=== PATIENT | male | born 1960 | race Caucasian/White ===

== ENCOUNTER 2017-03-31 11:23 | Inpatient (IN) ==
[2017-03-31 11:32] VITALS: BMI 25.9
--- OUTSIDE RECORDS SUMMARY | 2017-03-31 11:35 | External Medical Summary | Referral Summary ---
:1960 Author Organization [facility] Address [address] [place] [address] Care Team Providers Name Role Phone Sunil Perez Primary Care Physician Encounter [facility] [id number] Date(s): 01/03/15 - 01/03/15 [facility] [address], [place] [address] Final: OTHER MALAISE AND FATIGUE Final: CERVICAL SPONDYLOSIS WITHOUT MYELOPATHY Final: POSTSURGICAL ARTHRODESIS STATUS Discharge Disposition: 01-Home or Self Care Attending Physician: Kaci David MD Admitting Physician: Kaci David MD Vital Signs No data available for this section Problem List Condition Effective Dates Status Health Status Informant Acute pain(Confirmed) Active At risk for aspiration(Confirmed)1 Active At risk for injury(Confirmed)2 Active At risk of pressure sore(Confirmed) Active 1Problem added automatically by system based on initiation of At Risk for Aspiration Plan of [id number] added automatically by system based on initiation of Risk for Injury Plan of Care Allergies, Adverse Reactions, Alerts Substance Reaction Severity Status OxyCONTIN Active Medications acetaminophen 325 mg oral tablet 650 mg 2 tabs, Oral, q4hr, Pain Mild (1-3), 0 Refill(s) Start Date: 02/02/15 Status: Orderedbaclofen 10 mg oral tablet 10 mg 1 tabs, Oral, QID, # 120 tabs, 0 Refill(s) Start Date: 02/02/15 Stop Date: 03/04/15 Status: Orderedbisoprolol-hydrochlorothiazide 5 mg-6.25 mg oral tablet 1 tabs, Oral, Daily, # 30 tabs, 0 Refill(s) Start Date: 02/02/15 Status: OrderedCeleBREX 100 mg oral capsule 100 mg 1 caps, Oral, BID, # 60 caps, 0 Refill(s) Start Date: 02/02/15 Status: OrderedColace 100 mg oral capsule 100 mg 1 caps, Oral, BID, 0 Refill(s) Start Date: 02/02/15 Status: OrderedLasix 40 mg oral tablet 40 mg 1 tabs, Oral, Daily, # 30 tabs, 0 Refill(s) Start Date: 02/02/15 Status: Orderedloratadine 10 mg oral tablet 10 mg 1 tabs, Oral, Daily, 0 Refill(s) Start Date: 02/02/15 Status: Orderedpotassium chloride 20 mEq oral tablet, extended release 20 mEq 1 tabs, Oral, Daily, # 30 tabs, 0 Refill(s) Start Date: 02/02/15 Status: Orderedtamsulosin 0.4 mg oral capsule 0.4 mg 1 caps, Oral, Bedtime (once a day), # 30 caps, 0 Refill(s) Start Date: 02/02/15 Status: OrderedTums 500 mg oral tablet, chewable 500 mg 1 tabs, Oral, q4hr, GERD/Heartburn, 0 Refill(s) Start Date: 02/02/15 Status: Ordered Results No data available for this section Immunizations No data available for this section Procedures No data available for this section Social History Social History Type Response Smoking Status Former smoker Assessment and Plan No data available for this section
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
[2017-03-31] MEDS ORDERED: IBUPROFEN 200 MG TABLET PO PRN (13:18)
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
[2017-03-31] MEDS: IBUPROFEN 200 MG TABLET PO PRN (13:56)
--- NOTE | 2017-03-31 14:00 | IRU 24Hr Post Admit Eval ---
24 Hr Post Admission Physical - Relevant Changes Relevant Changes: No Reviewed: I have reviewed the patient's information and concur with the finding and results of the pre-admission screen. Certification: I certify the patient for rehabilitation. - Patient Condition (1) Cervical myelopathy Status: Chronic Code(s): G95.9 - Disease of spinal cord, unspecified Classification: Present on IRF Admission, IRF Tx That Should Address Diagnosis (2) Muscle spasticity Status: Chronic Code(s): M62.838 - Other muscle spasm Classification: Present on IRF Admission, IRF Tx That Should Address Diagnosis, Diagnosis Requiring Medical Follow Up (3) Benign essential hypertension Status: Chronic Code(s): I10 - Essential (primary) hypertension Classification: Present on IRF Admission, IRF Tx That Should Address Diagnosis, Diagnosis Requiring Medical Follow Up - Prior Functional Status Lives With: Spouse, With Family Residence Type: Apartment/Private Home Assitive Devices: Wheelchair Prior Functional Status: Depend. at home or school, Used assistive device, Need assist w/ home ADL, Depend. w/ IADL - Current Functional Status Current Level of Function: The patient currently requires minimal assistance for eating, maximal assistance for grooming, total assistance for bathing, upper and lower body dressing, toileting, bed/chair/wheelchair transfers, toilet transfers and wheelchair mobility. Failed Alternative Therapy: Yes (patient underwent previous physical therapy in the spring but has declined since that time.) Patient Requirements: The patient requires oversight by rehabilitation physician to manage their rehabilitation treatment plan and multidisciplinary approach to care that can only be provided in an IRF and requires a multidisciplinary approach to care, provided by professional PTs, OTs, STs, dieticians, RTs, rehabilitation nurses and is not available in lesser levels of care. Limitations Req: Mobility Impairment, ADL Impairment, Limited Mobility Physical Therapy Minutes: 90 Occupational Therapy Minutes: 90 Therapy: The patient is to receive therapy at least 5 days a week. - Complications/Comorbidities Impact on Functional Outcomes: The patient's muscle spasticity due to his cervical myelopathy may impact his functional outcome. Barriers to Discharge: Weakness, Endurance, Pain Control - Plan to Avoid Complications Plan to Avoid Complications: The patient cannot receive this care in a lesser intensive setting such as [facility] or Outpatient Therapy due to the patient requiring the following : Careful monitoring of the patient's blood pressure as he has experienced both low and high blood pressures in the past, 24 rehabilitation nursing management for his spasticity. .
[2017-03-31] MEDS ORDERED: INFLUENZA VAC. INJ. ADMIN CHARGE INJ ONE (14:10)
[2017-03-31] MEDS ORDERED: INFLUENZA VAC QIV 2017-18 (Fluarix*)(>=3yo) 0.5ml IM ONE (14:10)
[2017-03-31] MEDS ORDERED: ENOXAPARIN 40 MG/0.4 ML INJECTION SQ SCH (14:30)
[2017-03-31] MEDS: DOCUSATE SODIUM 100 MG CAPSULE PO SCH (22:01)
[2017-03-31] MEDS: TAMSULOSIN 0.4 MG CAPSULE PO SCH (22:01)
[2017-03-31] MEDS: ACETAMINOPHEN 325 MG TABLET PO PRN (22:04)
[2017-04-01] MEDS: DOCUSATE SODIUM 100 MG CAPSULE PO SCH ×2 (08:44→21:09)
[2017-04-01] MEDS: LACTOBACILLUS (15B cfu) CAPSULE PO SCH (08:45)
[2017-04-01] MEDS: IBUPROFEN 200 MG TABLET PO PRN (08:46)
--- NOTE | 2017-04-01 11:32 | IRU Progress Note ---
- Subjective/Serverity of Illness nAders was evaluated in his room on the IRU. He reports that he would prefer not to get the Lovenox in view of the presence of the baclofen pump which currently has saline in it. We will discontinue Lovenox. He has not received any to my knowledge. I did explain that the purpose was to prevent DVT/PE. He continues to decline this. Secondly, he would like to get his tizanidine at scheduled times. We will clarify this with pharmacy. His blood pressure is been quite variable with values ranging from 119 up to 187. We will continue with the current approach which is simply monitoring were than adding on a medication which might make him hypotensive. With regard to his spasticity, the main areas of concern are his low back and his legs he states. Exam Vital Signs: Temperature 98 F 04/01/17 08:08 Pulse Rate 110 H 04/01/17 08:08 Respiratory Rate 16 04/01/17 08:08 Blood Pressure 187/79 H 04/01/17 08:08 Pulse Oximetry 92 04/01/17 08:08 Height/Weight/BMI: Height 1.78 m Weight 82.2 kg Body Mass Index 25.9 Comments: The patient is awake, alert and oriented and in no acute distress. Pupils are equal. The neck is supple. Chest: Clear to auscultation bilaterally. Cor: RR with no gallop, click nor murmur Abd: soft with normo-active bowel sounds. There are no masses, no tenderness and no guarding. Extremities: No edema is noted. There are good pulses in both ankles. No cyanosis is present. Neuro: He is awake alert and oriented. Cranial nerves II through XII appear to be intact bilaterally. Does have significant muscle rigidity and spasm. Strength is reduced on flexion and extension and the arms as well as legs. Results IRU - Labs Labs: Reviewed labs. Sodium a bit up. Potassium normal. IRU A/P (1) Cervical myelopathy Current visit: Yes Status: Chronic He certainly has significant disability from his cervical myelopathy. Therapy is working with him. He declines Lovenox for the above-described reason. We will continue SCDs when he is in bed. (2) Muscle spasticity Current visit: Yes Status: Chronic Has significant muscle spasticity secondary to the cervical myelopathy. We will schedule tizanidine as he requests. (3) Benign essential hypertension Current visit: Yes Status: Chronic His blood pressures range from 119 up to 187. We will monitor for the time being. We would prefer to avoid hypotension of course. DVT Prophylaxis: SCD's, Lovenox Resuscitation Status: Full Code - Course Hospital Course: Biju Aponte MD: 04/01/17 11:32 Patient is just getting started with therapies yesterday and today. So far he is tolerating these well. Blood pressures are variable. We will make sure the tizanidine is provided at the appropriate times. - Interventions to Obtain Goals PT Treatment Plan: Functional Activities, Gait Training, Patient/Family Education, Therapeutic Exercise OT Treatment Plan: ADL (Basic Care), Balance Training, Pt./Family Education, Ther. Exercise for ADL Goals Progress/Modifications: Time spent with patient and on floor reviewing data and documentin min Barriers to dismissal: Muscle weakness, control of spasticity Medical decision-making: We reviewed his blood pressures and his history of hypotension. We will not add additional medications at present in view of his history of hypotension. We will adjust the tizanidine to be given at the time she requests to best treat his muscle spasticity. He requests no Lovenox. I explained to him the purpose of the Lovenox but he is concerned about the pain pump. I think it's a reasonable concern. We will discontinue Lovenox but make sure he is using SCDs when he is in bed. Please note that the patient's individual plan of care was developed and documented today, requiring review of therapy notes, medical conditions and anticipated functional recovery. This required additional medical decision making with regard to interaction of the patient's medical issues with the anticipated functional recovery. Please see separate document
--- NOTE | 2017-04-01 11:36 | IRU Plan of Care ---
U Overall Plan of Care - Date Date: 04/01/17 - Patient Impairments (1) Cervical myelopathy Code(s): G95.9 - Disease of spinal cord, unspecified Status: Chronic Classification: Present on IRF Admission, IRF Tx That Should Address Diagnosis (2) Muscle spasticity Code(s): M62.838 - Other muscle spasm Status: Chronic Classification: Present on IRF Admission, IRF Tx That Should Address Diagnosis, Diagnosis Requiring Medical Follow Up (3) Benign essential hypertension Code(s): I10 - Essential (primary) hypertension Status: Chronic Classification: Present on IRF Admission, IRF Tx That Should Address Diagnosis, Diagnosis Requiring Medical Follow Up - Relevant Changes Relevant Changes: No Reviewed: I have reviewed the patient's information and concur with the finding and results of the pre-admission screen. Certification: I certify the patient for rehabilitation. - Medical Prognosis Medical Prognosis: Good Vital Signs: Last Vital Signs Temp 98 F 04/01/17 08:08 Pulse 110 H 04/01/17 08:08 Resp 16 04/01/17 08:08 BP 187/79 H 04/01/17 08:08 Pulse Ox 92 04/01/17 08:08 - Anticipated Interventions Anticipated Interventions: The patient requires inpatient IRF care for PT, OT, and/or ST for residuals remaining from cervical myelopathy with resultant muscle spasm and weakness resulting in muscular weakness and strength deficits. Strength Deficits: Right Upper Extremity, Right Lower Extremity, Left Upper Extremity, Left Lower Extremity - Current Functional Status Failed Alternative Therapy: Yes (had been involved in outpatient physical therapy previously) Patient Requires: The patient requires oversight by rehabilitation physician to manage their rehabilitation treatment plan and multidisciplinary approach to care that can only be provided in an IRF and requires a multidisciplinary approach to care, provided by professional PTs, OTs, STs, dieticians, RTs, rehabilitation nurses and is not available in lesser levels of care. Physical Therapy Minutes: 90 Occupational Therapy Minutes: 90 Therapy: The patient is to receive therapy at least 5 days a week. - Anticipated LOS/Outcomes Anticipated Functional Outcome: It is anticipated the patient will be able to return home with assistance. He will not be independent but will hopefully require minimal assistance for transfers and minimal to moderate assistance for dressing. Anticipated Length of Stay (days): 14 Anticipated DC Destination: Home, Self Custodial Safety Plan: The patient will be provided with the development of a Home Safety Plan for return to a home or home-like environment and and to ensure safety post discharge. - Plan to Avoid Complications Barriers to Attaining Goals: Weakness, Endurance, Pain Control Plan to Avoid Complications: The patient cannot receive this care in a lesser intensive setting such as [facility] or Outpatient Therapy due to the patient requiring the following : Requiring close monitoring of blood pressures and intensive physical therapy and occupational therapy to return to his home.
[2017-04-01] MEDS: ACETAMINOPHEN 325 MG TABLET PO PRN (15:50)
[2017-04-01] MEDS: TAMSULOSIN 0.4 MG CAPSULE PO SCH (21:09)
[2017-04-02] MEDS: LACTOBACILLUS (15B cfu) CAPSULE PO SCH (09:12)
[2017-04-02] MEDS: DOCUSATE SODIUM 100 MG CAPSULE PO SCH ×2 (09:12→21:33)
[2017-04-02] MEDS: APAP/ASA/Caffeine 1 TAB PO PRN (10:36)
--- NOTE | 2017-04-02 11:32 | IRU Progress Note ---
- Subjective/Serverity of Illness Anders was evaluated in the inpatient rehabilitation unit. We had difficulty getting his tizanidine given on a scheduled basis yesterday but that has improved. He states that he understands and he is doing better this morning. He is working hard with therapy. He is able to stand. He reports that his bowels are moving adequately. He denies any chest pain or shortness of breath. He reports a good appetite. Continues to struggle with the muscle spasm predominantly. Also has had some headaches and would like his Excedrin. He states that this typically takes care of the problem very nicely. He states he does not use Excedrin on a daily basis however. He takes 1 or 2 and that tends to take care of things adequately. Denies any visual changes. We discussed his blood pressure. Is been significant elevated at times and then it has been down. He wondered about a medication given at nighttime for spasm which also affects blood pressure. He says that his physician has suggested something like that. I told him I was not certain what that would be but I would be happy to entertain the idea if he can get the name of it. Exam Vital Signs: Temperature 98.2 F 04/02/17 09:43 Pulse Rate 106 H 04/02/17 09:43 Respiratory Rate 18 04/02/17 09:43 Blood Pressure 127/86 04/02/17 09:43 Pulse Oximetry 96 04/02/17 09:43 Height/Weight/BMI: Height 1.78 m Weight 82.2 kg Body Mass Index 25.9 Comments: The patient is awake, alert and oriented and in no acute distress. Pupils are equal. The neck is supple. Chest: Clear to auscultation bilaterally. Cor: RR with no gallop, click nor murmur Abd: soft with normo-active bowel sounds. There are no masses, no tenderness and no guarding. Extremities: No edema is noted. No tremor is present. Does have some stiffness to movement. Results IRU - Labs Labs: Reviewed labs. Also reviewed blood pressures which are more well controlled at present. IRU A/P (1) Cervical myelopathy Current visit: Yes Status: Chronic Continues to have evidence of muscle spasm and weakness that her to cervical myelopathy. Denies neck pain at present. (2) Muscle spasticity Current visit: Yes Status: Chronic Tizanidine is now being given on a scheduled basis. He wondered about another medication and we will entertain this if he can get me the name of that. (3) Benign essential hypertension Current visit: Yes Status: Chronic His blood pressures are improved at the present time with values being in the 120s systolic. (4) Muscle contraction headache Current visit: Yes Status: Chronic He reports muscle contraction headache. We will start Excedrin per his request. Based on his discussion with me, I do not sense that he is having rebound headaches. DVT Prophylaxis: SCD's, Lovenox Resuscitation Status: Full Code - Course Hospital Course: Biju Aponte MD: 04/01/17 11:32 Patient is just getting started with therapies yesterday and today. So far he is tolerating these well. Blood pressures are variable. We will make sure the tizanidine is provided at the appropriate times. 04/02/17 11:34 He is cooperating well with therapies. Muscle spasm is an issue but he is getting his tizanidine on a more scheduled basis now. Blood pressures are improved. Does complain of muscle contraction headache. - Interventions to Obtain Goals PT Treatment Plan: Functional Activities, Gait Training, Patient/Family Education, Therapeutic Exercise OT Treatment Plan: ADL (Basic Care), Balance Training, Pt./Family Education, Ther. Exercise for ADL Goals Progress/Modifications: Time spent with patient and on floor reviewing data and documentin min Barriers to dismissal: Muscle spasm, muscle strength, balance, endurance Medical decision-making: Reviewed options with him regarding spasm control. He will get me the name of another medication that he is aware of. For the time being we will keep him on the tizanidine. With regard to his headache, this sounds like a muscle contraction headache. He does not sound like he is struggling with rebound and takes Excedrin only rarely at home. We will provide this per his request. Finally, the blood pressure is improved at present.
[2017-04-02] MEDS: ACETAMINOPHEN 325 MG TABLET PO PRN (16:53)
[2017-04-02] MEDS: TAMSULOSIN 0.4 MG CAPSULE PO SCH (21:32)
[2017-04-03] MEDS: DOCUSATE SODIUM 100 MG CAPSULE PO SCH ×2 (08:49→21:06)
[2017-04-03] MEDS: LACTOBACILLUS (15B cfu) CAPSULE PO SCH (08:49)
[2017-04-03] MEDS: TAMSULOSIN 0.4 MG CAPSULE PO SCH (21:07)
[2017-04-04] MEDS: APAP/ASA/Caffeine 1 TAB PO PRN (04:04)
[2017-04-04] MEDS: DOCUSATE SODIUM 100 MG CAPSULE PO SCH ×2 (09:00→21:28)
[2017-04-04] MEDS: LACTOBACILLUS (15B cfu) CAPSULE PO SCH (09:00)
--- NOTE | 2017-04-04 12:18 | IRU Progress Note ---
- Subjective/Serverity of Illness Anders was initially seen in the rehabilitation department and subsequent seen in his room. He is cooperative with therapy and is anxious to improve. He states that the exercises and therapy actually make him feel good. He is receiving cotreatment because of the level of skilled needs at this time. He is able to ambulate with total assistance about 13 feet. He is transferring with maximal assistance. Continues to struggle with discomfort in the low back and legs which are muscle spasms. He is on tizanidine which definitely does help him. He wondered about a trial of clonidine. I will discuss this with him in further detail. His blood pressures are reviewed and are reasonably well controlled at present. They remain quite variable and are up into the 140s at times and down into the 1 teens or 120s at times. He has a good appetite. He states that his bowels are moving. Exam Vital Signs: Temperature 98.3 F 04/04/17 08:00 Pulse Rate 88 04/04/17 08:00 Respiratory Rate 18 04/04/17 08:00 Blood Pressure 140/73 H 04/04/17 08:00 Pulse Oximetry 93 04/04/17 08:00 Height/Weight/BMI: Height 1.78 m Weight 82.2 kg Body Mass Index 25.9 Comments: The patient is awake, alert and oriented and in no acute distress. Pupils are equal. The neck is supple. Chest: Clear to auscultation bilaterally. Cor: RR with no gallop, click nor murmur Abd: soft with normo-active bowel sounds. There are no masses, no tenderness and no guarding. Extremities: No edema is noted. Neurologic: Compressed Gases Tester strength and fine motor movement is markedly reduced in the right upper extremity compared to the left. Extension and flexion at the elbows is reasonably strong. It is less on the right side with extension compared to the left side. In addition, the right foot on dorsiflexion is weaker than the left foot on dorsiflexion. Plantarflexion is normal bilaterally.. IRU A/P (1) Cervical myelopathy Current visit: Yes Status: Chronic Significant muscle weakness and reduced dexterity identified. He is cooperating with therapy very nicely and is making progress. He is receiving cotreatment due to the amount of skilled needs. (2) Muscle spasticity Current visit: Yes Status: Chronic Remains on tizanidine which is helpful. He wondered about clonidine and I will check into this for him. Primary concern is that of hypotension however. (3) Benign essential hypertension Current visit: Yes Status: Chronic Blood pressures are variable. They go up into the 140s and 50s at times. (4) Muscle contraction headache Current visit: Yes Status: Chronic DVT Prophylaxis: SCD's, Lovenox Resuscitation Status: Full Code - Course Hospital Course: Biju Aponte MD: 04/01/17 11:32 Patient is just getting started with therapies yesterday and today. So far he is tolerating these well. Blood pressures are variable. We will make sure the tizanidine is provided at the appropriate times. 04/02/17 11:34 He is cooperating well with therapies. Muscle spasm is an issue but he is getting his tizanidine on a more scheduled basis now. Blood pressures are improved. Does complain of muscle contraction headache. 04/04/17 12:19 He is cooperating and improving with therapies. Blood pressures remain variable. Muscle spasm continues to be an issue. - Interventions to Obtain Goals PT Treatment Plan: Functional Activities, Gait Training, Patient/Family Education, Therapeutic Exercise OT Treatment Plan: ADL (Basic Care), Balance Training, Pt./Family Education, Ther. Exercise for ADL Goals Progress/Modifications: Time spent with patient and on floor reviewing data and documentin min Barriers to dismissal: Muscle spasm, strength, endurance Medical decision-making: Review blood pressures. At present we will not change medications. Also discussed the issue of spasm controlled and we will consider clonidine. However I'm concerned about the possibility of hypotension.
--- NOTE | 2017-04-04 13:28 | IRU Team Meeting ---
IRU Team Meeting - Nursing Vital Signs: Vital Signs - 24 hr 04/03/17 16:00 04/03/17 17:51 04/03/17 22:59 Temperature 97.8 F 97.8 F Pulse Rate 96 100 85 Respiratory Rate 16 16 20 Blood Pressure 145/71 H 117/75 Pulse Oximetry 91 95 93 04/04/17 08:00 Temperature 98.3 F Pulse Rate 88 Respiratory Rate 18 Blood Pressure 140/73 H Pulse Oximetry 93 Current Medications: Acetaminophen (Tylenol) 325 - 650 mg PO Q6H PRN PRN Reason: pain Last Admin: 04/02/17 16:53 Dose: 650 mg Acetaminophen/Aspirin/Caffeine (Excedrin Xs) 2 tab PO Q6HR PRN PRN Reason: Headache Last Admin: 04/04/17 04:04 Dose: 2 tab Docusate Sodium (Colace) 100 mg PO BID JOHNNIE Last Admin: 04/04/17 09:00 Dose: 100 mg Ibuprofen (Motrin) 200 - 800 mg PO BID PRN PRN Reason: pain Last Admin: 04/01/17 08:46 Dose: 400 mg Lactobacillus Acidophilus (Culturelle) 1 cap PO DAILY JOHNNIE Last Admin: 04/04/17 09:00 Dose: 1 cap Tamsulosin HCl (Flomax) 0.4 mg PO HS [facility] Last Admin: 04/03/17 21:07 Dose: 0.4 mg Tizanidine HCl (Zanaflex) 4 mg PO 0700,1100,1600,2100 [facility] Last Admin: 04/04/17 11:08 Dose: 4 mg Current Medical Issues: Lower back and leg spasticity, hypertension (labile) Comments: I certify that I personally led the interdisciplinary team meeting and agree with comments, barriers and goals indicated. Team meeting was held in the patient's room with the patient and the following family members present: patient alone. Mr. De La Cruz is reevaluated today. From a medical standpoint, his blood pressures have been somewhat labile. At times he is in the 1 teens and at times he is up into the 140 range. He has been on antihypertensives in the past but these were discontinued due to hypotension, presumably from his spinal cord injury. At the present time we are just monitoring his blood pressures. He does have occasional muscle contraction headaches for which he takes an Excedrin. This is not on a daily basis. He denies any visual changes. He denies any difficulty swallowing. He is continent of urine. He uses urinal in the bed. He is on tizanidine for his muscle spasms. These are being given 4 times daily on a routine basis. He does have a pump in place but it is infusing only saline due to an adverse reaction to baclofen. He is on no narcotics and treating his pain with ibuprofen or Tylenol only. - Dietary He is eating adequately. His nutrition is felt to be good. - Physical Therapy Comments: He is extremely cooperative with therapy. From a physical therapy standpoint, upon admission he could transfer with at least 2 people (or more) assistance to but he was unable or unsafe to ambulate initially. Sit to stand transfers with maximal assistance. Bed/chair/wheelchair transfers were with total assistance. At the present time he has improved. He is able to ambulate with a total assistance of 2 people some 13 feet. He is still transferring sit to stand with maximal assistance. His bed/chair/wheelchair transfers have improved from total assistance to maximum assistance. Therapists indicate that he is making progress. He needs additional trunk strengthening as well. Barriers to progress included his spasticity and trunk weakness. - Occupational Therapy Comments: He is extremely cooperative with occupational therapy as well. Initially his eating ability was moderate assistance. Grooming was with total assistance. At the present time he is able to bathe with moderate assistance. Initially his upper body dressing was with maximal assistance and now it is with moderate assistance. Lower body dressing initially was with total assistance and it remains so at present. Toilet transfers are with the assistance of 2 people at least. Again he is improving with occupational therapy and extremely cooperative and eager to improve. He is limited by poor trunk strength as well as his balance, endurance and muscle spasms. - Goals Goals which are reviewed with the patient and with his input are as follows: 1. Increase sitting balance during lower body dressing to a level of minimal assistance 2. Increase standing to 10 minutes with no or minimal support 3. Ultimately he would like to play ball with his children. - Barriers to Discharge Barriers to Attaining Goals: Weakness, Balance, Endurance - Care Plan Anticipated DC Destination: Home, Self Care I have led this team conference and agree with the plan. Anticipated Length of Stay: Reassess in one week
[2017-04-04] MEDS: TAMSULOSIN 0.4 MG CAPSULE PO SCH (21:28)
[2017-04-04] MEDS: ACETAMINOPHEN 325 MG TABLET PO PRN (21:34)
[2017-04-05] MEDS: APAP/ASA/Caffeine 1 TAB PO PRN (06:18)
[2017-04-05] MEDS: LACTOBACILLUS (15B cfu) CAPSULE PO SCH (09:13)
[2017-04-05] MEDS: DOCUSATE SODIUM 100 MG CAPSULE PO SCH ×2 (09:13→23:42)
[2017-04-05] MEDS: TAMSULOSIN 0.4 MG CAPSULE PO SCH (23:42)
[2017-04-06] MEDS: APAP/ASA/Caffeine 1 TAB PO PRN (07:54)
[2017-04-06] MEDS: LACTOBACILLUS (15B cfu) CAPSULE PO SCH (09:09)
[2017-04-06] MEDS: DOCUSATE SODIUM 100 MG CAPSULE PO SCH ×2 (09:09→22:09)
[2017-04-06] MEDS ORDERED: HYDROCORTISONE 1% CREAM 28.35gm TOP PRN (18:43)
[2017-04-06] MEDS: HYDROCORTISONE 1% CREAM 28.35gm TOP SCH (22:10)
[2017-04-06] MEDS: TAMSULOSIN 0.4 MG CAPSULE PO SCH (22:10)
[2017-04-06] MEDS: ACETAMINOPHEN 325 MG TABLET PO PRN (23:15)
[2017-04-07] MEDS: DOCUSATE SODIUM 100 MG CAPSULE PO SCH ×2 (08:53→22:14)
[2017-04-07] MEDS: APAP/ASA/Caffeine 1 TAB PO PRN (08:53)
[2017-04-07] MEDS: LACTOBACILLUS (15B cfu) CAPSULE PO SCH (08:53)
[2017-04-07] MEDS: HYDROCORTISONE 1% CREAM 28.35gm TOP SCH ×3 (10:48→22:14)
--- NOTE | 2017-04-07 11:45 | IRU Progress Note ---
- Subjective/Serverity of Illness Anders was evaluated in his room on the inpatient rehabilitation unit. He continues to work hard with therapy and is cooperative. Has been struggling more with spasms. Had a severe spasm with straightening of the body when he was being bathed. He would like to try some clonidine. He had heard that that was helpful. I have done some research and cannot find an indication for that. I have a call placed to his pain management doctor Dr. Fleming in [place] and see what he thinks about that. I have left a message for him to call me back. Otherwise he seems to be eating adequately. He is having bowel movements. Pain is adequately controlled. He does have seborrheic dermatitis of his face. Hydrocortisone has been started. I told him we could use that or perhaps switch to ketoconizole if he requires prison treatment at some point. His blood pressures remained quite stable at this time. Exam Vital Signs: Temperature 98.1 F 04/07/17 08:00 Pulse Rate 79 04/07/17 08:00 Respiratory Rate 16 04/07/17 00:00 Blood Pressure 137/79 04/07/17 08:00 Pulse Oximetry 99 04/07/17 08:00 Height/Weight/BMI: Height 1.78 m Weight 82.2 kg Body Mass Index 25.9 Comments: The patient is awake, alert and oriented and in no acute distress. Pupils are equal. The neck is supple. Chest: Clear to auscultation bilaterally. Cor: RR with no gallop, click nor murmur Abd: soft with normo-active bowel sounds. There are no masses, no tenderness and no guarding. Extremities: No edema is noted. Neurologically he has muscle stiffness and increased tone in both the upper and lower extremities. IRU A/P (1) Cervical myelopathy Current visit: Yes Status: Chronic Pain is adequately controlled. (2) Muscle spasticity Current visit: Yes Status: Chronic He is on tizanidine for his muscle spasms. Still has episodes. I have a call placed to his pain management doctor regarding the question of clonidine use. (3) Benign essential hypertension Current visit: Yes Status: Chronic His blood pressures have been more well controlled. He has had no hypotensive episodes. (4) Muscle contraction headache Current visit: Yes Status: Chronic DVT Prophylaxis: SCD's, Lovenox Resuscitation Status: Full Code - Course Hospital Course: Biju Aponte MD: 04/01/17 11:32 Patient is just getting started with therapies yesterday and today. So far he is tolerating these well. Blood pressures are variable. We will make sure the tizanidine is provided at the appropriate times. 04/02/17 11:34 He is cooperating well with therapies. Muscle spasm is an issue but he is getting his tizanidine on a more scheduled basis now. Blood pressures are improved. Does complain of muscle contraction headache. 04/04/17 12:19 He is cooperating and improving with therapies. Blood pressures remain variable. Muscle spasm continues to be an issue. 04/07/17 11:46 He would like to try some clonidine. I have researched this and cannot find an indication regarding muscle spasm. Have placed a call to his pain management doctor in [place] to get his opinion. Blood pressures are controlled. Continues to work with therapy. - Interventions to Obtain Goals PT Treatment Plan: Functional Activities, Gait Training, Patient/Family Education, Therapeutic Exercise OT Treatment Plan: ADL (Basic Care), Balance Training, Pt./Family Education, Ther. Exercise for ADL Goals Progress/Modifications: Time spent with patient and on floor reviewing data and documentin min Barriers to dismissal: Muscle spasm, endurance, balance Medical decision-making: Have done some research regarding the use of clonidine and placed a call to his pain management doctor. His blood pressures are improved so I suppose we could give it a try from a safety standpoint. However I 'm not certain there is an official indication for this. Otherwise he is working hard with therapy and is willing to expend energy to try to get stronger.
[2017-04-07] MEDS: TAMSULOSIN 0.4 MG CAPSULE PO SCH (22:16)
[2017-04-08] MEDS: APAP/ASA/Caffeine 1 TAB PO PRN ×2 (06:00→17:07)
[2017-04-08] MEDS: LACTOBACILLUS (15B cfu) CAPSULE PO SCH (09:07)
[2017-04-08] MEDS: DOCUSATE SODIUM 100 MG CAPSULE PO SCH ×2 (09:07→21:27)
[2017-04-08] MEDS: HYDROCORTISONE 1% CREAM 28.35gm TOP SCH ×3 (10:24→21:27)
[2017-04-08] MEDS: ACETAMINOPHEN 325 MG TABLET PO PRN (10:24)
--- NOTE | 2017-04-08 11:20 | IRU Progress Note ---
- Subjective/Serverity of Illness Anders continues to work hard with therapy. He states that we are not wearing him out too much. Does have a bit increased pain and would like some ibuprofen. We are awaiting a phone call from his rail car painter/sandblaster to see about the use of clonidine. Again I advised him that I was not aware of the use of clonidine for muscle spasm. His blood pressures have been fairly well controlled. His spasm episodes are decreased according to the patient. Exam Vital Signs: Temperature 97.5 F 04/08/17 08:00 Pulse Rate 91 04/08/17 08:00 Respiratory Rate 16 04/08/17 08:00 Blood Pressure 140/78 H 04/08/17 08:00 Pulse Oximetry 97 04/08/17 08:00 Height/Weight/BMI: Height 1.78 m Weight 82.2 kg Body Mass Index 25.9 Comments: The patient is awake, alert and oriented and in no acute distress. Pupils are equal. The neck is supple. Chest: Clear to auscultation bilaterally. Cor: RR with no gallop, click nor murmur Abd: soft with normo-active bowel sounds. There are no masses, no tenderness and no guarding. Extremities: No edema is noted. Musculoskeletal and neurologic: Patient continues to have increased muscle tone , especially in the upper extremities. Also has generalized weakness. He is improving however. IRU A/P (1) Cervical myelopathy Current visit: Yes Status: Chronic We are planning to continue therapy at this time. He is improving. (2) Muscle spasticity Current visit: Yes Status: Chronic Muscle spasticity continues to be a limitation for his functional improvement. However it is reasonably controlled with the tizanidine. Does have a pump in place but currently just infusing saline. I have a phone call into his rail car painter/sandblaster with regard to the use of clonidine. We are awaiting his return call. (3) Benign essential hypertension Current visit: Yes Status: Chronic Blood pressures are in the 140 range. Denies lightheadedness. (4) Muscle contraction headache Current visit: Yes Status: Chronic DVT Prophylaxis: SCD's, Lovenox Resuscitation Status: Full Code - Course Hospital Course: Biju Aponte MD: 04/01/17 11:32 Patient is just getting started with therapies yesterday and today. So far he is tolerating these well. Blood pressures are variable. We will make sure the tizanidine is provided at the appropriate times. 04/02/17 11:34 He is cooperating well with therapies. Muscle spasm is an issue but he is getting his tizanidine on a more scheduled basis now. Blood pressures are improved. Does complain of muscle contraction headache. 04/04/17 12:19 He is cooperating and improving with therapies. Blood pressures remain variable. Muscle spasm continues to be an issue. 04/07/17 11:46 He would like to try some clonidine. I have researched this and cannot find an indication regarding muscle spasm. Have placed a call to his pain management doctor in [place] to get his opinion. Blood pressures are controlled. Continues to work with therapy. 04/08/17 11:19 He continues to progress with therapies. Awaiting phone call back from his rail car painter/sandblaster. - Interventions to Obtain Goals PT Treatment Plan: Functional Activities, Gait Training, Patient/Family Education, Therapeutic Exercise OT Treatment Plan: ADL (Basic Care), Balance Training, Pt./Family Education, Ther. Exercise for ADL Goals Progress/Modifications: Time spent with patient and on floor reviewing data and documentin min Barriers to dismissal: Muscle spasm, endurance Medical decision-making: We're awaiting a phone call back from his rail car painter/sandblaster. His blood pressures are starting to bounce up a bit. However he has had hypotension before and for this reason we will not add or change medications with regard to blood pressure control. Bowels are moving adequately. His appetite is good.
[2017-04-08] MEDS: TAMSULOSIN 0.4 MG CAPSULE PO SCH (21:28)
[2017-04-09] MEDS: LACTOBACILLUS (15B cfu) CAPSULE PO SCH (09:18)
[2017-04-09] MEDS: HYDROCORTISONE 1% CREAM 28.35gm TOP SCH ×3 (09:18→19:53)
[2017-04-09] MEDS: DOCUSATE SODIUM 100 MG CAPSULE PO SCH ×2 (09:18→19:54)
[2017-04-09] MEDS: TAMSULOSIN 0.4 MG CAPSULE PO SCH (19:54)
[2017-04-09] MEDS: APAP/ASA/Caffeine 1 TAB PO PRN (19:55)
[2017-04-10] MEDS: TAMSULOSIN 0.4 MG CAPSULE PO SCH ×2 (01:05→21:38)
[2017-04-10] MEDS: HYDROCORTISONE 1% CREAM 28.35gm TOP SCH ×4 (01:05→23:28)
[2017-04-10] MEDS: DOCUSATE SODIUM 100 MG CAPSULE PO SCH ×3 (01:05→21:38)
[2017-04-10] MEDS: LACTOBACILLUS (15B cfu) CAPSULE PO SCH (09:03)
[2017-04-10] MEDS: ACETAMINOPHEN 325 MG TABLET PO PRN (14:10)
--- NOTE | 2017-04-10 14:12 | IRU Progress Note ---
- Subjective/Serverity of Illness Anders is continuing to make progress. He continues to struggle with episodes of spasm. I am awaiting input from his pain management doctor regarding use of clonidine which I have not yet started. His blood pressures are reasonably well controlled. Has a good appetite. He denies any chest pain or shortness of breath. His bowels are moving. Exam Vital Signs: Temperature 98 F 04/10/17 08:00 Pulse Rate 105 H 04/10/17 08:00 Respiratory Rate 16 04/10/17 08:00 Blood Pressure 140/73 H 04/10/17 08:00 Pulse Oximetry 95 04/10/17 08:00 Height/Weight/BMI: Height 1.78 m Weight 79.9 kg Body Mass Index 25.9 Comments: The patient is awake, alert and oriented and in no acute distress. Pupils are equal. The neck is supple. Chest: Clear to auscultation bilaterally. Cor: RR with no gallop, click nor murmur Abd: soft with normo-active bowel sounds. There are no masses, no tenderness and no guarding. Extremities: No edema is noted. Musculoskeletal: He does have increased tone of both upper extremities and lower extremities. He does manifest significant myopathic weakness with his upper extremities in particular. He is able to sit up in the chair and maintain fairly good balance. IRU A/P (1) Cervical myelopathy Current visit: Yes Status: Chronic Denies much in the way of pain. He is using [id number] products for pain control including Tylenol, ibuprofen and Excedrin. He is on no narcotics. Muscle spasm and weakness continue. He is progressing with therapy. (2) Muscle spasticity Current visit: Yes Status: Chronic We're awaiting input from his pain management doctor regarding the use of clonidine. (3) Benign essential hypertension Current visit: Yes Status: Chronic His blood pressures are reasonably well controlled at present. (4) Muscle contraction headache Current visit: Yes Status: Chronic DVT Prophylaxis: SCD's, Lovenox Resuscitation Status: Full Code - Course Hospital Course: Biju Aponte MD: 04/01/17 11:32 Patient is just getting started with therapies yesterday and today. So far he is tolerating these well. Blood pressures are variable. We will make sure the tizanidine is provided at the appropriate times. 04/02/17 11:34 He is cooperating well with therapies. Muscle spasm is an issue but he is getting his tizanidine on a more scheduled basis now. Blood pressures are improved. Does complain of muscle contraction headache. 04/04/17 12:19 He is cooperating and improving with therapies. Blood pressures remain variable. Muscle spasm continues to be an issue. 04/07/17 11:46 He would like to try some clonidine. I have researched this and cannot find an indication regarding muscle spasm. Have placed a call to his pain management doctor in [place] to get his opinion. Blood pressures are controlled. Continues to work with therapy. 04/08/17 11:19 He continues to progress with therapies. Awaiting phone call back from his interior decorator painting. 04/10/17 14:11 He continues to progress. No new symptoms with regard to his spasm. Pain is adequately controlled. Appetite is good. Bowels are moving. - Interventions to Obtain Goals PT Treatment Plan: Functional Activities, Gait Training, Patient/Family Education, Therapeutic Exercise OT Treatment Plan: ADL (Basic Care), Balance Training, Pt./Family Education, Ther. Exercise for ADL Goals Progress/Modifications: Time spent with patient and on floor reviewing data and documentin min Barriers to dismissal: Strength, endurance, balance, tone Medical decision-making: We're awaiting a phone call from his pain management doctor regarding clonidine. Otherwise no changes in pain medication. Team meeting today. We would like to continue working with him and he is improving. I discussed the situation at home. His works outside the house. His son is just off to college. He does have a 13-year-old daughter at home when she is not in school. However he will require assistance at home. We are hoping to get him stronger so that he can have some degree of independence.
--- NOTE | 2017-04-10 14:43 | IRU Team Meeting ---
IRU Team Meeting - Nursing Vital Signs: Vital Signs - 24 hr 04/09/17 16:00 04/09/17 19:30 04/10/17 08:00 Temperature 98.1 F 98.2 F 98 F Pulse Rate 64 88 105 H Respiratory Rate 18 16 Blood Pressure 129/64 130/80 140/73 H Pulse Oximetry 93 95 95 Current Medications: Acetaminophen (Tylenol) 325 - 650 mg PO Q6H PRN PRN Reason: pain Last Admin: 04/10/17 14:10 Dose: 650 mg Acetaminophen/Aspirin/Caffeine (Excedrin Xs) 2 tab PO Q6HR PRN PRN Reason: Headache Last Admin: 04/09/17 19:55 Dose: 2 tab Docusate Sodium (Colace) 100 mg PO BID [facility] Last Admin: 04/10/17 09:03 Dose: 100 mg Hydrocortisone (Cortizone-10 Cream) 1 applic TOP TID [facility] Last Admin: 04/10/17 09:04 Dose: 1 applic Hydrocortisone (Cortizone-10 Cream) 1 applic TOP TID PRN PRN Reason: redness of face and neck Ibuprofen (Motrin) 200 - 800 mg PO BID PRN PRN Reason: pain Last Admin: 04/01/17 08:46 Dose: 400 mg Lactobacillus Acidophilus (Culturelle) 1 cap PO DAILY [facility] Last Admin: 04/10/17 09:03 Dose: 1 cap Tamsulosin HCl (Flomax) 0.4 mg PO HS [facility] Last Admin: 04/10/17 01:05 Dose: Not Given Tizanidine HCl (Zanaflex) 4 mg PO 0700,1100,1600,2100 [facility] Last Admin: 04/10/17 11:24 Dose: 4 mg Current Medical Issues: Episodes of muscle spasm, hypertension Comments: I certify that I personally led the interdisciplinary team meeting and agree with comments, barriers and goals indicated. Team meeting was held in the patient's room with the patient and the following family members present: - Physical Therapy Comments: Anders is working diligently with physical therapy. He is improved from maximum assist to total assist of 2 for bed/chair/wheelchair transfers. His ambulatory ability is about the same with total assist at 13 feet. He is working on standing endurance and has improved in this area as well. - Occupational Therapy Comments: He has improved with occupational therapy and works diligently with him. Currently he is eating with standby assistance. He is grooming with maximum assistance. Upper body and lower body dressing improved from total assistance initially now to maximum assistance. He is bathing with maximum assistance. - Goals Goals: 1. Ability to transfer with minimal assistance. 2. Toilet hygiene with minimal assistance. 3. Pull to stand one time in parallel bars 4. Patient increase standing endurance to 10 minutes with upper extremity support (has succeeded at 7 minutes currently) 5. Patient to demonstrate increased ability to advance lower extremities at a minimum of 4 steps. This goal has been met. - Barriers to Discharge Barriers to Attaining Goals: Weakness, Balance, Endurance, Other (muscle tone) - Care Plan Anticipated DC Destination: Home, Self Care I have led this team conference and agree with the plan. Anticipated Length of Stay: Reassess in one week
[2017-04-11] MEDS: APAP/ASA/Caffeine 1 TAB PO PRN (08:44)
[2017-04-11] MEDS: LACTOBACILLUS (15B cfu) CAPSULE PO SCH (08:45)
[2017-04-11] MEDS: HYDROCORTISONE 1% CREAM 28.35gm TOP SCH ×3 (08:45→21:24)
[2017-04-11] MEDS: DOCUSATE SODIUM 100 MG CAPSULE PO SCH ×2 (08:45→21:25)
--- NOTE | 2017-04-11 14:43 | IRU Progress Note ---
- Subjective/Serverity of Illness Anders was evaluated in his room on IRU. He believes he is getting a sore throat like some Chloraseptic. This will be provided. He denies any fever. He does have headaches occasionally, typically several times weekly. However these appear to be seasonal and he believes they may be due to allergies. They are bitemporal. There are no visual changes identified. He did well last night with a late night shower and did not have much in way of spasm. I have visited with his pain management physician Dr. Fleming who recommends trying a Catapres tablet at bedtime only for spasm. We discussed this with Anders today and he is eager to try that. We did tell him there was a risk of hypotension as the main side effect (as well as fatigue). We will start with just 1 at bedtime to see if that is tolerated. His blood pressures are reviewed and seemed to be adequate. Exam Vital Signs: Temperature 98.4 F 04/11/17 08:00 Pulse Rate 91 04/11/17 08:00 Respiratory Rate 12 04/11/17 08:00 Blood Pressure 135/86 04/11/17 08:00 Pulse Oximetry 92 04/11/17 08:00 Height/Weight/BMI: Height 1.78 m Weight 79.9 kg Body Mass Index 25.9 Comments: The patient is awake, alert and oriented and in no acute distress. Pupils are equal. The neck is supple. Chest: Clear to auscultation bilaterally. Cor: RR with no gallop, click nor murmur Abd: soft with normo-active bowel sounds. There are no masses, no tenderness and no guarding. Extremities: No edema is noted. Increased tone as before. IRU A/P (1) Cervical myelopathy Current visit: Yes Status: Chronic Pain management is adequate with the use of ibuprofen and Tylenol. He is improving with therapy and progressing. (2) Muscle spasticity Current visit: Yes Status: Chronic Discussed with Anders in detail. I have visited with his pain management doctor, Dr. Fleming who recommends 0.1 mg of Catapres at bedtime for muscle spasm. I told Anders that this could result in lower blood pressures as well as fatigue. He would like to try it anyway. (3) Benign essential hypertension Current visit: Yes Status: Chronic His blood pressures appear to be stable. (4) Muscle contraction headache Current visit: Yes Status: Chronic Does have occasional muscle contraction headaches. There are fairly frequent it seems. They're bitemporal and possibly seasonal. No visual changes. They do not appear to be consistent with migraines. DVT Prophylaxis: SCD's, Lovenox Resuscitation Status: Full Code - Course Hospital Course: Biju Aponte MD: 04/01/17 11:32 Patient is just getting started with therapies yesterday and today. So far he is tolerating these well. Blood pressures are variable. We will make sure the tizanidine is provided at the appropriate times. 04/02/17 11:34 He is cooperating well with therapies. Muscle spasm is an issue but he is getting his tizanidine on a more scheduled basis now. Blood pressures are improved. Does complain of muscle contraction headache. 04/04/17 12:19 He is cooperating and improving with therapies. Blood pressures remain variable. Muscle spasm continues to be an issue. 04/07/17 11:46 He would like to try some clonidine. I have researched this and cannot find an indication regarding muscle spasm. Have placed a call to his pain management doctor in [place] to get his opinion. Blood pressures are controlled. Continues to work with therapy. 04/08/17 11:19 He continues to progress with therapies. Awaiting phone call back from his electrostatic paint operator. 04/10/17 14:11 He continues to progress. No new symptoms with regard to his spasm. Pain is adequately controlled. Appetite is good. Bowels are moving. 04/11/17 14:43 Continues to progress with therapies. He would like Chloraseptic for sore throat. There is no fever. We will start Catapres -- please see above discussion. - Interventions to Obtain Goals PT Treatment Plan: Functional Activities, Gait Training, Patient/Family Education, Therapeutic Exercise OT Treatment Plan: ADL (Basic Care), Balance Training, Pt./Family Education, Ther. Exercise for ADL Goals Progress/Modifications: Time spent with patient and on floor reviewing data and documentin min Barriers to dismissal: increased tone, endurance, truncal strength, muscle spasms Medical decision-making: We reviewed his case in detail. I reviewed his blood pressures. They seem to be adequate and it is reasonable to try Catapres per recommendation of his doctor. He is having a sore throat. We will start Catapres at bedtime only. I called the pharmacy in this regard as it typically is a twice a day dosing. In addition we'll start Chloraseptic.
[2017-04-11] MEDS: SORE THROAT SPRAY 20ml PO PRN ×2 (15:53→21:24)
[2017-04-11] MEDS: TAMSULOSIN 0.4 MG CAPSULE PO SCH (21:25)
[2017-04-12] MEDS: SORE THROAT SPRAY 20ml PO PRN ×3 (07:04→21:46)
[2017-04-12] MEDS: DOCUSATE SODIUM 100 MG CAPSULE PO SCH ×2 (09:12→21:46)
[2017-04-12] MEDS: LACTOBACILLUS (15B cfu) CAPSULE PO SCH (09:12)
[2017-04-12] MEDS: HYDROCORTISONE 1% CREAM 28.35gm TOP SCH ×3 (09:13→21:46)
[2017-04-12] MEDS: APAP/ASA/Caffeine 1 TAB PO PRN (10:23)
[2017-04-12] MEDS: TAMSULOSIN 0.4 MG CAPSULE PO SCH (21:46)
[2017-04-13] MEDS: LACTOBACILLUS (15B cfu) CAPSULE PO SCH (09:32)
[2017-04-13] MEDS: DOCUSATE SODIUM 100 MG CAPSULE PO SCH ×2 (09:32→21:18)
[2017-04-13] MEDS: APAP/ASA/Caffeine 1 TAB PO PRN (09:33)
[2017-04-13] MEDS: HYDROCORTISONE 1% CREAM 28.35gm TOP SCH ×3 (10:00→21:19)
[2017-04-13] MEDS: TAMSULOSIN 0.4 MG CAPSULE PO SCH (21:19)
[2017-04-14] MEDS: APAP/ASA/Caffeine 1 TAB PO PRN (09:03)
[2017-04-14] MEDS: DOCUSATE SODIUM 100 MG CAPSULE PO SCH ×2 (09:04→21:59)
[2017-04-14] MEDS: LACTOBACILLUS (15B cfu) CAPSULE PO SCH (09:04)
[2017-04-14] MEDS: HYDROCORTISONE 1% CREAM 28.35gm TOP SCH ×3 (09:04→21:59)
--- NOTE | 2017-04-14 11:44 | IRU Progress Note ---
- Subjective/Serverity of Illness Anders had complained of some sore throat last week. That is significantly improved. Does have occasional headaches off and on which are not new for him. He denies any fever. He feels much better after working out with physical therapy and occupational therapy. In particular, the upper extremity exercises have been very beneficial for him. I inquired if he could identify specific areas that he had improved since being at home. He states that he is able to eat much better in terms of hand motion and fine motor movement. In addition, his neck discomfort is much improved with increased range of motion and reduced pain and spasm/stiffness in that area. Finally, he believes that he is able to stand much better and has better lower extremity strength. He states that he feels much better after he gets a workout with therapy. We encouraged him to continue this at home as well. He denies any current cardiopulmonary complaints. Seems to be tolerating the Catapres well. He states he believes it has helped the spasms a bit. He denies any lightheadedness. Exam Vital Signs: Temperature 97.6 F 04/14/17 08:37 Pulse Rate 81 04/14/17 08:37 Respiratory Rate 18 04/14/17 08:37 Blood Pressure 121/67 04/14/17 08:37 Pulse Oximetry 95 04/14/17 08:37 Height/Weight/BMI: Height 1.78 m Weight 79.9 kg Body Mass Index 25.9 Comments: The patient is awake, alert and oriented and in no acute distress. Pupils are equal. The neck is supple. Chest: Clear to auscultation bilaterally. Cor: RR with no gallop, click nor murmur Abd: soft with normo-active bowel sounds. There are no masses, no tenderness and no guarding. Extremities: No edema is noted. Upper and lower extremity tone continues to be a bit increased. IRU A/P (1) Cervical myelopathy Current visit: Yes Status: Chronic He believes that he is improved since being here on the IRU with regard to range of motion of the neck, discomfort in the neck and mobility in general. He also believes that his strength is improving the lower extremities and fine motor movement is improved in the upper extremities. (2) Muscle spasticity Current visit: Yes Status: Chronic He relates that the clonidine has been of benefit at bedtime. We will continue the current tiny dose of 0.1 mg at at bedtime daily for at least a week. Following that is still tolerated we will increase to 0.2 mg at bedtime. I recognize that this is a twice a day medication. However in view of his risk for hypotension we are starting very slow. (3) Benign essential hypertension Current visit: Yes Status: Chronic His blood pressures are stable even with the use of the Catapres. (4) Muscle contraction headache Current visit: Yes Status: Chronic DVT Prophylaxis: SCD's, Lovenox Resuscitation Status: Full Code - Course Hospital Course: Biju Aponte MD: 04/01/17 11:32 Patient is just getting started with therapies yesterday and today. So far he is tolerating these well. Blood pressures are variable. We will make sure the tizanidine is provided at the appropriate times. 04/02/17 11:34 He is cooperating well with therapies. Muscle spasm is an issue but he is getting his tizanidine on a more scheduled basis now. Blood pressures are improved. Does complain of muscle contraction headache. 04/04/17 12:19 He is cooperating and improving with therapies. Blood pressures remain variable. Muscle spasm continues to be an issue. 04/07/17 11:46 He would like to try some clonidine. I have researched this and cannot find an indication regarding muscle spasm. Have placed a call to his pain management doctor in [place] to get his opinion. Blood pressures are controlled. Continues to work with therapy. 04/08/17 11:19 He continues to progress with therapies. Awaiting phone call back from his paint spraying machine operator helper. 04/10/17 14:11 He continues to progress. No new symptoms with regard to his spasm. Pain is adequately controlled. Appetite is good. Bowels are moving. 04/11/17 14:43 Continues to progress with therapies. He would like Chloraseptic for sore throat. There is no fever. We will start Catapres -- please see above discussion. 04/14/17 11:46 Continues to improve with therapies. Tolerating Catapres well. No evidence of hypotension He feels as though the Catapres has reduced his spasms a bit. - Interventions to Obtain Goals PT Treatment Plan: Functional Activities, Gait Training, Patient/Family Education, Therapeutic Exercise OT Treatment Plan: ADL (Basic Care), Balance Training, Pt./Family Education, Ther. Exercise for ADL Goals Progress/Modifications: Time spent with patient and on floor reviewing data and documentin min Barriers to dismissal: Strength, balance, endurance Medical decision-making: We reassess his need for the Catapres. His blood pressures are stable on this and or not hypotensive. He is tolerating it well. He believes that perhaps there has been improvement in his spasm intensity with use of Catapres. I discussed with him that we would go very slow and wait at least a week before making an adjustment in this medication. In addition, we reviewed the progress he has made with regard to therapy. He is working hard. He has been very diligent and we have seen improvement.
[2017-04-14] MEDS: ACETAMINOPHEN 325 MG TABLET PO PRN (21:58)
[2017-04-14] MEDS: TAMSULOSIN 0.4 MG CAPSULE PO SCH (22:00)
[2017-04-15] MEDS: APAP/ASA/Caffeine 1 TAB PO PRN (06:38)
[2017-04-15] MEDS: LACTOBACILLUS (15B cfu) CAPSULE PO SCH (08:59)
[2017-04-15] MEDS: DOCUSATE SODIUM 100 MG CAPSULE PO SCH ×2 (08:59→21:48)
--- NOTE | 2017-04-15 10:28 | IRU Progress Note ---
- Subjective/Serverity of Illness Anders is pleased with his progress. His spasms are much improved. He is having bowel movements. Continues to get stronger. Exam Vital Signs: Temperature 97.5 F 04/15/17 08:00 Pulse Rate 75 04/15/17 08:00 Respiratory Rate 16 04/15/17 08:00 Blood Pressure 121/69 04/15/17 08:00 Pulse Oximetry 96 04/15/17 08:00 Height/Weight/BMI: Height 1.78 m Weight 80.2 kg Body Mass Index 25.9 Comments: The patient is awake, alert and oriented and in no acute distress. Pupils are equal. The neck is supple. Chest: Clear to auscultation bilaterally. Cor: RR with no gallop, click nor murmur Abd: soft with normo-active bowel sounds. There are no masses, no tenderness and no guarding. Extremities: No edema is noted. There are good pulses in both ankles. No cyanosis is present. Increased muscle tone noted of all 4 extremities. IRU A/P (1) Cervical myelopathy Current visit: Yes Status: Chronic Spasms or definitely improved. He was recently started on Catapres. He is working with therapy and making progress. (2) Muscle spasticity Current visit: Yes Status: Chronic Spasms are fewer and less intense. (3) Benign essential hypertension Current visit: Yes Status: Chronic (4) Muscle contraction headache Current visit: Yes Status: Chronic DVT Prophylaxis: SCD's, Lovenox Resuscitation Status: Full Code - Course Hospital Course: Biju Aponte MD: 04/01/17 11:32 Patient is just getting started with therapies yesterday and today. So far he is tolerating these well. Blood pressures are variable. We will make sure the tizanidine is provided at the appropriate times. 04/02/17 11:34 He is cooperating well with therapies. Muscle spasm is an issue but he is getting his tizanidine on a more scheduled basis now. Blood pressures are improved. Does complain of muscle contraction headache. 04/04/17 12:19 He is cooperating and improving with therapies. Blood pressures remain variable. Muscle spasm continues to be an issue. 04/07/17 11:46 He would like to try some clonidine. I have researched this and cannot find an indication regarding muscle spasm. Have placed a call to his pain management doctor in [place] to get his opinion. Blood pressures are controlled. Continues to work with therapy. 04/08/17 11:19 He continues to progress with therapies. Awaiting phone call back from his acid painter. 04/10/17 14:11 He continues to progress. No new symptoms with regard to his spasm. Pain is adequately controlled. Appetite is good. Bowels are moving. 04/11/17 14:43 Continues to progress with therapies. He would like Chloraseptic for sore throat. There is no fever. We will start Catapres -- please see above discussion. 04/14/17 11:46 Continues to improve with therapies. Tolerating Catapres well. No evidence of hypotension He feels as though the Catapres has reduced his spasms a bit. 04/15/17 10:28 Tolerating Catapres well. No evidence of hypotension. Spasms are improved. - Interventions to Obtain Goals PT Treatment Plan: Functional Activities, Gait Training, Patient/Family Education, Therapeutic Exercise OT Treatment Plan: ADL (Basic Care), Balance Training, Pt./Family Education, Ther. Exercise for ADL
[2017-04-15] MEDS: HYDROCORTISONE 1% CREAM 28.35gm TOP SCH ×3 (11:29→21:48)
[2017-04-15] MEDS: ACETAMINOPHEN 325 MG TABLET PO PRN (11:31)
--- NOTE | 2017-04-15 14:01 | IRU Team Meeting ---
IRU Team Meeting - Nursing Vital Signs: Vital Signs - 24 hr 04/14/17 16:00 04/14/17 23:06 04/15/17 08:00 Temperature 97 F 98.1 F 97.5 F Pulse Rate 63 89 75 Respiratory Rate 16 14 16 Blood Pressure 130/79 146/82 H 121/69 Pulse Oximetry 96 94 96 Current Medications: Acetaminophen (Tylenol) 325 - 650 mg PO Q6H PRN PRN Reason: pain Last Admin: 04/15/17 11:31 Dose: 650 mg Acetaminophen/Aspirin/Caffeine (Excedrin Xs) 2 tab PO Q6HR PRN PRN Reason: Headache Last Admin: 04/15/17 06:38 Dose: 2 tab Clonidine HCl (Catapres) 0.1 mg PO HS [facility] Last Admin: 04/14/17 21:59 Dose: 0.1 mg Docusate Sodium (Colace) 100 mg PO BID [facility] Last Admin: 04/15/17 08:59 Dose: 100 mg Hydrocortisone (Cortizone-10 Cream) 1 applic TOP TID [facility] Last Admin: 04/15/17 11:29 Dose: 1 applic Hydrocortisone (Cortizone-10 Cream) 1 applic TOP TID PRN PRN Reason: redness of face and neck Ibuprofen (Motrin) 200 - 800 mg PO BID PRN PRN Reason: pain Last Admin: 04/01/17 08:46 Dose: 400 mg Lactobacillus Acidophilus (Culturelle) 1 cap PO DAILY [facility] Last Admin: 04/15/17 08:59 Dose: 1 cap Tamsulosin HCl (Flomax) 0.4 mg PO HS [facility] Last Admin: 04/14/17 22:00 Dose: 0.4 mg Throat Lozenges (Chloraseptic [place]) 3 spray PO Q2H PRN PRN Reason: Sore throat Last Admin: 04/12/17 21:46 Dose: 3 spray Tizanidine HCl (Zanaflex) 4 mg PO 0700,1100,1600,2100 [facility] Last Admin: 04/15/17 11:29 Dose: 4 mg Current Medical Issues: muscle spasms, hypertension Comments: I certify that I personally led the interdisciplinary team meeting and agree with comments, barriers and goals indicated. Team meeting was held in the patient's room with the patient and the following family members present: Anders is doing much better with regard to spasm control. We started Catapres recently and that has seemingly helped his spasm control significantly. In addition, his blood pressures have been stable and have not been negatively impacted by the use of Catapres. Nursing has noted that he seems to be transferring more efficiently and more safely with 1-2 person assist with a stand pivot transfer. - Physical Therapy Comments: Anders is extremely cooperative with physical therapy and occupational therapy. He finds the exercises to be extremely helpful and is improving his range of motion and strength. He is currently able to transfer bed/chair/wheelchair with maximum assistance of 1 person. He is able to ambulate with the parallel bars 20 feet. He is making some progress with transfers and able to ambulate in the parallel bars 20 feet. He may well need a motorized wheelchair for safe ambulation at home. - Occupational Therapy Comments: He currently is standby assist to supervision level for eating. He is contact- guard assistance for grooming. Upper body dressing, lower body dressing and bathing ability are all moderate assistance. He is maximal assistance for tub transfers, moderate assistance for toileting assistance and maximal assistance for toilet transfer. Continues to make improvement. He is utilizing equipment with a long handled shoe horn, guest laundry attendant, sock aid. Improvement is noted in self- cares. - Goals Continued goals: 1. Toilet hygiene with minimal assistance 2. Transfer with minimal assistance 3. Pull to engineer technician parallel bars 4. Increased standing endurance to 10 minutes (currently at 7 minutes). - Barriers to Discharge Barriers to Attaining Goals: Weakness, Endurance - Care Plan Anticipated DC Destination: Home, Self Care I have led this team conference and agree with the plan. Anticipated Length of Stay (days): 6
[2017-04-15] MEDS: TAMSULOSIN 0.4 MG CAPSULE PO SCH (21:48)
[2017-04-16] MEDS: HYDROCORTISONE 1% CREAM 28.35gm TOP SCH ×3 (08:56→22:39)
[2017-04-16] MEDS: LACTOBACILLUS (15B cfu) CAPSULE PO SCH (08:56)
[2017-04-16] MEDS: DOCUSATE SODIUM 100 MG CAPSULE PO SCH ×2 (08:57→22:39)
--- NOTE | 2017-04-16 12:25 | IRU Progress Note ---
- Subjective/Serverity of Illness Anders was evaluated in his room on the rehabilitation unit. He is working with therapy at the present time. He is working hard. He does have very poor truncal strength. He is improving in his transfers however. His spasms are improved. They seem to be triggered when he is in more of a stiff or straight position. He is also on Catapres and seems to be tolerating that well. His appetite is good. He reports his bowels are moving adequately. Exam Vital Signs: Temperature 98.1 F 04/16/17 08:00 Pulse Rate 79 04/16/17 08:00 Respiratory Rate 18 04/16/17 08:00 Blood Pressure 134/75 04/16/17 08:00 Pulse Oximetry 96 04/16/17 08:00 Height/Weight/BMI: Height 1.78 m Weight 80.2 kg Body Mass Index 25.9 Comments: The patient is awake, alert and oriented and in no acute distress. Pupils are equal. The neck is supple. Chest: Clear to auscultation bilaterally. Cor: RR with no gallop, click nor murmur Abd: soft with normo-active bowel sounds. There are no masses, no tenderness and no guarding. Extremities: No edema is noted. IRU A/P (1) Cervical myelopathy Current visit: Yes Status: Chronic Muscle tone continues to be increased. Truncal strength is poor. He is cooperative with therapy and actively is involved. Slow improvement noted. (2) Muscle spasticity Current visit: Yes Status: Chronic This appears to be improved possibly by avoiding positions that triggered as well as by the Catapres. (3) Benign essential hypertension Current visit: Yes Status: Chronic Blood pressures look good. (4) Muscle contraction headache Current visit: Yes Status: Chronic DVT Prophylaxis: SCD's, Lovenox Resuscitation Status: Full Code - Course Hospital Course: Biju Aponte MD: 04/01/17 11:32 Patient is just getting started with therapies yesterday and today. So far he is tolerating these well. Blood pressures are variable. We will make sure the tizanidine is provided at the appropriate times. 04/02/17 11:34 He is cooperating well with therapies. Muscle spasm is an issue but he is getting his tizanidine on a more scheduled basis now. Blood pressures are improved. Does complain of muscle contraction headache. 04/04/17 12:19 He is cooperating and improving with therapies. Blood pressures remain variable. Muscle spasm continues to be an issue. 04/07/17 11:46 He would like to try some clonidine. I have researched this and cannot find an indication regarding muscle spasm. Have placed a call to his pain management doctor in [place] to get his opinion. Blood pressures are controlled. Continues to work with therapy. 04/08/17 11:19 He continues to progress with therapies. Awaiting phone call back from his paint roller covermaker. 04/10/17 14:11 He continues to progress. No new symptoms with regard to his spasm. Pain is adequately controlled. Appetite is good. Bowels are moving. 04/11/17 14:43 Continues to progress with therapies. He would like Chloraseptic for sore throat. There is no fever. We will start Catapres -- please see above discussion. 04/14/17 11:46 Continues to improve with therapies. Tolerating Catapres well. No evidence of hypotension He feels as though the Catapres has reduced his spasms a bit. 04/15/17 10:28 Tolerating Catapres well. No evidence of hypotension. Spasms are improved. 04/16/17 12:24 Anders continues to be very cooperative with therapy and is improving. - Interventions to Obtain Goals PT Treatment Plan: Functional Activities, Gait Training, Patient/Family Education, Therapeutic Exercise OT Treatment Plan: ADL (Basic Care), Balance Training, Pt./Family Education, Ther. Exercise for ADL
[2017-04-16] MEDS: POLYETHYL GLYCOL 3350 17gm PACKET PO PRN (22:39)
[2017-04-16] MEDS: TAMSULOSIN 0.4 MG CAPSULE PO SCH (22:40)
[2017-04-17] MEDS: LACTOBACILLUS (15B cfu) CAPSULE PO SCH (08:24)
[2017-04-17] MEDS: DOCUSATE SODIUM 100 MG CAPSULE PO SCH ×2 (08:24→22:48)
[2017-04-17] MEDS: HYDROCORTISONE 1% CREAM 28.35gm TOP SCH ×3 (10:04→22:49)
[2017-04-17] MEDS: ACETAMINOPHEN 325 MG TABLET PO PRN ×2 (10:05→10:12)
[2017-04-17] MEDS: APAP/ASA/Caffeine 1 TAB PO PRN (16:58)
[2017-04-17] MEDS: TAMSULOSIN 0.4 MG CAPSULE PO SCH (22:48)
[2017-04-18] MEDS: DOCUSATE SODIUM 100 MG CAPSULE PO SCH ×2 (08:51→21:44)
[2017-04-18] MEDS: LACTOBACILLUS (15B cfu) CAPSULE PO SCH (08:51)
--- NOTE | 2017-04-18 10:30 | IRU Progress Note ---
- Subjective/Serverity of Illness Anders was reassessed on the inpatient rehabilitation unit. He is working with physical therapy. He is making slow progress. His strength is improving. Spasms continue to be improved, either due to improved positioning or the Catapres. We had a long discussion about the Catapres. We will plan to increase this to 0.2 mg at bedtime on Friday. He denies any lightheadedness at present. He reports his bowels are moving well. His appetite is good. He denies any chest pain or shortness of breath cough, or sputum. Exam Vital Signs: Temperature 97.9 F 04/17/17 22:13 Pulse Rate 74 04/17/17 22:13 Respiratory Rate 18 04/17/17 22:13 Blood Pressure 136/86 04/17/17 22:13 Pulse Oximetry 93 04/17/17 22:13 Height/Weight/BMI: Height 1.78 m Weight 80.2 kg Body Mass Index 25.9 Comments: The patient is awake, alert and oriented and in no acute distress. He is very cooperative and positive. Pupils are equal. The neck is supple. Chest: Clear to auscultation bilaterally. Cor: RR with no gallop, click nor murmur Abd: soft with normo-active bowel sounds. There are no masses, no tenderness and no guarding. Extremities: No edema is noted. Neurologic: continues to demonstrate increased tone in the extremities. Has a lot of truncal weakness and neck weakness. IRU A/P (1) Cervical myelopathy Current visit: Yes Status: Chronic He is making progress with therapy. Spasms are improved. We will increase Catapres to 0.2 mg at bedtime daily in a couple of days. (2) Muscle spasticity Current visit: Yes Status: Chronic See above discussion regarding his spasticity (3) Benign essential hypertension Current visit: Yes Status: Chronic Blood pressures remain stable on the Catapres. We will continue to monitor these in view of the increased dose of Catapres. (4) Muscle contraction headache Current visit: Yes Status: Chronic DVT Prophylaxis: SCD's, Lovenox Resuscitation Status: Full Code - Course Hospital Course: Biju Aponte MD: 04/01/17 11:32 Patient is just getting started with therapies yesterday and today. So far he is tolerating these well. Blood pressures are variable. We will make sure the tizanidine is provided at the appropriate times. 04/02/17 11:34 He is cooperating well with therapies. Muscle spasm is an issue but he is getting his tizanidine on a more scheduled basis now. Blood pressures are improved. Does complain of muscle contraction headache. 04/04/17 12:19 He is cooperating and improving with therapies. Blood pressures remain variable. Muscle spasm continues to be an issue. 04/07/17 11:46 He would like to try some clonidine. I have researched this and cannot find an indication regarding muscle spasm. Have placed a call to his pain management doctor in [place] to get his opinion. Blood pressures are controlled. Continues to work with therapy. 04/08/17 11:19 He continues to progress with therapies. Awaiting phone call back from his chest painting and sealing supervisor. 04/10/17 14:11 He continues to progress. No new symptoms with regard to his spasm. Pain is adequately controlled. Appetite is good. Bowels are moving. 04/11/17 14:43 Continues to progress with therapies. He would like Chloraseptic for sore throat. There is no fever. We will start Catapres -- please see above discussion. 04/14/17 11:46 Continues to improve with therapies. Tolerating Catapres well. No evidence of hypotension He feels as though the Catapres has reduced his spasms a bit. 04/15/17 10:28 Tolerating Catapres well. No evidence of hypotension. Spasms are improved. 04/16/17 12:24 Anders continues to be very cooperative with therapy and is improving. 04/18/17 10:29 Tolerating Catapres well. Spasms are improved. He is cooperative with therapy and improving. Plan to increase Catapres on Friday evening. - Interventions to Obtain Goals PT Treatment Plan: Balance/Proprioception, Functional Activities, Gait Training , Patient/Family Education, Therapeutic Exercise OT Treatment Plan: ADL (Basic Care), Balance Training, Pt./Family Education, Ther. Exercise for ADL Goals Progress/Modifications: Time spent with patient and on floor reviewing data and documentin min Barriers to dismissal: Muscle weakness, balance, endurance Medical decision-making: I have assessed his blood pressure situation as well as his spasms and myopathy. He is seemed to gain some benefit from the Catapres 0.1 mg at bedtime. He has not had hypotension. We discussed this with the patient. He would like to push further if possible and we will increase to 0.2 mg at bedtime daily. We will do this in a couple of days so that I can assess him on Friday. He denies any lightheadedness.
[2017-04-18] MEDS: HYDROCORTISONE 1% CREAM 28.35gm TOP SCH ×3 (11:21→21:44)
[2017-04-18] MEDS: ACETAMINOPHEN 325 MG TABLET PO PRN (14:56)
[2017-04-18] MEDS: TAMSULOSIN 0.4 MG CAPSULE PO SCH (21:44)
[2017-04-19] MEDS: HYDROCORTISONE 1% CREAM 28.35gm TOP SCH ×3 (08:58→21:46)
[2017-04-19] MEDS: LACTOBACILLUS (15B cfu) CAPSULE PO SCH (08:59)
[2017-04-19] MEDS: DOCUSATE SODIUM 100 MG CAPSULE PO SCH ×2 (08:59→21:45)
[2017-04-19] MEDS: APAP/ASA/Caffeine 1 TAB PO PRN (08:59)
[2017-04-19] MEDS: TAMSULOSIN 0.4 MG CAPSULE PO SCH (21:45)
[2017-04-20] MEDS: APAP/ASA/Caffeine 1 TAB PO PRN (07:38)
[2017-04-20] MEDS: HYDROCORTISONE 1% CREAM 28.35gm TOP SCH ×3 (09:00→21:58)
[2017-04-20] MEDS: LACTOBACILLUS (15B cfu) CAPSULE PO SCH (09:01)
[2017-04-20] MEDS: DOCUSATE SODIUM 100 MG CAPSULE PO SCH ×2 (09:01→21:57)
[2017-04-20] MEDS: POLYETHYL GLYCOL 3350 17gm PACKET PO PRN (09:01)
[2017-04-20] MEDS: TAMSULOSIN 0.4 MG CAPSULE PO SCH (21:57)
[2017-04-21] MEDS: LACTOBACILLUS (15B cfu) CAPSULE PO SCH (09:15)
[2017-04-21] MEDS: DOCUSATE SODIUM 100 MG CAPSULE PO SCH ×2 (09:15→21:18)
[2017-04-21] MEDS: HYDROCORTISONE 1% CREAM 28.35gm TOP SCH ×3 (09:15→21:40)
[2017-04-21] MEDS: POLYETHYL GLYCOL 3350 17gm PACKET PO PRN (09:15)
--- NOTE | 2017-04-21 11:24 | IRU Progress Note ---
- Subjective/Serverity of Illness I evaluated Anders in the rehabilitation unit during exercise. He states that he is tolerating exercise well and asked he feels better after he has done exercise. Therapist are working with pinch strength and home agent strength in order to improve ADLs and dressing. He denies any shortness of breath or chest pain. His bowels are moving adequately. We did increase Catapres last night and he has tolerated this well. Blood pressure days 114 systolic. Denies lightheadedness. Exam Vital Signs: Temperature 97.6 F 04/21/17 08:00 Pulse Rate 74 04/21/17 08:00 Respiratory Rate 16 04/21/17 08:00 Blood Pressure 114/65 04/21/17 08:00 Pulse Oximetry 95 04/21/17 08:00 Height/Weight/BMI: Height 1.78 m Weight 83.4 kg Body Mass Index 25.9 Comments: The patient is awake, alert and oriented and in no acute distress. Pupils are equal. The neck is supple. Chest: Clear to auscultation bilaterally. Cor: RR with no gallop, click nor murmur Abd: soft with normo-active bowel sounds. There are no masses, no tenderness and no guarding. Extremities: No edema is noted. Neurologic: All for extremity weakness noted. However he is improving from a functional standpoint. IRU A/P (1) Cervical myelopathy Current visit: Yes Status: Chronic Continues to have substantial muscle weakness but is improving. Therapists are working on home agent strength and pinch strength in order to improve ADLs. (2) Muscle spasticity Current visit: Yes Status: Chronic He is on a higher dose of Catapres at 0.2 mg at at bedtime. Tolerating okay and no evidence of hypotension. (3) Benign essential hypertension Current visit: Yes Status: Chronic (4) Muscle contraction headache Current visit: Yes Status: Chronic DVT Prophylaxis: SCD's, Lovenox Resuscitation Status: Full Code - Course Hospital Course: Biju Aponte MD: 04/01/17 11:32 Patient is just getting started with therapies yesterday and today. So far he is tolerating these well. Blood pressures are variable. We will make sure the tizanidine is provided at the appropriate times. 04/02/17 11:34 He is cooperating well with therapies. Muscle spasm is an issue but he is getting his tizanidine on a more scheduled basis now. Blood pressures are improved. Does complain of muscle contraction headache. 04/04/17 12:19 He is cooperating and improving with therapies. Blood pressures remain variable. Muscle spasm continues to be an issue. 04/07/17 11:46 He would like to try some clonidine. I have researched this and cannot find an indication regarding muscle spasm. Have placed a call to his pain management doctor in [place] to get his opinion. Blood pressures are controlled. Continues to work with therapy. 04/08/17 11:19 He continues to progress with therapies. Awaiting phone call back from his house painter. 04/10/17 14:11 He continues to progress. No new symptoms with regard to his spasm. Pain is adequately controlled. Appetite is good. Bowels are moving. 04/11/17 14:43 Continues to progress with therapies. He would like Chloraseptic for sore throat. There is no fever. We will start Catapres -- please see above discussion. 04/14/17 11:46 Continues to improve with therapies. Tolerating Catapres well. No evidence of hypotension He feels as though the Catapres has reduced his spasms a bit. 04/15/17 10:28 Tolerating Catapres well. No evidence of hypotension. Spasms are improved. 04/16/17 12:24 Anders continues to be very cooperative with therapy and is improving. 04/18/17 10:29 Tolerating Catapres well. Spasms are improved. He is cooperative with therapy and improving. Plan to increase Catapres on Friday evening. 04/21/17 11:23 We increased Catapres last night. Denies lightheadedness today and blood pressures are 114 systolic. Continues to work with therapy and feels better after therapy. - Interventions to Obtain Goals PT Treatment Plan: Balance/Proprioception, Functional Activities, Gait Training , Patient/Family Education, Therapeutic Exercise OT Treatment Plan: ADL (Basic Care), Balance Training, Pt./Family Education, Ther. Exercise for ADL
[2017-04-21] MEDS: TAMSULOSIN 0.4 MG CAPSULE PO SCH (21:19)
[2017-04-22] MEDS: APAP/ASA/Caffeine 1 TAB PO PRN (06:39)
[2017-04-22] MEDS: LACTOBACILLUS (15B cfu) CAPSULE PO SCH (10:19)
[2017-04-22] MEDS: HYDROCORTISONE 1% CREAM 28.35gm TOP SCH ×3 (10:19→23:02)
[2017-04-22] MEDS: DOCUSATE SODIUM 100 MG CAPSULE PO SCH ×2 (10:19→21:56)
--- NOTE | 2017-04-22 11:18 | IRU Progress Note ---
- Subjective/Serverity of Illness Anders was evaluated on the inpatient rehabilitation unit. He reports that his spasms are definitely improved since the increased dose of Catapres. He is now receiving 0.2 mg at at bedtime daily (1 time daily only). Therapy notes reviewed. Has reduced tone and increased core strength. He is very cooperative with therapy and certainly feels better with therapy. Slow progress noted. Team meeting today to discuss further. He denies any lightheadedness. Exam Vital Signs: Temperature 97.9 F 04/22/17 08:00 Pulse Rate 88 04/22/17 08:00 Respiratory Rate 20 04/22/17 08:00 Blood Pressure 145/70 H 04/22/17 08:00 Pulse Oximetry 95 04/22/17 08:00 Height/Weight/BMI: Height 1.78 m Weight 83.4 kg Body Mass Index 25.9 Comments: The patient is awake, alert and oriented and in no acute distress. Pupils are equal. The neck is supple. Chest: Clear to auscultation bilaterally. Cor: RR with no gallop, click nor murmur Abd: soft with normo-active bowel sounds. There are no masses, no tenderness and no guarding. Extremities: No edema is noted. Increased muscle tone slightly improved both upper extremities IRU A/P (1) Cervical myelopathy Current visit: Yes Status: Chronic Muscle tone is improved and increased core strength noted. Team meeting today to discuss further from an interdisciplinary standpoint. (2) Muscle spasticity Current visit: Yes Status: Chronic Anders feels as though the increased dose of Catapres has been of benefit for him. (3) Benign essential hypertension Current visit: Yes Status: Chronic Blood pressures are stable. (4) Muscle contraction headache Current visit: Yes Status: Chronic DVT Prophylaxis: SCD's, Lovenox Resuscitation Status: Full Code - Course Hospital Course: Biju Aponte MD: 04/01/17 11:32 Patient is just getting started with therapies yesterday and today. So far he is tolerating these well. Blood pressures are variable. We will make sure the tizanidine is provided at the appropriate times. 04/02/17 11:34 He is cooperating well with therapies. Muscle spasm is an issue but he is getting his tizanidine on a more scheduled basis now. Blood pressures are improved. Does complain of muscle contraction headache. 04/04/17 12:19 He is cooperating and improving with therapies. Blood pressures remain variable. Muscle spasm continues to be an issue. 04/07/17 11:46 He would like to try some clonidine. I have researched this and cannot find an indication regarding muscle spasm. Have placed a call to his pain management doctor in [place] to get his opinion. Blood pressures are controlled. Continues to work with therapy. 04/08/17 11:19 He continues to progress with therapies. Awaiting phone call back from his toy painter. 04/10/17 14:11 He continues to progress. No new symptoms with regard to his spasm. Pain is adequately controlled. Appetite is good. Bowels are moving. 04/11/17 14:43 Continues to progress with therapies. He would like Chloraseptic for sore throat. There is no fever. We will start Catapres -- please see above discussion. 04/14/17 11:46 Continues to improve with therapies. Tolerating Catapres well. No evidence of hypotension He feels as though the Catapres has reduced his spasms a bit. 04/15/17 10:28 Tolerating Catapres well. No evidence of hypotension. Spasms are improved. 04/16/17 12:24 Anders continues to be very cooperative with therapy and is improving. 04/18/17 10:29 Tolerating Catapres well. Spasms are improved. He is cooperative with therapy and improving. Plan to increase Catapres on Friday evening. 04/21/17 11:23 We increased Catapres last night. Denies lightheadedness today and blood pressures are 114 systolic. Continues to work with therapy and feels better after therapy. 04/22/17 11:18 Reduced spasms per patient. Continue Catapres. Team meeting today. - Interventions to Obtain Goals PT Treatment Plan: Balance/Proprioception, Functional Activities, Gait Training , Patient/Family Education, Therapeutic Exercise OT Treatment Plan: ADL (Basic Care), Balance Training, Pt./Family Education, Ther. Exercise for ADL
--- NOTE | 2017-04-22 13:42 | IRU Team Meeting ---
IRU Team Meeting - Nursing Vital Signs: Vital Signs - 24 hr 04/21/17 16:00 04/21/17 22:08 04/22/17 08:00 Temperature 97.9 F 98.2 F 97.9 F Pulse Rate 77 99 88 Respiratory Rate 18 17 20 Blood Pressure 138/84 131/75 145/70 H Pulse Oximetry 97 96 95 Current Medications: Acetaminophen (Tylenol) 325 - 650 mg PO Q6H PRN PRN Reason: pain Last Admin: 04/18/17 14:56 Dose: 650 mg Acetaminophen/Aspirin/Caffeine (Excedrin Xs) 2 tab PO Q6HR PRN PRN Reason: Headache Last Admin: 04/22/17 06:39 Dose: 2 tab Clonidine HCl (Catapres) 0.2 mg PO [facility] Last Admin: 04/21/17 21:18 Dose: 0.2 mg Docusate Sodium (Colace) 100 mg PO BID [facility] Last Admin: 04/22/17 10:19 Dose: 100 mg Hydrocortisone (Cortizone-10 Cream) 1 applic TOP TID [facility] Last Admin: 04/22/17 10:19 Dose: 1 applic Hydrocortisone (Cortizone-10 Cream) 1 applic TOP TID PRN PRN Reason: redness of face and neck Ibuprofen (Motrin) 200 - 800 mg PO BID PRN PRN Reason: pain Last Admin: 04/01/17 08:46 Dose: 400 mg Lactobacillus Acidophilus (Culturelle) 1 cap PO DAILY [facility] Last Admin: 04/22/17 10:19 Dose: 1 cap Polyethylene Glycol (Miralax) 17 gm PO DAILY PRN Last Admin: 04/21/17 09:15 Dose: 17 gm Tamsulosin HCl (Flomax) 0.4 mg PO [facility] Last Admin: 04/21/17 21:19 Dose: 0.4 mg Throat Lozenges (Chloraseptic [place]) 3 spray PO Q2H PRN PRN Reason: Sore throat Last Admin: 04/12/17 21:46 Dose: 3 spray Tizanidine HCl (Zanaflex) 4 mg PO 0700,1100,1600,2100 [facility] Last Admin: 04/22/17 10:59 Dose: 4 mg Current Medical Issues: Cervical myelopathy, hypertension, spasticity Comments: I certify that I personally led the interdisciplinary team meeting and agree with comments, barriers and goals indicated. Team meeting was held in the patient's room with the patient and the following family members present: Anders's clonidine was recently increased a couple of nights ago to 0.2 mg at at bedtime daily. This was in an effort to help his muscle spasms. The patient believes that this has been of great benefit as does the therapists. Has fewer episodes of severe spasm and is more flexible. His appetite remains good. His bowels are moving. - Physical Therapy Comments: Improvement in tone has been noted since increase in the clonidine and. Does have improved core muscle strength. At this time focuses primarily on strengthening with therapy. He remains maximal assistance for bed/chair/ wheelchair transfers, total assistance for ambulation at 9 feet. - Occupational Therapy Comments: With occupational therapy he continues to make slow gains. Spasms are becoming less frequent. His tone remains a significant factor in gaining independence with functional transfers and dressing. Modified dressing techniques are still being explored to optimize independence with upper and lower body dressing. He is standby assist to supervision level for eating, independent for grooming and minimal assistance for upper body dressing. He requires moderate assistance for lower body dressing and bathing ability. He is maximal assistance for tub transfers and minimal assistance for toileting assistance. - Goals Goals: Toilet hygiene with minimal assistance-has been met. Current goal is toilet transfers with minimal assistance and upper body dressing with minimal assistance. Physical therapy goals from 04/10/2017 include transferring with minimal assistance and pull to tech intern parallel bars as well as increase standing endurance to 10 minutes. He has not met these goals. He is able to stand for approximately 8 minutes however. Currently he is able to ambulate 9 feet. Goal is to ambulate 15 feet with contact guard assistance. The patient has a goal of playing ball with his daughter. - Barriers to Discharge Barriers to Attaining Goals: Weakness, Balance, Endurance, Other (tone) - Care Plan Anticipated DC Destination: Home, Self Care, Home Health Service I have led this team conference and agree with the plan. Anticipated Length of Stay (days): 7
[2017-04-22] MEDS: ACETAMINOPHEN 325 MG TABLET PO PRN (15:12)
[2017-04-22] MEDS: TAMSULOSIN 0.4 MG CAPSULE PO SCH (21:58)
[2017-04-23] MEDS: HYDROCORTISONE 1% CREAM 28.35gm TOP SCH ×3 (08:39→21:11)
[2017-04-23] MEDS: LACTOBACILLUS (15B cfu) CAPSULE PO SCH (08:39)
[2017-04-23] MEDS: DOCUSATE SODIUM 100 MG CAPSULE PO SCH ×2 (08:39→21:07)
--- NOTE | 2017-04-23 10:59 | IRU Progress Note ---
- Subjective/Serverity of Illness Great feels as though he had a good workout yesterday and made some improvement. We discussed the fact that he is gaining in terms of muscle strength but functional improvement is difficult to demonstrate. Denies any bowel or GI problems at present. We discussed several options when he goes home. His is able to come home at noon and assist him. Otherwise he will stay in his lift chair he states. He is unable to transfer independently. He would certainly like to stay longer and work on more improvement. Exam Vital Signs: Temperature 97.7 F 04/23/17 08:00 Pulse Rate 71 04/23/17 08:00 Respiratory Rate 18 04/23/17 08:00 Blood Pressure 145/67 H 04/23/17 08:00 Pulse Oximetry 96 04/23/17 08:00 Height/Weight/BMI: Height 1.78 m Weight 82.1 kg Body Mass Index 25.9 Comments: The patient is awake, alert and oriented and in no acute distress. Pupils are equal. The neck is supple. Chest: Clear to auscultation bilaterally. Cor: RR with no gallop, click nor murmur Abd: soft with normo-active bowel sounds. There are no masses, no tenderness and no guarding. Extremities: No edema is noted. Neurologic: Reduced range of motion again identified and is perhaps improved picture with regard to his neck. Does have increased tone of upper and lower extremities but this is improved as well. IRU A/P (1) Cervical myelopathy Current visit: Yes Status: Chronic Continues to work with therapy and feels better after therapy. Functional gains difficult to demonstrate at present. However motor strength etc. is improved as well as range of motion. Spasms are also improved. (2) Muscle spasticity Current visit: Yes Status: Chronic (3) Benign essential hypertension Current visit: Yes Status: Chronic (4) Muscle contraction headache Current visit: Yes Status: Chronic DVT Prophylaxis: SCD's, Lovenox Resuscitation Status: Full Code - Course Hospital Course: Biju Aponte MD: 04/01/17 11:32 Patient is just getting started with therapies yesterday and today. So far he is tolerating these well. Blood pressures are variable. We will make sure the tizanidine is provided at the appropriate times. 04/02/17 11:34 He is cooperating well with therapies. Muscle spasm is an issue but he is getting his tizanidine on a more scheduled basis now. Blood pressures are improved. Does complain of muscle contraction headache. 04/04/17 12:19 He is cooperating and improving with therapies. Blood pressures remain variable. Muscle spasm continues to be an issue. 04/07/17 11:46 He would like to try some clonidine. I have researched this and cannot find an indication regarding muscle spasm. Have placed a call to his pain management doctor in [place] to get his opinion. Blood pressures are controlled. Continues to work with therapy. 04/08/17 11:19 He continues to progress with therapies. 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 04/10/17 14:11 He continues to progress. No new symptoms with regard to his spasm. Pain is adequately controlled. Appetite is good. Bowels are moving. 04/11/17 14:43 Continues to progress with therapies. He would like Chloraseptic for sore throat. There is no fever. We will start Catapres -- please see above discussion. 04/14/17 11:46 Continues to improve with therapies. Tolerating Catapres well. No evidence of hypotension He feels as though the Catapres has reduced his spasms a bit. 04/15/17 10:28 Tolerating Catapres well. No evidence of hypotension. Spasms are improved. 04/16/17 12:24 Anders continues to be very cooperative with therapy and is improving. 04/18/17 10:29 Tolerating Catapres well. Spasms are improved. He is cooperative with therapy and improving. Plan to increase Catapres on Friday evening. 04/21/17 11:23 We increased Catapres last night. Denies lightheadedness today and blood pressures are 114 systolic. Continues to work with therapy and feels better after therapy. 04/22/17 11:18 Reduced spasms per patient. Continue Catapres. Team meeting today. 04/23/17 10:59 Continue to work with patient. He believes he is making progress. There is improvement with regard to reduced tone, reduced specificity and improve range of motion as well as improved muscle strength. - Interventions to Obtain Goals PT Treatment Plan: Balance/Proprioception, Functional Activities, Gait Training , Patient/Family Education, Therapeutic Exercise OT Treatment Plan: ADL (Basic Care), Balance Training, Pt./Family Education, Ther. Exercise for ADL
[2017-04-23] MEDS: APAP/ASA/Caffeine 1 TAB PO PRN (17:00)
[2017-04-23] MEDS: TAMSULOSIN 0.4 MG CAPSULE PO SCH (21:06)
[2017-04-24] MEDS: APAP/ASA/Caffeine 1 TAB PO PRN (06:45)
[2017-04-24] MEDS: LACTOBACILLUS (15B cfu) CAPSULE PO SCH (08:53)
[2017-04-24] MEDS: HYDROCORTISONE 1% CREAM 28.35gm TOP SCH ×3 (08:53→22:24)
[2017-04-24] MEDS: DOCUSATE SODIUM 100 MG CAPSULE PO SCH ×2 (08:53→22:24)
[2017-04-24] MEDS: TAMSULOSIN 0.4 MG CAPSULE PO SCH (22:24)
[2017-04-24] MEDS: POLYETHYL GLYCOL 3350 17gm PACKET PO PRN (22:30)
[2017-04-25] MEDS: DOCUSATE SODIUM 100 MG CAPSULE PO SCH ×2 (08:57→21:36)
[2017-04-25] MEDS: LACTOBACILLUS (15B cfu) CAPSULE PO SCH (08:57)
[2017-04-25] MEDS: HYDROCORTISONE 1% CREAM 28.35gm TOP SCH ×3 (08:57→21:37)
[2017-04-25] MEDS: APAP/ASA/Caffeine 1 TAB PO PRN ×2 (11:09→20:30)
--- NOTE | 2017-04-25 13:53 | IRU Progress Note ---
- Subjective/Serverity of Illness Anders is working hard with therapy. He reports his appetite is good. Bowels are moving adequately. He has no lightheadedness. His blood pressures are reviewed and are stable despite the use of Catapres 0.2 mg at bedtime daily. He states that the Catapres has been of significant benefit for him with regard to spasms. Exam Vital Signs: Temperature 97.7 F 04/25/17 08:00 Pulse Rate 82 04/25/17 08:00 Respiratory Rate 16 04/25/17 08:00 Blood Pressure 130/76 04/25/17 08:00 Pulse Oximetry 95 04/25/17 08:00 Height/Weight/BMI: Height 1.78 m Weight 82.1 kg Body Mass Index 25.9 Comments: The patient is awake, alert and oriented and in no acute distress. Pupils are equal. The neck is supple. Chest: Clear to auscultation bilaterally. Cor: RR with no gallop, click nor murmur Abd: soft with normo-active bowel sounds. There are no masses, no tenderness and no guarding. Extremities: No edema is noted. Continues to have increased muscle tone in all 4 extremities. IRU A/P (1) Cervical myelopathy Current visit: Yes Status: Chronic According to therapy, he has improved significantly over the past 2-3 days. Specifically, he has reduced pain in the neck and shoulder area and improve range of motion. He has improved significantly in his wheelchair distance up 259 feet with only modified independent level of assistance. Continues to require maximal assistance for transfers. Nevertheless he has significant improved as described. (2) Muscle spasticity Current visit: Yes Status: Chronic Anders indicates that his spasticity has improved and clinically he appears to be more mobile. (3) Benign essential hypertension Current visit: Yes Status: Chronic His blood pressures have remained stable. (4) Muscle contraction headache Current visit: Yes Status: Chronic DVT Prophylaxis: SCD's, Lovenox Resuscitation Status: Full Code - Course Hospital Course: Biju Aponte MD: 04/01/17 11:32 Patient is just getting started with therapies yesterday and today. So far he is tolerating these well. Blood pressures are variable. We will make sure the tizanidine is provided at the appropriate times. 04/02/17 11:34 He is cooperating well with therapies. Muscle spasm is an issue but he is getting his tizanidine on a more scheduled basis now. Blood pressures are improved. Does complain of muscle contraction headache. 04/04/17 12:19 He is cooperating and improving with therapies. Blood pressures remain variable. Muscle spasm continues to be an issue. 04/07/17 11:46 He would like to try some clonidine. I have researched this and cannot find an indication regarding muscle spasm. Have placed a call to his pain management doctor in [place] to get his opinion. Blood pressures are controlled. Continues to work with therapy. 04/08/17 11:19 He continues to progress with therapies. Awaiting phone call back from his depilatory painter. 04/10/17 14:11 He continues to progress. No new symptoms with regard to his spasm. Pain is adequately controlled. Appetite is good. Bowels are moving. 04/11/17 14:43 Continues to progress with therapies. He would like Chloraseptic for sore throat. There is no fever. We will start Catapres -- please see above discussion. 04/14/17 11:46 Continues to improve with therapies. Tolerating Catapres well. No evidence of hypotension He feels as though the Catapres has reduced his spasms a bit. 04/15/17 10:28 Tolerating Catapres well. No evidence of hypotension. Spasms are improved. 04/16/17 12:24 Anders continues to be very cooperative with therapy and is improving. 04/18/17 10:29 Tolerating Catapres well. Spasms are improved. He is cooperative with therapy and improving. Plan to increase Catapres on Friday evening. 04/21/17 11:23 We increased Catapres last night. Denies lightheadedness today and blood pressures are 114 systolic. Continues to work with therapy and feels better after therapy. 04/22/17 11:18 Reduced spasms per patient. Continue Catapres. Team meeting today. 04/23/17 10:59 Continue to work with patient. He believes he is making progress. There is improvement with regard to reduced tone, reduced specificity and improve range of motion as well as improved muscle strength. 04/25/17 13:52 Blood pressures are stable. He has improved with regard to reduced pain in the neck and shoulder area along with improved wheelchair mobility up to 159 feet at modified independent level. - Interventions to Obtain Goals PT Treatment Plan: Balance/Proprioception, Functional Activities, Gait Training , Patient/Family Education, Therapeutic Exercise OT Treatment Plan: ADL (Basic Care), Balance Training, Pt./Family Education, Ther. Exercise for ADL Goals Progress/Modifications: We would like to continue working with the patient as he has made progress particularly over these last 48-72 hours. Please see above description and therapy notes with regard to specifics.
[2017-04-25] MEDS: TAMSULOSIN 0.4 MG CAPSULE PO SCH (21:36)
[2017-04-26] MEDS: DOCUSATE SODIUM 100 MG CAPSULE PO SCH ×2 (09:02→21:35)
[2017-04-26] MEDS: LACTOBACILLUS (15B cfu) CAPSULE PO SCH (09:02)
[2017-04-26] MEDS: POLYETHYL GLYCOL 3350 17gm PACKET PO PRN (09:02)
[2017-04-26] MEDS: HYDROCORTISONE 1% CREAM 28.35gm TOP SCH ×3 (11:06→21:35)
[2017-04-26] MEDS: APAP/ASA/Caffeine 1 TAB PO PRN (21:35)
[2017-04-26] MEDS: TAMSULOSIN 0.4 MG CAPSULE PO SCH (21:35)
[2017-04-27] MEDS: LACTOBACILLUS (15B cfu) CAPSULE PO SCH (09:16)
[2017-04-27] MEDS: HYDROCORTISONE 1% CREAM 28.35gm TOP SCH ×3 (09:16→21:06)
[2017-04-27] MEDS: DOCUSATE SODIUM 100 MG CAPSULE PO SCH ×2 (09:16→21:06)
[2017-04-27] MEDS: ACETAMINOPHEN 325 MG TABLET PO PRN (12:54)
[2017-04-27] MEDS: APAP/ASA/Caffeine 1 TAB PO PRN (20:07)
[2017-04-27] MEDS: TAMSULOSIN 0.4 MG CAPSULE PO SCH (21:06)
[2017-04-28] MEDS: DOCUSATE SODIUM 100 MG CAPSULE PO SCH ×2 (08:19→21:36)
[2017-04-28] MEDS: LACTOBACILLUS (15B cfu) CAPSULE PO SCH (08:19)
[2017-04-28] MEDS: HYDROCORTISONE 1% CREAM 28.35gm TOP SCH ×3 (08:20→21:36)
--- NOTE | 2017-04-28 12:08 | IRU Progress Note ---
- Subjective/Serverity of Illness Saul continues to work with therapy and is making progress with regard to flexibility and reduction in pain. He is able to walk with the parallel bars. His appetite remains good. He is having bowel movements. Denies any dysuria or frequency. His muscle spasms continue to be improved. Review blood pressures fails to reveal evidence of hypotension. Exam Vital Signs: Temperature 97.7 F 04/28/17 09:01 Pulse Rate 70 04/28/17 09:01 Respiratory Rate 18 04/28/17 09:01 Blood Pressure 126/75 04/28/17 09:01 Pulse Oximetry 95 04/28/17 09:01 Height/Weight/BMI: Height 1.78 m Weight 82.1 kg Body Mass Index 25.9 Comments: The patient is awake, alert and oriented and in no acute distress. Pupils are equal. The neck is supple. Chest: Clear to auscultation bilaterally. Cor: RR with no gallop, click nor murmur Abd: soft with normo-active bowel sounds. There are no masses, no tenderness and no guarding. Extremities: No edema is noted. Muscle tone unchanged at present IRU A/P (1) Cervical myelopathy Current visit: Yes Status: Chronic Continues to progress with therapy in terms of flexibility etc. We will continue working with him. (2) Muscle spasticity Current visit: Yes Status: Chronic (3) Benign essential hypertension Current visit: Yes Status: Chronic His blood pressures are stable. (4) Muscle contraction headache Current visit: Yes Status: Chronic DVT Prophylaxis: SCD's, Lovenox Resuscitation Status: Full Code - Course Hospital Course: Biju Aponte MD: 04/01/17 11:32 Patient is just getting started with therapies yesterday and today. So far he is tolerating these well. Blood pressures are variable. We will make sure the tizanidine is provided at the appropriate times. 04/02/17 11:34 He is cooperating well with therapies. Muscle spasm is an issue but he is getting his tizanidine on a more scheduled basis now. Blood pressures are improved. Does complain of muscle contraction headache. 04/04/17 12:19 He is cooperating and improving with therapies. Blood pressures remain variable. Muscle spasm continues to be an issue. 04/07/17 11:46 He would like to try some clonidine. I have researched this and cannot find an indication regarding muscle spasm. Have placed a call to his pain management doctor in [place] to get his opinion. Blood pressures are controlled. Continues to work with therapy. 04/08/17 11:19 He continues to progress with therapies. Awaiting phone call back from his lead painter. 04/10/17 14:11 He continues to progress. No new symptoms with regard to his spasm. Pain is adequately controlled. Appetite is good. Bowels are moving. 04/11/17 14:43 Continues to progress with therapies. He would like Chloraseptic for sore throat. There is no fever. We will start Catapres -- please see above discussion. 04/14/17 11:46 Continues to improve with therapies. Tolerating Catapres well. No evidence of hypotension He feels as though the Catapres has reduced his spasms a bit. 04/15/17 10:28 Tolerating Catapres well. No evidence of hypotension. Spasms are improved. 04/16/17 12:24 Anders continues to be very cooperative with therapy and is improving. 04/18/17 10:29 Tolerating Catapres well. Spasms are improved. He is cooperative with therapy and improving. Plan to increase Catapres on Friday evening. 04/21/17 11:23 We increased Catapres last night. Denies lightheadedness today and blood pressures are 114 systolic. Continues to work with therapy and feels better after therapy. 04/22/17 11:18 Reduced spasms per patient. Continue Catapres. Team meeting today. 04/23/17 10:59 Continue to work with patient. He believes he is making progress. There is improvement with regard to reduced tone, reduced specificity and improve range of motion as well as improved muscle strength. 04/25/17 13:52 Blood pressures are stable. He has improved with regard to reduced pain in the neck and shoulder area along with improved wheelchair mobility up to 159 feet at modified independent level. 04/28/17 12:08 Continue on current medications. He is improving with therapy. - Interventions to Obtain Goals PT Treatment Plan: Balance/Proprioception, Functional Activities, Gait Training , Patient/Family Education, Therapeutic Exercise OT Treatment Plan: ADL (Basic Care), Balance Training, Pt./Family Education, Ther. Exercise for ADL
[2017-04-28] MEDS: TAMSULOSIN 0.4 MG CAPSULE PO SCH (21:36)
[2017-04-28] MEDS: APAP/ASA/Caffeine 1 TAB PO PRN (21:36)
[2017-04-29] MEDS: DOCUSATE SODIUM 100 MG CAPSULE PO SCH ×2 (08:49→20:48)
[2017-04-29] MEDS: LACTOBACILLUS (15B cfu) CAPSULE PO SCH (08:49)
[2017-04-29] MEDS: HYDROCORTISONE 1% CREAM 28.35gm TOP SCH ×3 (08:50→20:49)
--- NOTE | 2017-04-29 11:40 | IRU Progress Note ---
- Subjective/Serverity of Illness Greater than was evaluated in his room on the inpatient rehabilitation unit. He continues to progress with therapy. He reports that his "spasms" are fairly infrequent. One of the therapists did describe one as a decorticate posturing. I asked Anders how long these last and he states they are less than half a minute. He does not have any other neurologic signs. These are triggered by certain positions (and/or ?pain?). Does not have any seizure activity. These are unchanged for a number of years and occurred after his cervical spine injury. Etiology remains obscure. He states that he has had MRIs and CTs of his head in the past. His blood pressures are reviewed and look good. He believes the Catapres has helped these episodes. Exam Vital Signs: Temperature 97.6 F 04/29/17 07:49 Pulse Rate 71 04/29/17 07:49 Respiratory Rate 20 04/29/17 07:49 Blood Pressure 103/56 04/29/17 07:49 Pulse Oximetry 96 04/29/17 07:49 Height/Weight/BMI: Height 1.78 m Weight 82.1 kg Body Mass Index 25.9 Comments: The patient is awake, alert and oriented and in no acute distress. The neck is supple. Chest: Clear to auscultation bilaterally. Cor: RR with no gallop, click nor murmur Extremities: No edema is noted. More flexibility noted. Muscle tone otherwise is unchanged. IRU A/P (1) Cervical myelopathy Current visit: Yes Status: Chronic He is progressing with therapy in terms of flexibility and reduction in muscle tone. Please see therapy notes otherwise. (2) Muscle spasticity Current visit: Yes Status: Chronic Initially was under the impression these muscle spasticity episodes were consistent with diffuse muscle spasms due to the cervical myelopathy. However, he appears to have almost decorticate posturing with the right arm being drawn up and the back stiffening. Etiology of this is not clear. He states he has had previous MRIs and CTs of his head. If these worsen we will pursue but at the present time we will continue therapy and recommend further evaluation as an outpatient. (3) Benign essential hypertension Current visit: Yes Status: Chronic Blood pressures are looking good. (4) Muscle contraction headache Current visit: Yes Status: Chronic DVT Prophylaxis: SCD's, Lovenox Resuscitation Status: Full Code - Course Hospital Course: Biju Aponte MD: 04/01/17 11:32 Patient is just getting started with therapies yesterday and today. So far he is tolerating these well. Blood pressures are variable. We will make sure the tizanidine is provided at the appropriate times. 04/02/17 11:34 He is cooperating well with therapies. Muscle spasm is an issue but he is getting his tizanidine on a more scheduled basis now. Blood pressures are improved. Does complain of muscle contraction headache. 04/04/17 12:19 He is cooperating and improving with therapies. Blood pressures remain variable. Muscle spasm continues to be an issue. 04/07/17 11:46 He would like to try some clonidine. I have researched this and cannot find an indication regarding muscle spasm. Have placed a call to his pain management doctor in [place] to get his opinion. Blood pressures are controlled. Continues to work with therapy. 04/08/17 11:19 He continues to progress with therapies. Awaiting phone call back from his painter [place] [employer]. 04/10/17 14:11 He continues to progress. No new symptoms with regard to his spasm. Pain is adequately controlled. Appetite is good. Bowels are moving. 04/11/17 14:43 Continues to progress with therapies. He would like Chloraseptic for sore throat. There is no fever. We will start Catapres -- please see above discussion. 04/14/17 11:46 Continues to improve with therapies. Tolerating Catapres well. No evidence of hypotension He feels as though the Catapres has reduced his spasms a bit. 04/15/17 10:28 Tolerating Catapres well. No evidence of hypotension. Spasms are improved. 04/16/17 12:24 Anders continues to be very cooperative with therapy and is improving. 04/18/17 10:29 Tolerating Catapres well. Spasms are improved. He is cooperative with therapy and improving. Plan to increase Catapres on Friday evening. 04/21/17 11:23 We increased Catapres last night. Denies lightheadedness today and blood pressures are 114 systolic. Continues to work with therapy and feels better after therapy. 04/22/17 11:18 Reduced spasms per patient. Continue Catapres. Team meeting today. 04/23/17 10:59 Continue to work with patient. He believes he is making progress. There is improvement with regard to reduced tone, reduced specificity and improve range of motion as well as improved muscle strength. 04/25/17 13:52 Blood pressures are stable. He has improved with regard to reduced pain in the neck and shoulder area along with improved wheelchair mobility up to 159 feet at modified independent level. 04/28/17 12:08 Continue on current medications. He is improving with therapy. 04/29/17 11:40 Continues to tolerate and improve with therapy. May have what appears to be decorticate posturing although I have not personally evaluated or seen this. - Interventions to Obtain Goals PT Treatment Plan: Balance/Proprioception, Functional Activities, Gait Training , Patient/Family Education, Therapeutic Exercise OT Treatment Plan: ADL (Basic Care), Balance Training, Pt./Family Education, Ther. Exercise for ADL
--- NOTE | 2017-04-29 13:30 | IRU Team Meeting ---
IRU Team Meeting - Nursing Vital Signs: Vital Signs - 24 hr 04/28/17 16:00 04/28/17 22:39 04/29/17 07:49 Temperature 98.2 F 98.3 F 97.6 F Pulse Rate 95 90 71 Respiratory Rate 16 21 20 Blood Pressure 143/75 H 157/84 H 103/56 Pulse Oximetry 96 94 96 Current Medications: Acetaminophen (Tylenol) 325 - 650 mg PO Q6H PRN PRN Reason: pain Last Admin: 04/27/17 12:54 Dose: 650 mg Acetaminophen/Aspirin/Caffeine (Excedrin Xs) 2 tab PO Q6HR PRN PRN Reason: Headache Last Admin: 04/28/17 21:36 Dose: 2 tab Clonidine HCl (Catapres) 0.[address] [facility] Last Admin: 04/28/17 21:36 Dose: 0.2 mg Docusate Sodium (Colace) 100 mg PO BID [facility] Last Admin: 04/29/17 08:49 Dose: 100 mg Hydrocortisone (Cortizone-10 Cream) 1 applic TOP TID [facility] Last Admin: 04/29/17 08:50 Dose: Not Given Hydrocortisone (Cortizone-10 Cream) 1 applic TOP TID PRN PRN Reason: redness of face and neck Ibuprofen (Motrin) 200 - 800 mg PO BID PRN PRN Reason: pain Last Admin: 04/01/17 08:46 Dose: 400 mg Lactobacillus Acidophilus (Culturelle) 1 cap PO DAILY [facility] Last Admin: 04/29/17 08:49 Dose: 1 cap Polyethylene Glycol (Miralax) 17 gm PO DAILY PRN Last Admin: 04/26/17 09:02 Dose: 17 gm Tamsulosin HCl (Flomax) 0.[address] [facility] Last Admin: 04/28/17 21:36 Dose: 0.4 mg Throat Lozenges (Chloraseptic [place]) 3 spray PO Q2H PRN PRN Reason: Sore throat Last Admin: 04/12/17 21:46 Dose: 3 spray Tizanidine HCl (Zanaflex) 4 mg PO 0700,1100,1600,2100 [facility] Last Admin: 04/29/17 11:10 Dose: 4 mg Current Medical Issues: sudden muscle spasms/posturing, hypertension Comments: I certify that I personally led the interdisciplinary team meeting and agree with comments, barriers and goals indicated. Team meeting was held in the patient's room with the patient and the following family members present: patient's Anders is doing well medically. His blood pressures have been well controlled. His spasms are improved with the use of Catapres. His bowels are moving adequately and his appetite is good. There have been no episodes of lightheadedness/presyncope. Recent blood tests have not been obtained because he is otherwise healthy. - Physical Therapy Comments: Patient remains maximal assistance of 1 person for bed/chair/wheelchair transfers. He is total assistance of 1 person for ambulating 15 feet. However today he was able to ambulate 25 feet at contact guard assistance level. New goal is to be able to ambulate 30 feet with a walker. He is able to self propel in a wheelchair 150 feet. He is not safe to climb stairs nor perform car transfers. He does demonstrate progress toward his goals for gait with increased distance. He is also able to progress to front-wheeled walker with right forearm platform for the first time today. Continues to have abnormal tone and spasticity limiting his mobility. Neuromuscular reeducation is requiring decreased effort and less time. Pain continues to increase with activity but patient feels this is not a limiting factor for his activity. - Occupational Therapy Comments: Anders is functioning at modified independent level of functioning for eating, minimal assistance for grooming, moderate assistance for upper body dressing and maximum assistance for lower body dressing. He is minimal assistance for bathing but maximum assistance for tub transfers, toileting assist and toilet transfers. He is making slow progress toward occupational therapy goals. There is some variability from day to day with his assist levels due to spasticity and muscle spasms. - Goals New goals: 1. Perform bed mobility at moderate assistance 2. Ambulate 30 feet with contact-guard assistance with platform walker - Barriers to Discharge Barriers to Attaining Goals: Weakness, Balance, Endurance, Other (muscle tone) - Care Plan Anticipated DC Destination: Home, Self Care I have led this team conference and agree with the plan. Anticipated Length of Stay: Reassess in one week
[2017-04-29] MEDS: ACETAMINOPHEN 325 MG TABLET PO PRN (18:38)
[2017-04-29] MEDS: TAMSULOSIN 0.4 MG CAPSULE PO SCH (20:48)
[2017-04-29] MEDS: IBUPROFEN 200 MG TABLET PO PRN ×2 (20:48→20:52)
[2017-04-30] MEDS: DOCUSATE SODIUM 100 MG CAPSULE PO SCH ×2 (08:27→20:13)
[2017-04-30] MEDS: LACTOBACILLUS (15B cfu) CAPSULE PO SCH (08:27)
--- NOTE | 2017-04-30 10:51 | IRU Progress Note ---
- Subjective/Serverity of Illness Anders continues to be extremely cooperative with therapy and is making progress. He is able to ambulate further. Continues to have reduced range of motion of the neck but seems to be more flexible. His blood pressures are reviewed and are running if anything a bit high despite the Catapres. Exam Vital Signs: Temperature 97.7 F 04/30/17 08:00 Pulse Rate 76 04/30/17 08:00 Respiratory Rate 18 04/30/17 08:00 Blood Pressure 124/65 04/30/17 08:00 Pulse Oximetry 94 04/30/17 08:00 Height/Weight/BMI: Height 1.78 m Weight 82.1 kg Body Mass Index 25.9 Comments: The patient is awake, alert and oriented and in no acute distress. The neck is supple. Chest: Clear to auscultation bilaterally. Cor: RR with no gallop, click nor murmur Extremities: No edema is noted. Neurologic exam is unchanged.. IRU A/P (1) Cervical myelopathy Current visit: Yes Status: Chronic Continues to have occasional spasms typically more than once daily if he isn't certain positions. However these are mild and brief. Did not have the decorticate posturing per therapy. Continues to improve with therapy. (2) Muscle spasticity Current visit: Yes Status: Chronic (3) Benign essential hypertension Current visit: Yes Status: Chronic (4) Muscle contraction headache Current visit: Yes Status: Chronic DVT Prophylaxis: SCD's, Lovenox Resuscitation Status: Full Code - Course Hospital Course: Biju Aponte MD: 04/01/17 11:32 Patient is just getting started with therapies yesterday and today. So far he is tolerating these well. Blood pressures are variable. We will make sure the tizanidine is provided at the appropriate times. 04/02/17 11:34 He is cooperating well with therapies. Muscle spasm is an issue but he is getting his tizanidine on a more scheduled basis now. Blood pressures are improved. Does complain of muscle contraction headache. 04/04/17 12:19 He is cooperating and improving with therapies. Blood pressures remain variable. Muscle spasm continues to be an issue. 04/07/17 11:46 He would like to try some clonidine. I have researched this and cannot find an indication regarding muscle spasm. Have placed a call to his pain management doctor in [place] to get his opinion. Blood pressures are controlled. Continues to work with therapy. 04/08/17 11:19 He continues to progress with therapies. Awaiting phone call back from his pain medicine physician. 04/10/17 14:11 He continues to progress. No new symptoms with regard to his spasm. Pain is adequately controlled. Appetite is good. Bowels are moving. 04/11/17 14:43 Continues to progress with therapies. He would like Chloraseptic for sore throat. There is no fever. We will start Catapres -- please see above discussion. 04/14/17 11:46 Continues to improve with therapies. Tolerating Catapres well. No evidence of hypotension He feels as though the Catapres has reduced his spasms a bit. 04/15/17 10:28 Tolerating Catapres well. No evidence of hypotension. Spasms are improved. 04/16/17 12:24 Anders continues to be very cooperative with therapy and is improving. 04/18/17 10:29 Tolerating Catapres well. Spasms are improved. He is cooperative with therapy and improving. Plan to increase Catapres on Friday evening. 04/21/17 11:23 We increased Catapres last night. Denies lightheadedness today and blood pressures are 114 systolic. Continues to work with therapy and feels better after therapy. 04/22/17 11:18 Reduced spasms per patient. Continue Catapres. Team meeting today. 04/23/17 10:59 Continue to work with patient. He believes he is making progress. There is improvement with regard to reduced tone, reduced specificity and improve range of motion as well as improved muscle strength. 04/25/17 13:52 Blood pressures are stable. He has improved with regard to reduced pain in the neck and shoulder area along with improved wheelchair mobility up to 159 feet at modified independent level. 04/28/17 12:08 Continue on current medications. He is improving with therapy. 04/29/17 11:40 Continues to tolerate and improve with therapy. May have what appears to be decorticate posturing although I have not personally evaluated or seen this. 04/30/17 10:51 He is walking better. Tolerating Catapres well. - Interventions to Obtain Goals PT Treatment Plan: Balance/Proprioception, Functional Activities, Gait Training , Patient/Family Education, Therapeutic Exercise OT Treatment Plan: ADL (Basic Care), Balance Training, Pt./Family Education, Ther. Exercise for ADL
[2017-04-30] MEDS: HYDROCORTISONE 1% CREAM 28.35gm TOP SCH ×3 (11:12→20:13)
[2017-04-30] MEDS: TAMSULOSIN 0.4 MG CAPSULE PO SCH (20:13)
[2017-04-30] MEDS: IBUPROFEN 200 MG TABLET PO PRN (20:17)
[2017-05-01] MEDS: APAP/ASA/Caffeine 1 TAB PO PRN (03:48)
[2017-05-01] MEDS: LACTOBACILLUS (15B cfu) CAPSULE PO SCH (09:04)
[2017-05-01] MEDS: DOCUSATE SODIUM 100 MG CAPSULE PO SCH ×2 (09:04→21:40)
[2017-05-01] MEDS: HYDROCORTISONE 1% CREAM 28.35gm TOP SCH ×3 (09:04→21:41)
--- NOTE | 2017-05-01 11:42 | IRU Progress Note ---
- Subjective/Serverity of Illness Anders is continuing to improve. He has not walked this far for over a year he states. After therapy she feels much better. Increased muscle tone still identified. Still has occasional spasms typically at least once per day and certain positions. He thinks it may be worse if he has not been as active at nighttime. Exam Vital Signs: Temperature 97.8 F 05/01/17 08:00 Pulse Rate 70 05/01/17 08:00 Respiratory Rate 16 05/01/17 08:00 Blood Pressure 113/68 05/01/17 08:00 Pulse Oximetry 96 05/01/17 08:00 Height/Weight/BMI: Height 1.78 m Weight 82.1 kg Body Mass Index 25.9 Comments: The patient is awake, alert and oriented and in no acute distress. Pupils are equal. The neck is supple. Chest: Clear to auscultation bilaterally. Cor: RR with no gallop, click nor murmur Abd: soft with normo-active bowel sounds. There are no masses, no tenderness and no guarding. Extremities: No edema is noted. IRU A/P (1) Cervical myelopathy Current visit: Yes Status: Chronic He is making significant progress with therapy and he is excited about this. (2) Muscle spasticity Current visit: Yes Status: Chronic (3) Benign essential hypertension Current visit: Yes Status: Chronic (4) Muscle contraction headache Current visit: Yes Status: Chronic DVT Prophylaxis: SCD's, Lovenox Resuscitation Status: Full Code - Course Hospital Course: Biju Aponte MD: 04/01/17 11:32 Patient is just getting started with therapies yesterday and today. So far he is tolerating these well. Blood pressures are variable. We will make sure the tizanidine is provided at the appropriate times. 04/02/17 11:34 He is cooperating well with therapies. Muscle spasm is an issue but he is getting his tizanidine on a more scheduled basis now. Blood pressures are improved. Does complain of muscle contraction headache. 04/04/17 12:19 He is cooperating and improving with therapies. Blood pressures remain variable. Muscle spasm continues to be an issue. 04/07/17 11:46 He would like to try some clonidine. I have researched this and cannot find an indication regarding muscle spasm. Have placed a call to his pain management doctor in [place] to get his opinion. Blood pressures are controlled. Continues to work with therapy. 04/08/17 11:19 He continues to progress with therapies. Awaiting phone call back from his painter maintenance. 04/10/17 14:11 He continues to progress. No new symptoms with regard to his spasm. Pain is adequately controlled. Appetite is good. Bowels are moving. 04/11/17 14:43 Continues to progress with therapies. He would like Chloraseptic for sore throat. There is no fever. We will start Catapres -- please see above discussion. 04/14/17 11:46 Continues to improve with therapies. Tolerating Catapres well. No evidence of hypotension He feels as though the Catapres has reduced his spasms a bit. 04/15/17 10:28 Tolerating Catapres well. No evidence of hypotension. Spasms are improved. 04/16/17 12:24 Anders continues to be very cooperative with therapy and is improving. 04/18/17 10:29 Tolerating Catapres well. Spasms are improved. He is cooperative with therapy and improving. Plan to increase Catapres on Friday evening. 04/21/17 11:23 We increased Catapres last night. Denies lightheadedness today and blood pressures are 114 systolic. Continues to work with therapy and feels better after therapy. 04/22/17 11:18 Reduced spasms per patient. Continue Catapres. Team meeting today. 04/23/17 10:59 Continue to work with patient. He believes he is making progress. There is improvement with regard to reduced tone, reduced specificity and improve range of motion as well as improved muscle strength. 04/25/17 13:52 Blood pressures are stable. He has improved with regard to reduced pain in the neck and shoulder area along with improved wheelchair mobility up to 159 feet at modified independent level. 04/28/17 12:08 Continue on current medications. He is improving with therapy. 04/29/17 11:40 Continues to tolerate and improve with therapy. May have what appears to be decorticate posturing although I have not personally evaluated or seen this. 04/30/17 10:51 He is walking better. Tolerating Catapres well. - Interventions to Obtain Goals PT Treatment Plan: Balance/Proprioception, Functional Activities, Gait Training , Patient/Family Education, Therapeutic Exercise OT Treatment Plan: ADL (Basic Care), Balance Training, Pt./Family Education, Ther. Exercise for ADL
[2017-05-01] MEDS: IBUPROFEN 200 MG TABLET PO PRN (21:39)
[2017-05-01] MEDS: TAMSULOSIN 0.4 MG CAPSULE PO SCH (21:40)
[2017-05-02] MEDS: APAP/ASA/Caffeine 1 TAB PO PRN (08:48)
[2017-05-02] MEDS: LACTOBACILLUS (15B cfu) CAPSULE PO SCH (08:49)
[2017-05-02] MEDS: DOCUSATE SODIUM 100 MG CAPSULE PO SCH ×2 (08:49→21:35)
[2017-05-02] MEDS: HYDROCORTISONE 1% CREAM 28.35gm TOP SCH ×3 (08:50→21:35)
[2017-05-02] MEDS: TAMSULOSIN 0.4 MG CAPSULE PO SCH (21:35)
[2017-05-02] MEDS: IBUPROFEN 200 MG TABLET PO PRN (21:46)
[2017-05-03] MEDS: APAP/ASA/Caffeine 1 TAB PO PRN (09:00)
[2017-05-03] MEDS: POLYETHYL GLYCOL 3350 17gm PACKET PO PRN (09:01)
[2017-05-03] MEDS: DOCUSATE SODIUM 100 MG CAPSULE PO SCH ×2 (09:01→22:55)
[2017-05-03] MEDS: LACTOBACILLUS (15B cfu) CAPSULE PO SCH (09:01)
[2017-05-03] MEDS: HYDROCORTISONE 1% CREAM 28.35gm TOP SCH ×3 (09:02→22:55)
[2017-05-03] MEDS: IBUPROFEN 200 MG TABLET PO PRN (16:29)
[2017-05-03] MEDS: TAMSULOSIN 0.4 MG CAPSULE PO SCH (22:54)
[2017-05-04] MEDS: DOCUSATE SODIUM 100 MG CAPSULE PO SCH ×2 (08:54→22:09)
[2017-05-04] MEDS: LACTOBACILLUS (15B cfu) CAPSULE PO SCH (08:55)
[2017-05-04] MEDS: HYDROCORTISONE 1% CREAM 28.35gm TOP SCH ×3 (08:55→22:10)
[2017-05-04] MEDS: APAP/ASA/Caffeine 1 TAB PO PRN (14:26)
[2017-05-04] MEDS: IBUPROFEN 200 MG TABLET PO PRN (22:08)
[2017-05-04] MEDS: TAMSULOSIN 0.4 MG CAPSULE PO SCH (22:10)
[2017-05-05] MEDS: LACTOBACILLUS (15B cfu) CAPSULE PO SCH (08:40)
[2017-05-05] MEDS: HYDROCORTISONE 1% CREAM 28.35gm TOP SCH ×3 (08:40→21:09)
[2017-05-05] MEDS: DOCUSATE SODIUM 100 MG CAPSULE PO SCH ×2 (08:40→21:08)
[2017-05-05] MEDS: POLYETHYL GLYCOL 3350 17gm PACKET PO PRN (10:00)
--- NOTE | 2017-05-05 11:58 | IRU Progress Note ---
- Subjective/Serverity of Illness Anders was evaluated in his room on rehabilitation. He continues to find a great benefit from therapy. His ambulatory distance is improved. He denies any neck pain at present. He denies any nausea, vomiting or bowel problems. He reports that he has no dyspnea with activity. Exam Vital Signs: Temperature 97.6 F 05/05/17 08:00 Pulse Rate 75 05/05/17 08:00 Respiratory Rate 18 05/05/17 08:00 Blood Pressure 109/63 05/05/17 08:00 Pulse Oximetry 94 05/05/17 08:00 Height/Weight/BMI: Height 1.78 m Weight 82.1 kg Body Mass Index 25.9 Comments: The patient is awake, alert and oriented and in no acute distress. Pupils are equal. The neck is supple. Chest: Clear to auscultation bilaterally. Cor: RR with no gallop, click nor murmur Abd: soft with normo-active bowel sounds. There are no masses, no tenderness and no guarding. Extremities: Muscle tone unchanged. IRU A/P (1) Cervical myelopathy Current visit: Yes Status: Chronic Continues to improve with therapy both with regard to range of motion, as well as strength and transfers and ambulatory ability. (2) Muscle spasticity Current visit: Yes Status: Chronic (3) Benign essential hypertension Current visit: Yes Status: Chronic (4) Muscle contraction headache Current visit: Yes Status: Chronic DVT Prophylaxis: SCD's, Lovenox Resuscitation Status: Full Code - Course Hospital Course: Biju Aponte MD: 04/01/17 11:32 Patient is just getting started with therapies yesterday and today. So far he is tolerating these well. Blood pressures are variable. We will make sure the tizanidine is provided at the appropriate times. 04/02/17 11:34 He is cooperating well with therapies. Muscle spasm is an issue but he is getting his tizanidine on a more scheduled basis now. Blood pressures are improved. Does complain of muscle contraction headache. 04/04/17 12:19 He is cooperating and improving with therapies. Blood pressures remain variable. Muscle spasm continues to be an issue. 04/07/17 11:46 He would like to try some clonidine. I have researched this and cannot find an indication regarding muscle spasm. Have placed a call to his pain management doctor in [place] to get his opinion. Blood pressures are controlled. Continues to work with therapy. 04/08/17 11:19 He continues to progress with therapies. Awaiting phone call back from his apprentice painter hand. 04/10/17 14:11 He continues to progress. No new symptoms with regard to his spasm. Pain is adequately controlled. Appetite is good. Bowels are moving. 04/11/17 14:43 Continues to progress with therapies. He would like Chloraseptic for sore throat. There is no fever. We will start Catapres -- please see above discussion. 04/14/17 11:46 Continues to improve with therapies. Tolerating Catapres well. No evidence of hypotension He feels as though the Catapres has reduced his spasms a bit. 04/15/17 10:28 Tolerating Catapres well. No evidence of hypotension. Spasms are improved. 04/16/17 12:24 Anders continues to be very cooperative with therapy and is improving. 04/18/17 10:29 Tolerating Catapres well. Spasms are improved. He is cooperative with therapy and improving. Plan to increase Catapres on Friday evening. 04/21/17 11:23 We increased Catapres last night. Denies lightheadedness today and blood pressures are 114 systolic. Continues to work with therapy and feels better after therapy. 04/22/17 11:18 Reduced spasms per patient. Continue Catapres. Team meeting today. 04/23/17 10:59 Continue to work with patient. He believes he is making progress. There is improvement with regard to reduced tone, reduced specificity and improve range of motion as well as improved muscle strength. 04/25/17 13:52 Blood pressures are stable. He has improved with regard to reduced pain in the neck and shoulder area along with improved wheelchair mobility up to 159 feet at modified independent level. 04/28/17 12:08 Continue on current medications. He is improving with therapy. 04/29/17 11:40 Continues to tolerate and improve with therapy. May have what appears to be decorticate posturing although I have not personally evaluated or seen this. 04/30/17 10:51 He is walking better. Tolerating Catapres well. 05/05/17 11:57 No change at present. Continues to tolerate Catapres well. He is improving with therapy. - Interventions to Obtain Goals PT Treatment Plan: Balance/Proprioception, Functional Activities, Gait Training , Patient/Family Education, Therapeutic Exercise OT Treatment Plan: ADL (Basic Care), Balance Training, Pt./Family Education, Ther. Exercise for ADL
[2017-05-05] MEDS: TAMSULOSIN 0.4 MG CAPSULE PO SCH (21:08)
[2017-05-05] MEDS: IBUPROFEN 200 MG TABLET PO PRN (21:12)
[2017-05-06] MEDS: APAP/ASA/Caffeine 1 TAB PO PRN ×2 (04:41→23:21)
[2017-05-06] MEDS: HYDROCORTISONE 1% CREAM 28.35gm TOP SCH ×3 (09:03→22:29)
[2017-05-06] MEDS: LACTOBACILLUS (15B cfu) CAPSULE PO SCH (09:22)
[2017-05-06] MEDS: DOCUSATE SODIUM 100 MG CAPSULE PO SCH ×2 (09:23→22:31)
--- NOTE | 2017-05-06 11:50 | IRU Progress Note ---
- Subjective/Serverity of Illness Anders was switched from a platform walker to a regular walker which he has at home. We are encouraging him to walk to the dining area with assistance. We had a long discussion today about when he goes home and the amount of activity he will be able to perform. I shared with him that I was concerned that he would lose some grounds that he is made here if he does not remain active at home. He is aware of this. He indicates that he will continue to try to work hard at home as well. Exam Vital Signs: Temperature 97.6 F 05/06/17 08:00 Pulse Rate 75 05/06/17 08:00 Respiratory Rate 18 05/06/17 08:00 Blood Pressure 122/69 05/06/17 08:00 Pulse Oximetry 96 05/06/17 08:00 Height/Weight/BMI: Height 1.78 m Weight 82.1 kg Body Mass Index 25.9 Comments: The patient is awake, alert and oriented and in no acute distress. Pupils are equal. The neck is supple. Chest: Clear to auscultation bilaterally. Cor: RR with no gallop, click nor murmur Abd: soft with normo-active bowel sounds. There are no masses, no tenderness and no guarding. Extremities: No edema is noted. Muscle tone unchanged. IRU A/P (1) Cervical myelopathy Current visit: Yes Status: Chronic Anders continues to make progress. He is switched over from platform walker to regular walker. (2) Muscle spasticity Current visit: Yes Status: Chronic (3) Benign essential hypertension Current visit: Yes Status: Chronic Blood pressures remain stable. (4) Muscle contraction headache Current visit: Yes Status: Chronic Continues to have muscle contraction headaches for which she takes Excedrin with benefit. He is on no narcotics. DVT Prophylaxis: SCD's, Lovenox Resuscitation Status: Full Code - Course Hospital Course: Biju Aponte MD: 04/01/17 11:32 Patient is just getting started with therapies yesterday and today. So far he is tolerating these well. Blood pressures are variable. We will make sure the tizanidine is provided at the appropriate times. 04/02/17 11:34 He is cooperating well with therapies. Muscle spasm is an issue but he is getting his tizanidine on a more scheduled basis now. Blood pressures are improved. Does complain of muscle contraction headache. 04/04/17 12:19 He is cooperating and improving with therapies. Blood pressures remain variable. Muscle spasm continues to be an issue. 04/07/17 11:46 He would like to try some clonidine. I have researched this and cannot find an indication regarding muscle spasm. Have placed a call to his pain management doctor in [place] to get his opinion. Blood pressures are controlled. Continues to work with therapy. 04/08/17 11:19 He continues to progress with therapies. Awaiting phone call back from his painter railroad car. 04/10/17 14:11 He continues to progress. No new symptoms with regard to his spasm. Pain is adequately controlled. Appetite is good. Bowels are moving. 04/11/17 14:43 Continues to progress with therapies. He would like Chloraseptic for sore throat. There is no fever. We will start Catapres -- please see above discussion. 04/14/17 11:46 Continues to improve with therapies. Tolerating Catapres well. No evidence of hypotension He feels as though the Catapres has reduced his spasms a bit. 04/15/17 10:28 Tolerating Catapres well. No evidence of hypotension. Spasms are improved. 04/16/17 12:24 Anders continues to be very cooperative with therapy and is improving. 04/18/17 10:29 Tolerating Catapres well. Spasms are improved. He is cooperative with therapy and improving. Plan to increase Catapres on Friday evening. 04/21/17 11:23 We increased Catapres last night. Denies lightheadedness today and blood pressures are 114 systolic. Continues to work with therapy and feels better after therapy. 04/22/17 11:18 Reduced spasms per patient. Continue Catapres. Team meeting today. 04/23/17 10:59 Continue to work with patient. He believes he is making progress. There is improvement with regard to reduced tone, reduced specificity and improve range of motion as well as improved muscle strength. 04/25/17 13:52 Blood pressures are stable. He has improved with regard to reduced pain in the neck and shoulder area along with improved wheelchair mobility up to 159 feet at modified independent level. 04/28/17 12:08 Continue on current medications. He is improving with therapy. 04/29/17 11:40 Continues to tolerate and improve with therapy. May have what appears to be decorticate posturing although I have not personally evaluated or seen this. 04/30/17 10:51 He is walking better. Tolerating Catapres well. 05/05/17 11:57 No change at present. Continues to tolerate Catapres well. He is improving with therapy. 05/06/17 11:49 Switched from platform walker to regular walker. Occasional headaches as before. - Interventions to Obtain Goals PT Treatment Plan: Balance/Proprioception, Functional Activities, Gait Training , Patient/Family Education, Therapeutic Exercise OT Treatment Plan: ADL (Basic Care), Balance Training, Pt./Family Education, Ther. Exercise for ADL
--- NOTE | 2017-05-06 13:24 | IRU Team Meeting ---
IRU Team Meeting - Nursing Bladder Assistive Devices Utilized:: Urinal, Absorbent Pad Bladder Management Level of Assist: Modified Independent Bladder Frequency of Accidents: No accidents Bowel Assistive Devices Utilized:: Medication, Absorbent Pad Bowel Management Level of Assist: Modified Independent Bowel Frequency of Accidents: No accidents Vital Signs: Vital Signs - 24 hr 05/05/17 16:00 05/05/17 22:18 05/06/17 08:00 Temperature 97.8 F 97.9 F 97.6 F Pulse Rate 77 78 75 Respiratory Rate 16 18 18 Blood Pressure 125/71 154/76 H 122/69 Pulse Oximetry 96 97 96 Current Medications: Acetaminophen (Tylenol) 325 - 650 mg PO Q6H PRN PRN Reason: pain Last Admin: 04/29/17 18:38 Dose: 650 mg Acetaminophen/Aspirin/Caffeine (Excedrin Xs) 2 tab PO Q6HR PRN PRN Reason: Headache Last Admin: 05/06/17 04:41 Dose: 2 tab Clonidine HCl (Catapres) 0.2 mg PO [facility] Last Admin: 05/05/17 21:08 Dose: 0.2 mg Docusate Sodium (Colace) 100 mg PO BID [facility] Last Admin: 05/06/17 09:23 Dose: 100 mg Hydrocortisone (Cortizone-10 Cream) 1 applic TOP TID [facility] Last Admin: 05/06/17 09:03 Dose: Not Given Hydrocortisone (Cortizone-10 Cream) 1 applic TOP TID PRN PRN Reason: redness of face and neck Ibuprofen (Motrin) 200 - 800 mg PO BID PRN PRN Reason: pain Last Admin: 05/05/17 21:12 Dose: 800 mg Lactobacillus Acidophilus (Culturelle) 1 cap PO DAILY [facility] Last Admin: 05/06/17 09:22 Dose: 1 cap Polyethylene Glycol (Miralax) 17 gm PO DAILY PRN Last Admin: 05/05/17 10:00 Dose: 17 gm Tamsulosin HCl (Flomax) 0.4 mg PO [facility] Last Admin: 05/05/17 21:08 Dose: 0.4 mg Throat Lozenges (Chloraseptic [place]) 3 spray PO Q2H PRN PRN Reason: Sore throat Last Admin: 04/12/17 21:46 Dose: 3 spray Tizanidine HCl (Zanaflex) 4 mg PO 0700,1100,1600,2100 [facility] Last Admin: 05/06/17 11:21 Dose: 4 mg Current Medical Issues: Hypertension, muscle weakness Comments: I certify that I personally led the interdisciplinary team meeting and agree with comments, barriers and goals indicated. Team meeting was held in the patient's room with the patient and the following family members present: Anders' s Anders continues to tolerate Catapres without difficulty. His blood pressures have not been low. They have been adequately controlled. Change to have occasional spasms but overall he is stable. His appetite is good. - Physical Therapy Bed, Chair, Wheelchair Transfer Assist: Maximal Assistance, 1 Person Assist Ambulation Ability: Stand By Assist/Supervision Ambulation Distance: 62 Wheelchair Propulsion Ability: Stand By Assist/Supervision, 1 Person Assist Wheelchair Propulsion Distance: 80 Stair Climbing Ability: Patient Unsafe/Unable Car Transfer Ability: Maximal Assistance, 1 Person Assist Comments: Anders has transitioned from a platform walker to a regular front-wheeled walker and is doing well ambulating, once he gets up and gets going. He is able to ambulate 62 feet. The main barrier to overcome is transfers from sit to stand and stand to sit. Nevertheless he has made progress in the last week. About a week ago he was maximal assistance for these transfers and over the last several days he has been moderate assistance on two days. The most recent recording on May 05 noted that he was back to maximal assist. Nevertheless we do see some improvement. He does have a lift chair at home. is present today and provided additional input. - Occupational Therapy Eating Ability: Modified Independent Grooming Ability: Modified Independent Bathing Ability: Minimal Assistance Upper Body Dressing Ability: Stand By Assist/Supervision Lower Body Dressing Ability: Minimal Assistance Tub Transfer Assist: Maximal Assistance, 1 Person Assist Toileting Assist: Minimal Assistance Toilet Transfer Assist: Maximal Assistance, 1 Person Assist Comments: He continues to make progress with occupational therapy. Continues to have difficulty with tub transfers and toilet transfers assistance. His is present today and it is recommended the family education be undertaken in order to explore some home modifications and techniques to maintain strength. Again once the patient is upright he demonstrates standby assistance to complete functional mobility tasks on flat surface. - Goals New goal today: Family training in anticipation of transitioning to his home environment in the next couple of weeks. Physical Therapy Goals: 04/10 Toilet hygiene with Min assist. 04/22 Toiet transfer with min assist. Upper body dressing with min assist. Play ball with Keily. Ambulate 15 feet contact guard assist. Pull to standing in parallel bars Occupational Therapy Goals: 04/10 Goal: Toilet hygiene with Min assist- MET ( supervision/set-up). 04/22 Goal: Toilet transfer with Min assist -Continue ( Pt. requires max assist for sit to stand). Upper body dressing with min assist - MET (set-up assist). Play ball with Keily. 05/06/17 Goal: Family traning Other Patient Goals: 04/04: Play ball with Keily - Barriers to Discharge Barriers to Attaining Goals: Weakness, Balance, Endurance, Other (transfers) - Care Plan Anticipated Length of Stay (days): 14 (we recommend 14 more days pending continued progress.) Anticipated Length of Stay: Reassess in one week Anticipated DC Destination: Home, Self Care I have led this team conference and agree with the plan.
[2017-05-06] MEDS: IBUPROFEN 200 MG TABLET PO PRN (22:31)
[2017-05-06] MEDS: TAMSULOSIN 0.4 MG CAPSULE PO SCH (22:32)
[2017-05-07] MEDS: LACTOBACILLUS (15B cfu) CAPSULE PO SCH (08:54)
[2017-05-07] MEDS: DOCUSATE SODIUM 100 MG CAPSULE PO SCH ×2 (08:54→21:46)
[2017-05-07] MEDS: HYDROCORTISONE 1% CREAM 28.35gm TOP SCH ×3 (08:54→21:47)
--- NOTE | 2017-05-07 11:18 | IRU Progress Note ---
- Subjective/Serverity of Illness Anders reports no changes in his medical status. Still having occasional spasms. Bowels are moving. Tolerating therapy well. Making progress. Exam Vital Signs: Temperature 97.8 F 05/07/17 08:00 Pulse Rate 67 05/07/17 08:00 Respiratory Rate 20 05/07/17 08:00 Blood Pressure 113/65 05/07/17 08:00 Pulse Oximetry 97 05/07/17 08:00 Height/Weight/BMI: Height 1.78 m Weight 82.1 kg Body Mass Index 25.9 Comments: The patient is awake, alert and oriented and in no acute distress. The neck is supple. Chest: Clear to auscultation bilaterally. Cor: RR with no gallop, click nor murmur Extremities: No edema is noted. IRU A/P (1) Cervical myelopathy Current visit: Yes Status: Chronic Anders continues to work on transfers. He is slowly improving but still requires assistance. Ambulating with front-wheeled walker at present. (2) Muscle spasticity Current visit: Yes Status: Chronic (3) Benign essential hypertension Current visit: Yes Status: Chronic (4) Muscle contraction headache Current visit: Yes Status: Chronic DVT Prophylaxis: SCD's, Lovenox Resuscitation Status: Full Code - Course Hospital Course: Biju Aponte MD: 04/01/17 11:32 Patient is just getting started with therapies yesterday and today. So far he is tolerating these well. Blood pressures are variable. We will make sure the tizanidine is provided at the appropriate times. 04/02/17 11:34 He is cooperating well with therapies. Muscle spasm is an issue but he is getting his tizanidine on a more scheduled basis now. Blood pressures are improved. Does complain of muscle contraction headache. 04/04/17 12:19 He is cooperating and improving with therapies. Blood pressures remain variable. Muscle spasm continues to be an issue. 04/07/17 11:46 He would like to try some clonidine. I have researched this and cannot find an indication regarding muscle spasm. Have placed a call to his pain management doctor in [place] to get his opinion. Blood pressures are controlled. Continues to work with therapy. 04/08/17 11:19 He continues to progress with therapies. Awaiting phone call back from his toy painter. 04/10/17 14:11 He continues to progress. No new symptoms with regard to his spasm. Pain is adequately controlled. Appetite is good. Bowels are moving. 04/11/17 14:43 Continues to progress with therapies. He would like Chloraseptic for sore throat. There is no fever. We will start Catapres -- please see above discussion. 04/14/17 11:46 Continues to improve with therapies. Tolerating Catapres well. No evidence of hypotension He feels as though the Catapres has reduced his spasms a bit. 04/15/17 10:28 Tolerating Catapres well. No evidence of hypotension. Spasms are improved. 04/16/17 12:24 Anders continues to be very cooperative with therapy and is improving. 04/18/17 10:29 Tolerating Catapres well. Spasms are improved. He is cooperative with therapy and improving. Plan to increase Catapres on Friday evening. 04/21/17 11:23 We increased Catapres last night. Denies lightheadedness today and blood pressures are 114 systolic. Continues to work with therapy and feels better after therapy. 04/22/17 11:18 Reduced spasms per patient. Continue Catapres. Team meeting today. 04/23/17 10:59 Continue to work with patient. He believes he is making progress. There is improvement with regard to reduced tone, reduced specificity and improve range of motion as well as improved muscle strength. 04/25/17 13:52 Blood pressures are stable. He has improved with regard to reduced pain in the neck and shoulder area along with improved wheelchair mobility up to 159 feet at modified independent level. 04/28/17 12:08 Continue on current medications. He is improving with therapy. 04/29/17 11:40 Continues to tolerate and improve with therapy. May have what appears to be decorticate posturing although I have not personally evaluated or seen this. 04/30/17 10:51 He is walking better. Tolerating Catapres well. 05/05/17 11:57 No change at present. Continues to tolerate Catapres well. He is improving with therapy. 05/06/17 11:49 Switched from platform walker to regular walker. Occasional headaches as before. 05/07/17 11:18 No change in medical status. Continues to have headaches occasionally. Progressing with therapy. - Interventions to Obtain Goals PT Treatment Plan: Balance/Proprioception, Functional Activities, Gait Training , Patient/Family Education, Therapeutic Exercise OT Treatment Plan: ADL (Basic Care), Balance Training, Pt./Family Education, Ther. Exercise for ADL
[2017-05-07] MEDS: IBUPROFEN 200 MG TABLET PO PRN (21:45)
[2017-05-07] MEDS: TAMSULOSIN 0.4 MG CAPSULE PO SCH (21:46)
[2017-05-08] MEDS: APAP/ASA/Caffeine 1 TAB PO PRN (04:08)
[2017-05-08] MEDS: DOCUSATE SODIUM 100 MG CAPSULE PO SCH ×2 (08:33→22:29)
[2017-05-08] MEDS: LACTOBACILLUS (15B cfu) CAPSULE PO SCH (08:33)
[2017-05-08] MEDS: HYDROCORTISONE 1% CREAM 28.35gm TOP SCH ×3 (08:33→22:23)
--- NOTE | 2017-05-08 10:31 | IRU Progress Note ---
- Subjective/Serverity of Illness Anders states that he has minimal spasms just when he is transferring positions. Overall these are much improved. He is tolerating Catapres well. Review blood pressures shows basically normal values except one above 140. His appetite remains good and he is having bowel movements. He is progressing with therapy. Exam Vital Signs: Temperature 97.3 F 05/08/17 08:00 Pulse Rate 64 05/08/17 08:00 Respiratory Rate 16 05/08/17 08:00 Blood Pressure 112/65 05/08/17 08:00 Pulse Oximetry 95 05/08/17 08:00 Height/Weight/BMI: Height 1.78 m Weight 84.1 kg Body Mass Index 25.9 Comments: He is awake alert and oriented. Chest exam is clear Cardiac exam is unremarkable. There is no edema. Muscle tone remains unchanged. IRU A/P (1) Cervical myelopathy Current visit: Yes Status: Chronic Continues to have muscle weakness related to his myelopathy. Occasional muscle spasms noted but improved. Progressing with therapy. (2) Muscle spasticity Current visit: Yes Status: Chronic (3) Benign essential hypertension Current visit: Yes Status: Chronic Vessel majority of his blood pressures are stable and in the 120-125 range. Rare values over 140. (4) Muscle contraction headache Current visit: Yes Status: Chronic DVT Prophylaxis: SCD's, Lovenox Resuscitation Status: Full Code - Course Hospital Course: Biju Aponte MD: 04/01/17 11:32 Patient is just getting started with therapies yesterday and today. So far he is tolerating these well. Blood pressures are variable. We will make sure the tizanidine is provided at the appropriate times. 04/02/17 11:34 He is cooperating well with therapies. Muscle spasm is an issue but he is getting his tizanidine on a more scheduled basis now. Blood pressures are improved. Does complain of muscle contraction headache. 04/04/17 12:19 He is cooperating and improving with therapies. Blood pressures remain variable. Muscle spasm continues to be an issue. 04/07/17 11:46 He would like to try some clonidine. I have researched this and cannot find an indication regarding muscle spasm. Have placed a call to his pain management doctor in [place] to get his opinion. Blood pressures are controlled. Continues to work with therapy. 04/08/17 11:19 He continues to progress with therapies. Awaiting phone call back from his painter apprentice. 04/10/17 14:11 He continues to progress. No new symptoms with regard to his spasm. Pain is adequately controlled. Appetite is good. Bowels are moving. 04/11/17 14:43 Continues to progress with therapies. He would like Chloraseptic for sore throat. There is no fever. We will start Catapres -- please see above discussion. 04/14/17 11:46 Continues to improve with therapies. Tolerating Catapres well. No evidence of hypotension He feels as though the Catapres has reduced his spasms a bit. 04/15/17 10:28 Tolerating Catapres well. No evidence of hypotension. Spasms are improved. 04/16/17 12:24 Anders continues to be very cooperative with therapy and is improving. 04/18/17 10:29 Tolerating Catapres well. Spasms are improved. He is cooperative with therapy and improving. Plan to increase Catapres on Friday evening. 04/21/17 11:23 We increased Catapres last night. Denies lightheadedness today and blood pressures are 114 systolic. Continues to work with therapy and feels better after therapy. 04/22/17 11:18 Reduced spasms per patient. Continue Catapres. Team meeting today. 04/23/17 10:59 Continue to work with patient. He believes he is making progress. There is improvement with regard to reduced tone, reduced specificity and improve range of motion as well as improved muscle strength. 04/25/17 13:52 Blood pressures are stable. He has improved with regard to reduced pain in the neck and shoulder area along with improved wheelchair mobility up to 159 feet at modified independent level. 04/28/17 12:08 Continue on current medications. He is improving with therapy. 04/29/17 11:40 Continues to tolerate and improve with therapy. May have what appears to be decorticate posturing although I have not personally evaluated or seen this. 04/30/17 10:51 He is walking better. Tolerating Catapres well. 05/05/17 11:57 No change at present. Continues to tolerate Catapres well. He is improving with therapy. 05/06/17 11:49 Switched from platform walker to regular walker. Occasional headaches as before. 05/07/17 11:18 No change in medical status. Continues to have headaches occasionally. Progressing with therapy. 05/08/17 10:31 Continues to work with therapy and demonstrated improvement. Blood pressures are controlled. - Interventions to Obtain Goals PT Treatment Plan: Balance/Proprioception, Functional Activities, Gait Training , Patient/Family Education, Therapeutic Exercise OT Treatment Plan: ADL (Basic Care), Balance Training, Pt./Family Education, Ther. Exercise for ADL
[2017-05-08] MEDS: IBUPROFEN 200 MG TABLET PO PRN ×2 (15:07→22:27)
[2017-05-08] MEDS: TAMSULOSIN 0.4 MG CAPSULE PO SCH (22:28)
[2017-05-09] MEDS: DOCUSATE SODIUM 100 MG CAPSULE PO SCH ×2 (09:16→21:57)
[2017-05-09] MEDS: LACTOBACILLUS (15B cfu) CAPSULE PO SCH (09:17)
[2017-05-09] MEDS: HYDROCORTISONE 1% CREAM 28.35gm TOP SCH ×3 (09:17→21:57)
[2017-05-09] MEDS: POLYETHYL GLYCOL 3350 17gm PACKET PO PRN (09:18)
[2017-05-09] MEDS: ACETAMINOPHEN 325 MG TABLET PO PRN (15:43)
[2017-05-09] MEDS: TAMSULOSIN 0.4 MG CAPSULE PO SCH (21:57)
[2017-05-09] MEDS: IBUPROFEN 200 MG TABLET PO PRN (21:59)
[2017-05-10] MEDS: APAP/ASA/Caffeine 1 TAB PO PRN (02:52)
[2017-05-10] MEDS: HYDROCORTISONE 1% CREAM 28.35gm TOP SCH ×3 (09:23→22:26)
[2017-05-10] MEDS: DOCUSATE SODIUM 100 MG CAPSULE PO SCH ×2 (09:23→22:26)
[2017-05-10] MEDS: LACTOBACILLUS (15B cfu) CAPSULE PO SCH (09:24)
[2017-05-10] MEDS: TAMSULOSIN 0.4 MG CAPSULE PO SCH (22:25)
[2017-05-10] MEDS: IBUPROFEN 200 MG TABLET PO PRN (22:29)
[2017-05-11] MEDS: LACTOBACILLUS (15B cfu) CAPSULE PO SCH (09:19)
[2017-05-11] MEDS: DOCUSATE SODIUM 100 MG CAPSULE PO SCH ×2 (09:19→21:40)
[2017-05-11] MEDS: APAP/ASA/Caffeine 1 TAB PO PRN (09:20)
[2017-05-11] MEDS: HYDROCORTISONE 1% CREAM 28.35gm TOP SCH ×3 (09:20→21:38)
[2017-05-11] MEDS: IBUPROFEN 200 MG TABLET PO PRN (21:37)
[2017-05-11] MEDS: TAMSULOSIN 0.4 MG CAPSULE PO SCH (21:40)
[2017-05-12] MEDS: HYDROCORTISONE 1% CREAM 28.35gm TOP SCH ×2 (08:29→16:59)
[2017-05-12] MEDS: DOCUSATE SODIUM 100 MG CAPSULE PO SCH ×2 (08:29→21:09)
[2017-05-12] MEDS: LACTOBACILLUS (15B cfu) CAPSULE PO SCH (08:30)
[2017-05-12] MEDS: IBUPROFEN 200 MG TABLET PO PRN ×2 (10:52→21:09)
--- NOTE | 2017-05-12 12:14 | IRU Progress Note ---
- Subjective/Serverity of Illness Anders continues to be very cooperative with therapy and is working with both OT and PT. He denies any new problem with spasms. He denies any chest pain or shortness of breath. Appetite is good. Exam Vital Signs: Temperature 97.6 F 05/12/17 08:00 Pulse Rate 70 05/12/17 08:00 Respiratory Rate 18 05/12/17 08:00 Blood Pressure 120/65 05/12/17 08:00 Pulse Oximetry 96 05/12/17 08:00 Height/Weight/BMI: Height 1.78 m Weight 84.1 kg Body Mass Index 25.9 Comments: The patient is awake, alert and oriented and in no acute distress. Pupils are equal. The neck is supple. Chest: Clear to auscultation bilaterally. Cor: RR with no gallop, click nor murmur Abd: soft with normo-active bowel sounds. There are no masses, no tenderness and no guarding. Extremities: No edema is noted. IRU A/P (1) Cervical myelopathy Current visit: Yes Status: Chronic Continues to make slow progress with regard to therapy. Requires maximal assistance for many activities. He is very cooperative and would like to continue to work with therapy and improved. (2) Muscle spasticity Current visit: Yes Status: Chronic (3) Benign essential hypertension Current visit: Yes Status: Chronic (4) Muscle contraction headache Current visit: Yes Status: Chronic DVT Prophylaxis: SCD's, Lovenox Resuscitation Status: Full Code - Course Hospital Course: Biju Aponte MD: 04/01/17 11:32 Patient is just getting started with therapies yesterday and today. So far he is tolerating these well. Blood pressures are variable. We will make sure the tizanidine is provided at the appropriate times. 04/02/17 11:34 He is cooperating well with therapies. Muscle spasm is an issue but he is getting his tizanidine on a more scheduled basis now. Blood pressures are improved. Does complain of muscle contraction headache. 04/04/17 12:19 He is cooperating and improving with therapies. Blood pressures remain variable. Muscle spasm continues to be an issue. 04/07/17 11:46 He would like to try some clonidine. I have researched this and cannot find an indication regarding muscle spasm. Have placed a call to his pain management doctor in [place] to get his opinion. Blood pressures are controlled. Continues to work with therapy. 04/08/17 11:19 He continues to progress with therapies. Awaiting phone call back from his structural steel painter. 04/10/17 14:11 He continues to progress. No new symptoms with regard to his spasm. Pain is adequately controlled. Appetite is good. Bowels are moving. 04/11/17 14:43 Continues to progress with therapies. He would like Chloraseptic for sore throat. There is no fever. We will start Catapres -- please see above discussion. 04/14/17 11:46 Continues to improve with therapies. Tolerating Catapres well. No evidence of hypotension He feels as though the Catapres has reduced his spasms a bit. 04/15/17 10:28 Tolerating Catapres well. No evidence of hypotension. Spasms are improved. 04/16/17 12:24 Anders continues to be very cooperative with therapy and is improving. 04/18/17 10:29 Tolerating Catapres well. Spasms are improved. He is cooperative with therapy and improving. Plan to increase Catapres on Friday evening. 04/21/17 11:23 We increased Catapres last night. Denies lightheadedness today and blood pressures are 114 systolic. Continues to work with therapy and feels better after therapy. 04/22/17 11:18 Reduced spasms per patient. Continue Catapres. Team meeting today. 04/23/17 10:59 Continue to work with patient. He believes he is making progress. There is improvement with regard to reduced tone, reduced specificity and improve range of motion as well as improved muscle strength. 04/25/17 13:52 Blood pressures are stable. He has improved with regard to reduced pain in the neck and shoulder area along with improved wheelchair mobility up to 159 feet at modified independent level. 04/28/17 12:08 Continue on current medications. He is improving with therapy. 04/29/17 11:40 Continues to tolerate and improve with therapy. May have what appears to be decorticate posturing although I have not personally evaluated or seen this. 04/30/17 10:51 He is walking better. Tolerating Catapres well. 05/05/17 11:57 No change at present. Continues to tolerate Catapres well. He is improving with therapy. 05/06/17 11:49 Switched from platform walker to regular walker. Occasional headaches as before. 05/07/17 11:18 No change in medical status. Continues to have headaches occasionally. Progressing with therapy. 05/08/17 10:31 Continues to work with therapy and demonstrated improvement. Blood pressures are controlled. 05/12/17 12:13 Blood pressures remain controlled. Continues to cooperate with therapy and work on improvement. - Interventions to Obtain Goals PT Treatment Plan: Balance/Proprioception, Functional Activities, Gait Training , Patient/Family Education, Therapeutic Exercise OT Treatment Plan: ADL (Basic Care), Balance Training, Pt./Family Education, Ther. Exercise for ADL
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
--- NOTE | 2017-05-12 17:23 | IRU Progress Note ---
- Subjective/Serverity of Illness Anders has made progress while on acute rehabilitation. It is my belief that there is potential for continued improvement with intensive individualized multidisciplinary rehabilitation on inpatient basis. We have sought an extension from his workers compensation insurance company but have been denied further inpatient rehabilitation. Anders has contacted his ip attorney, [place] with whom I spoke today. Mr. Winchester states that if I authorize continued therapy this will be covered. It is my judgment based on the progress he has made that continued progress can be made for his recovery. Therefore, the discharge will be canceled and further therapy will be ordered. Exam Vital Signs: Temperature 98.3 F 05/12/17 16:00 Pulse Rate 85 05/12/17 16:00 Respiratory Rate 16 05/12/17 16:00 Blood Pressure 144/76 H 05/12/17 16:00 Pulse Oximetry 98 05/12/17 16:00 Height/Weight/BMI: Height 1.78 m Weight 84.1 kg Body Mass Index 25.9 IRU A/P (1) Cervical myelopathy Current visit: Yes Status: Chronic (2) Muscle spasticity Current visit: Yes Status: Chronic (3) Benign essential hypertension Current visit: Yes Status: Chronic (4) Muscle contraction headache Current visit: Yes Status: Chronic DVT Prophylaxis: SCD's, Lovenox Resuscitation Status: Full Code - Course Hospital Course: Biju Aponte MD: 04/01/17 11:32 Patient is just getting started with therapies yesterday and today. So far he is tolerating these well. Blood pressures are variable. We will make sure the tizanidine is provided at the appropriate times. 04/02/17 11:34 He is cooperating well with therapies. Muscle spasm is an issue but he is getting his tizanidine on a more scheduled basis now. Blood pressures are improved. Does complain of muscle contraction headache. 04/04/17 12:19 He is cooperating and improving with therapies. Blood pressures remain variable. Muscle spasm continues to be an issue. 04/07/17 11:46 He would like to try some clonidine. I have researched this and cannot find an indication regarding muscle spasm. Have placed a call to his pain management doctor in [place] to get his opinion. Blood pressures are controlled. Continues to work with therapy. 04/08/17 11:19 He continues to progress with therapies. Awaiting phone call back from his pipe bowls paint trimmer. 04/10/17 14:11 He continues to progress. No new symptoms with regard to his spasm. Pain is adequately controlled. Appetite is good. Bowels are moving. 04/11/17 14:43 Continues to progress with therapies. He would like Chloraseptic for sore throat. There is no fever. We will start Catapres -- please see above discussion. 04/14/17 11:46 Continues to improve with therapies. Tolerating Catapres well. No evidence of hypotension He feels as though the Catapres has reduced his spasms a bit. 04/15/17 10:28 Tolerating Catapres well. No evidence of hypotension. Spasms are improved. 04/16/17 12:24 Anders continues to be very cooperative with therapy and is improving. 04/18/17 10:29 Tolerating Catapres well. Spasms are improved. He is cooperative with therapy and improving. Plan to increase Catapres on Friday evening. 04/21/17 11:23 We increased Catapres last night. Denies lightheadedness today and blood pressures are 114 systolic. Continues to work with therapy and feels better after therapy. 04/22/17 11:18 Reduced spasms per patient. Continue Catapres. Team meeting today. 04/23/17 10:59 Continue to work with patient. He believes he is making progress. There is improvement with regard to reduced tone, reduced specificity and improve range of motion as well as improved muscle strength. 04/25/17 13:52 Blood pressures are stable. He has improved with regard to reduced pain in the neck and shoulder area along with improved wheelchair mobility up to 159 feet at modified independent level. 04/28/17 12:08 Continue on current medications. He is improving with therapy. 04/29/17 11:40 Continues to tolerate and improve with therapy. May have what appears to be decorticate posturing although I have not personally evaluated or seen this. 04/30/17 10:51 He is walking better. Tolerating Catapres well. 05/05/17 11:57 No change at present. Continues to tolerate Catapres well. He is improving with therapy. 05/06/17 11:49 Switched from platform walker to regular walker. Occasional headaches as before. 05/07/17 11:18 No change in medical status. Continues to have headaches occasionally. Progressing with therapy. 05/08/17 10:31 Continues to work with therapy and demonstrated improvement. Blood pressures are controlled. 05/12/17 12:13 Blood pressures remain controlled. Continues to cooperate with therapy and work on improvement. - Interventions to Obtain Goals PT Treatment Plan: Balance/Proprioception, Functional Activities, Gait Training , Patient/Family Education, Therapeutic Exercise OT Treatment Plan: ADL (Basic Care), Balance Training, Pt./Family Education, Ther. Exercise for ADL
[2017-05-12] MEDS: TAMSULOSIN 0.4 MG CAPSULE PO SCH (21:09)
[2017-05-13] MEDS: HYDROCORTISONE 1% CREAM 28.35gm TOP SCH ×4 (01:29→20:49)
[2017-05-13] MEDS: APAP/ASA/Caffeine 1 TAB PO PRN (07:38)
[2017-05-13] MEDS: DOCUSATE SODIUM 100 MG CAPSULE PO SCH ×2 (08:17→20:50)
[2017-05-13] MEDS: LACTOBACILLUS (15B cfu) CAPSULE PO SCH (08:17)
--- NOTE | 2017-05-13 11:44 | IRU Progress Note ---
- Subjective/Serverity of Illness Anders states that he feels much better today. He has more energy. His progress with therapy is variable admittedly. There have been elements of improvement as noted below: From May 07 to May 12 sit to supine transfers improved from maximal assistance to minimum assistance. Supine to sit transfers improved from maximum assistance to standby assistance. Wheelchair mobility improved from standby assistance on May 08 to modified independent on May 12. However, there has been quite a bit of variability with regard to his exercise tolerance due to energy level. He would like to continue working with therapy and I think it is reasonable to continue pursuing improvement. This is on the basis that he has demonstrated improvement in certain areas to date. Otherwise he denies any chest pain, shortness of breath or nausea. His bowels are moving. Exam Vital Signs: Temperature 97.5 F 05/13/17 08:00 Pulse Rate 74 05/13/17 08:00 Respiratory Rate 16 05/13/17 08:00 Blood Pressure 113/61 05/13/17 08:00 Pulse Oximetry 93 05/13/17 08:00 Height/Weight/BMI: Height 1.78 m Weight 84.1 kg Body Mass Index 25.9 Comments: The patient is awake, alert and oriented and in no acute distress. Pupils are equal. The neck is supple. Chest: Clear to auscultation bilaterally. Cor: RR with no gallop, click nor murmur Abd: soft with normo-active bowel sounds. There are no masses, no tenderness and no guarding. Extremities: Muscle tone increased as previously. IRU A/P (1) Cervical myelopathy Current visit: Yes Status: Chronic His progress is variable. This depends a lot on his energy level. Has made progress in specific areas as detailed in the history of present illness. To continue working with him. Team meeting today to specify reasonable outcomes and goals. (2) Muscle spasticity Current visit: Yes Status: Chronic We'll increase his clonidine to 0.1 mg every morning and 0.2 mg every evening. (3) Benign essential hypertension Current visit: Yes Status: Chronic Blood pressures are stable. (4) Muscle contraction headache Current visit: Yes Status: Chronic DVT Prophylaxis: SCD's, Lovenox Resuscitation Status: Full Code - Course Hospital Course: Biju Aponte MD: 04/01/17 11:32 Patient is just getting started with therapies yesterday and today. So far he is tolerating these well. Blood pressures are variable. We will make sure the tizanidine is provided at the appropriate times. 04/02/17 11:34 He is cooperating well with therapies. Muscle spasm is an issue but he is getting his tizanidine on a more scheduled basis now. Blood pressures are improved. Does complain of muscle contraction headache. 04/04/17 12:19 He is cooperating and improving with therapies. Blood pressures remain variable. Muscle spasm continues to be an issue. 04/07/17 11:46 He would like to try some clonidine. I have researched this and cannot find an indication regarding muscle spasm. Have placed a call to his pain management doctor in [place] to get his opinion. Blood pressures are controlled. Continues to work with therapy. 04/08/17 11:19 He continues to progress with therapies. Awaiting phone call back from his painter apprentice. 04/10/17 14:11 He continues to progress. No new symptoms with regard to his spasm. Pain is adequately controlled. Appetite is good. Bowels are moving. 04/11/17 14:43 Continues to progress with therapies. He would like Chloraseptic for sore throat. There is no fever. We will start Catapres -- please see above discussion. 04/14/17 11:46 Continues to improve with therapies. Tolerating Catapres well. No evidence of hypotension He feels as though the Catapres has reduced his spasms a bit. 04/15/17 10:28 Tolerating Catapres well. No evidence of hypotension. Spasms are improved. 04/16/17 12:24 Anders continues to be very cooperative with therapy and is improving. 04/18/17 10:29 Tolerating Catapres well. Spasms are improved. He is cooperative with therapy and improving. Plan to increase Catapres on Friday evening. 04/21/17 11:23 We increased Catapres last night. Denies lightheadedness today and blood pressures are 114 systolic. Continues to work with therapy and feels better after therapy. 04/22/17 11:18 Reduced spasms per patient. Continue Catapres. Team meeting today. 04/23/17 10:59 Continue to work with patient. He believes he is making progress. There is improvement with regard to reduced tone, reduced specificity and improve range of motion as well as improved muscle strength. 04/25/17 13:52 Blood pressures are stable. He has improved with regard to reduced pain in the neck and shoulder area along with improved wheelchair mobility up to 159 feet at modified independent level. 04/28/17 12:08 Continue on current medications. He is improving with therapy. 04/29/17 11:40 Continues to tolerate and improve with therapy. May have what appears to be decorticate posturing although I have not personally evaluated or seen this. 04/30/17 10:51 He is walking better. Tolerating Catapres well. 05/05/17 11:57 No change at present. Continues to tolerate Catapres well. He is improving with therapy. 05/06/17 11:49 Switched from platform walker to regular walker. Occasional headaches as before. 05/07/17 11:18 No change in medical status. Continues to have headaches occasionally. Progressing with therapy. 05/08/17 10:31 Continues to work with therapy and demonstrated improvement. Blood pressures are controlled. 05/12/17 12:13 Blood pressures remain controlled. Continues to cooperate with therapy and work on improvement. 05/13/17 11:45 Progress is variable but has made improvement in some areas as detailed previously. Blood pressure stable. Add on clonidine 0.1 mg every morning. - Interventions to Obtain Goals PT Treatment Plan: Balance/Proprioception, Functional Activities, Gait Training , Patient/Family Education, Therapeutic Exercise OT Treatment Plan: ADL (Basic Care), Balance Training, Pt./Family Education, Ther. Exercise for ADL Goals Progress/Modifications: Time spent with patient and on floor reviewing data and documentin min Barriers to dismissal: Endurance, balance, truncal strength. Medical decision-making: There is reason to hope that he can make additional improvement. However we need to be realistic about outcomes and anticipations of his ability to care for himself at home. Team meeting this noon to specify that and to outline realistic expectations. Continue therapy for the time being based on improvement as noted previously. Blood pressures are doing well. We will add on clonidine 0.1 mg every morning in view of his spasms.
--- NOTE | 2017-05-13 13:45 | IRU Team Meeting ---
IRU Team Meeting - Nursing Bladder Assistive Devices Utilized:: Urinal, Absorbent Pad Bladder Management Level of Assist: Modified Independent Bladder Frequency of Accidents: No accidents Bowel Assistive Devices Utilized:: Medication Bowel Management Level of Assist: Modified Independent Bowel Frequency of Accidents: No accidents Vital Signs: Vital Signs - 24 hr 05/12/17 16:00 05/13/17 08:00 Temperature 98.3 F 97.5 F Pulse Rate 85 74 Respiratory Rate 16 16 Blood Pressure 144/76 H 113/61 Pulse Oximetry 98 93 Current Medications: Acetaminophen (Tylenol) 325 - 650 mg PO Q6H PRN PRN Reason: pain Last Admin: 05/09/17 15:43 Dose: 650 mg Acetaminophen/Aspirin/Caffeine (Excedrin Xs) 2 tab PO Q6HR PRN PRN Reason: Headache Last Admin: 05/13/17 07:38 Dose: 2 tab Clonidine HCl (Catapres) 0.1 mg PO DAILY [facility] Clonidine HCl (Catapres) 0.2 mg PO HS [facility] Last Admin: 05/12/17 21:09 Dose: 0.2 mg Docusate Sodium (Colace) 100 mg PO BID [facility] Last Admin: 05/13/17 08:17 Dose: 100 mg Hydrocortisone (Cortizone-10 Cream) 1 applic TOP TID [facility] Last Admin: 05/13/17 08:18 Dose: Not Given Hydrocortisone (Cortizone-10 Cream) 1 applic TOP TID PRN PRN Reason: redness of face and neck Ibuprofen (Motrin) 200 - 800 mg PO BID PRN PRN Reason: pain Last Admin: 05/12/17 21:09 Dose: 800 mg Lactobacillus Acidophilus (Culturelle) 1 cap PO DAILY [facility] Last Admin: 05/13/17 08:17 Dose: 1 cap Polyethylene Glycol (Miralax) 17 gm PO DAILY PRN Last Admin: 05/09/17 09:18 Dose: 17 gm Tamsulosin HCl (Flomax) 0.4 mg PO HS [facility] Last Admin: 05/12/17 21:09 Dose: 0.4 mg Throat Lozenges (Chloraseptic [place]) 3 spray PO Q2H PRN PRN Reason: Sore throat Last Admin: 04/12/17 21:46 Dose: 3 spray Tizanidine HCl (Zanaflex) 4 mg PO 0700,1100,1600,2100 [facility] Last Admin: 05/13/17 11:39 Dose: 4 mg Current Medical Issues: muscle spasms, hypertension Comments: I certify that I personally led the interdisciplinary team meeting and agree with comments, barriers and goals indicated. Team meeting was held in the patient's room with the patient and the following family members present: patient's Anders is very cooperative. Continues to have muscle spasms. He is tolerating Catapres 0.2 mg at at bedtime daily. Additional 0.1 mg will be added on in the mornings to assist with diminishing his muscle spasm episodes. His blood pressure is been controlled. His appetite is good. He continues to demonstrate muscle contraction headaches for which she takes Excedrin as needed. - Physical Therapy Bed, Chair, Wheelchair Transfer Assist: Maximal Assistance, 1 Person Assist Ambulation Ability: Total Assistance, 1 Person Assist Ambulation Distance: 1 Wheelchair Propulsion Ability: Modified Independent Wheelchair Propulsion Distance: 160 Stair Climbing Ability: Patient Unsafe/Unable Car Transfer Ability: Maximal Assistance, 1 Person Assist Comments: Anders continues to be very cooperative with therapy and has great motivation to his improved. He has demonstrated improvement with transfers when utilizing an elevated surface. At this level he is requiring decreased assistance. He is able to transfer from sit to stand as long as he uses an elevated surface, 3 out of 5 times with contact-guard assistance. He is unable to do this on his own. Realistic expectations are that he will not be independent in this function for weeks or months. He does have a lift chair at home but it may not be as high as desired. Activity tolerance continues to be limited by fatigue and daily progress is variable. - Occupational Therapy Eating Ability: Modified Independent Grooming Ability: Minimal Assistance Bathing Ability: Maximal Assistance, 1 Person Assist Upper Body Dressing Ability: Stand By Assist/Supervision Lower Body Dressing Ability: Maximal Assistance Tub Transfer Assist: Total Assistance, 2 or More Person Assist Toileting Assist: Stand By Assist/Supervision Toilet Transfer Assist: Maximal Assistance, 1 Person Assist Comments: He is very cooperative with occupational therapy. He demonstrates variable progress depending on his neck discomfort and fatigue level. Several modifications are recommended to improve wheelchair accessibility. - Goals Physical Therapy Goals: 04/10 Toilet hygiene with Min assist. 04/22 Toiet transfer with min assist. Upper body dressing with min assist. Play ball with Keily. Ambulate 15 feet contact guard assist. Pull to standing in parallel bars. 05/13/17 Goals: Sit to stand 4/7 min A Occupational Therapy Goals: 04/10 Goal: Toilet hygiene with Min assist- MET ( supervision/set-up). 04/22 Goal: Toilet transfer with Min assist -Continue ( Pt. requires max assist for sit to stand). Upper body dressing with min assist - MET (set-up assist). Play ball with Keily. 05/06/17 Goal: Family traning - continue. 05/13/17 Goal: D/c planning; family training on home modifications Other Patient Goals: 04/04: Play ball with Keily - Barriers to Discharge Barriers to Attaining Goals: Weakness, Balance, Endurance - Care Plan Anticipated Length of Stay (days): 7 Anticipated DC Destination: [facility]/Facility I have led this team conference and agree with the plan. Interventions/Goals: Extensive discussion was undertaken with Anders and his during team meeting. She states that she is unable to take him home unless he is significantly more independent with transfers and walking. Clear expectations were relayed to the patient and his . While he has made progress, his improvement is variable depending on his fatigue level and neck pain. In addition, totally independent transfers from sitting to standing are not anticipated for many weeks or months. We will continue working with him for 1 more week but clearly communicated that dismissal in one week is our plan and anticipation. His indicates that she is unable to take him home. Therefore arrangements will be undertaken to find alternative placement. We have discussed with them the possibility of home health and other resources.
[2017-05-13] MEDS: IBUPROFEN 200 MG TABLET PO PRN (20:50)
[2017-05-13] MEDS: TAMSULOSIN 0.4 MG CAPSULE PO SCH (20:50)
[2017-05-14] MEDS: APAP/ASA/Caffeine 1 TAB PO PRN (06:34)
[2017-05-14] MEDS: LACTOBACILLUS (15B cfu) CAPSULE PO SCH (08:24)
[2017-05-14] MEDS: DOCUSATE SODIUM 100 MG CAPSULE PO SCH ×2 (08:24→21:49)
[2017-05-14] MEDS: POLYETHYL GLYCOL 3350 17gm PACKET PO PRN (08:25)
[2017-05-14] MEDS: HYDROCORTISONE 1% CREAM 28.35gm TOP SCH ×3 (08:25→21:51)
--- NOTE | 2017-05-14 11:50 | IRU Progress Note ---
- Subjective/Serverity of Illness Anders continues to participate well with therapy. He has made some improvements. He is very cooperative. He denies any new complaints. Today we started additional clonidine 0.1 mg every morning in addition to his 0.2 mg every night. Thus far he is tolerating this well. Exam Vital Signs: Temperature 97.5 F 05/14/17 08:00 Pulse Rate 74 05/14/17 08:00 Respiratory Rate 18 05/14/17 08:00 Blood Pressure 107/66 05/14/17 08:00 Pulse Oximetry 96 05/14/17 08:00 Height/Weight/BMI: Height 1.78 m Weight 84.1 kg Body Mass Index 25.9 Comments: The patient is awake, alert and oriented and in no acute distress. Pupils are equal. The neck is supple. Chest: Clear to auscultation bilaterally. Cor: RR with no gallop, click nor murmur Abd: soft with normo-active bowel sounds. There are no masses, no tenderness and no guarding. Extremities: Once again range of motion of neck is reduced and muscle tone increased as before. IRU A/P (1) Cervical myelopathy Current visit: Yes Status: Chronic Continues to participate with therapy and is making slow progress. Continue working with the patient. (2) Muscle spasticity Current visit: Yes Status: Chronic We added on additional Catapres every morning and he is tolerating this well thus far. (3) Benign essential hypertension Current visit: Yes Status: Chronic Blood pressures are variable but overall well controlled and are not hypotensive. (4) Muscle contraction headache Current visit: Yes Status: Chronic DVT Prophylaxis: SCD's, Lovenox Resuscitation Status: Full Code - Course Hospital Course: Biju Aponte MD: 04/01/17 11:32 Patient is just getting started with therapies yesterday and today. So far he is tolerating these well. Blood pressures are variable. We will make sure the tizanidine is provided at the appropriate times. 04/02/17 11:34 He is cooperating well with therapies. Muscle spasm is an issue but he is getting his tizanidine on a more scheduled basis now. Blood pressures are improved. Does complain of muscle contraction headache. 04/04/17 12:19 He is cooperating and improving with therapies. Blood pressures remain variable. Muscle spasm continues to be an issue. 04/07/17 11:46 He would like to try some clonidine. I have researched this and cannot find an indication regarding muscle spasm. Have placed a call to [place] get [place] opinion. Blood pressures are controlled. Continues to work with therapy. 04/08/17 11:19 He continues to progress with therapies. Awaiting phone call back from his silk screen painter. 04/10/17 14:11 He continues to progress. No new symptoms with regard to his spasm. Pain is adequately controlled. Appetite is good. Bowels are moving. 04/11/17 14:43 Continues to progress with therapies. He would like Chloraseptic for sore throat. There is no fever. We will start Catapres -- please see above discussion. 04/14/17 11:46 Continues to improve with therapies. Tolerating Catapres well. No evidence of hypotension He feels as though the Catapres has reduced his spasms a bit. 04/15/17 10:28 Tolerating Catapres well. No evidence of hypotension. Spasms are improved. 04/16/17 12:24 Anders continues to be very cooperative with therapy and is improving. 04/18/17 10:29 Tolerating Catapres well. Spasms are improved. He is cooperative with therapy and improving. Plan to increase Catapres on Friday evening. 04/21/17 11:23 We increased Catapres last night. Denies lightheadedness today and blood pressures are 114 systolic. Continues to work with therapy and feels better after therapy. 04/22/17 11:18 Reduced spasms per patient. Continue Catapres. Team meeting today. 04/23/17 10:59 Continue to work with patient. He believes he is making progress. There is improvement with regard to reduced tone, reduced specificity and improve range of motion as well as improved muscle strength. 04/25/17 13:52 Blood pressures are stable. He has improved with regard to reduced pain in the neck and shoulder area along with improved wheelchair mobility up to 159 feet at modified independent level. 04/28/17 12:08 Continue on current medications. He is improving with therapy. 04/29/17 11:40 Continues to tolerate and improve with therapy. May have what appears to be decorticate posturing although I have not personally evaluated or seen this. 04/30/17 10:51 He is walking better. Tolerating Catapres well. 05/05/17 11:57 No change at present. Continues to tolerate Catapres well. He is improving with therapy. 05/06/17 11:49 Switched from platform walker to regular walker. Occasional headaches as before. 05/07/17 11:18 No change in medical status. Continues to have headaches occasionally. Progressing with therapy. 05/08/17 10:31 Continues to work with therapy and demonstrated improvement. Blood pressures are controlled. 05/12/17 12:13 Blood pressures remain controlled. Continues to cooperate with therapy and work on improvement. 05/13/17 11:45 Progress is variable but has made improvement in some areas as detailed previously. Blood pressure stable. Add on clonidine 0.1 mg every morning. 05/14/17 11:49 Tolerating additional clonidine adequately. Blood pressures are stable. Some transfers are improved. Very cooperative with therapy and making slow progress. - Interventions to Obtain Goals PT Treatment Plan: Balance/Proprioception, Functional Activities, Gait Training , Patient/Family Education, Therapeutic Exercise OT Treatment Plan: ADL (Basic Care), Balance Training, Pt./Family Education, Ther. Exercise for ADL Goals Progress/Modifications: We anticipate a home visit for recommendations.
[2017-05-14] MEDS: ACETAMINOPHEN 325 MG TABLET PO PRN (13:28)
[2017-05-14] MEDS: IBUPROFEN 200 MG TABLET PO PRN (21:51)
[2017-05-14] MEDS: TAMSULOSIN 0.4 MG CAPSULE PO SCH (21:51)
[2017-05-15] MEDS: LACTOBACILLUS (15B cfu) CAPSULE PO SCH (08:52)
[2017-05-15] MEDS: APAP/ASA/Caffeine 1 TAB PO PRN ×2 (08:52→16:58)
[2017-05-15] MEDS: HYDROCORTISONE 1% CREAM 28.35gm TOP SCH ×3 (08:52→21:25)
[2017-05-15] MEDS: DOCUSATE SODIUM 100 MG CAPSULE PO SCH ×2 (08:52→21:25)
[2017-05-15] MEDS: TAMSULOSIN 0.4 MG CAPSULE PO SCH (21:25)
[2017-05-16] MEDS: LACTOBACILLUS (15B cfu) CAPSULE PO SCH (08:26)
[2017-05-16] MEDS: HYDROCORTISONE 1% CREAM 28.35gm TOP SCH ×3 (08:26→21:00)
[2017-05-16] MEDS: DOCUSATE SODIUM 100 MG CAPSULE PO SCH ×2 (08:26→21:00)
[2017-05-16] MEDS: APAP/ASA/Caffeine 1 TAB PO PRN (11:12)
[2017-05-16] MEDS ORDERED: MAG-AL + SIM ORAL LIQUID 30ml PO PRN (17:05)
[2017-05-16] MEDS: TAMSULOSIN 0.4 MG CAPSULE PO SCH (20:59)
[2017-05-16] MEDS: IBUPROFEN 200 MG TABLET PO PRN (22:12)
[2017-05-17] MEDS: LACTOBACILLUS (15B cfu) CAPSULE PO SCH (08:29)
[2017-05-17] MEDS: DOCUSATE SODIUM 100 MG CAPSULE PO SCH ×2 (08:29→22:51)
[2017-05-17] MEDS: HYDROCORTISONE 1% CREAM 28.35gm TOP SCH ×3 (08:30→22:52)
[2017-05-17] MEDS: METHYL SALICYLATE/MENTHOL OINT 28gm TP PRN (11:14)
[2017-05-17] MEDS: TAMSULOSIN 0.4 MG CAPSULE PO SCH (22:51)
[2017-05-17] MEDS: IBUPROFEN 200 MG TABLET PO PRN (22:54)
[2017-05-18] MEDS: HYDROCORTISONE 1% CREAM 28.35gm TOP SCH ×3 (09:00→22:10)
[2017-05-18] MEDS: DOCUSATE SODIUM 100 MG CAPSULE PO SCH ×2 (09:02→22:12)
[2017-05-18] MEDS: LACTOBACILLUS (15B cfu) CAPSULE PO SCH (09:02)
[2017-05-18] MEDS: APAP/ASA/Caffeine 1 TAB PO PRN (16:01)
[2017-05-18] MEDS: IBUPROFEN 200 MG TABLET PO PRN (22:10)
[2017-05-18] MEDS: TAMSULOSIN 0.4 MG CAPSULE PO SCH (22:13)
[2017-05-19] MEDS: LACTOBACILLUS (15B cfu) CAPSULE PO SCH (08:35)
[2017-05-19] MEDS: DOCUSATE SODIUM 100 MG CAPSULE PO SCH ×2 (08:35→22:21)
[2017-05-19] MEDS: HYDROCORTISONE 1% CREAM 28.35gm TOP SCH ×3 (08:44→22:47)
--- NOTE | 2017-05-19 11:21 | IRU Progress Note ---
- Subjective/Serverity of Illness Anders was evaluated in his room on the inpatient rehabilitation unit. Chana, child day care center worker, was present during the interview and examination as well as Chana RN. Anders indicates that last week was very difficult for him in terms of emotional upset. He states that because of this, he was not able to progress with therapy as much as he would like. I have discussed with both occupational therapy and physical therapy today. They indicate that he has not made progress since last week unfortunately. He is certainly trying to cooperate and improved but simply has not been able to make much progress. Anders indicates that this is due to his emotional upset. He continues to have occasional spasms depending on his position. We had increased his Catapres last week. He is not certain it made much difference. Exam Vital Signs: Temperature 97.6 F 05/19/17 07:35 Pulse Rate 68 05/19/17 07:35 Respiratory Rate 18 05/19/17 07:35 Blood Pressure 113/66 05/19/17 07:35 Pulse Oximetry 99 05/18/17 21:33 Height/Weight/BMI: Height 1.78 m Weight 83.5 kg Body Mass Index 25.9 Comments: He is awake alert and oriented. He is in no distress at present. Chest exam is clear. Cardiac: Regular rhythm without gallop click nor murmur. There is no edema. Muscle tone continues to be increased. IRU A/P (1) Cervical myelopathy Current visit: Yes Status: Chronic Continues to demonstrate functional deficits. He has made significant progress since his initial admission to the rehabilitation unit. However he has not been able to make much progress over the last week or so. Anders attributes this to his emotional upset particularly in the last several days. (2) Muscle spasticity Current visit: Yes Status: Chronic (3) Benign essential hypertension Current visit: Yes Status: Chronic (4) Muscle contraction headache Current visit: Yes Status: Chronic DVT Prophylaxis: SCD's, Lovenox Resuscitation Status: Full Code - Course Hospital Course: Biju Aponte MD: 04/01/17 11:32 Patient is just getting started with therapies yesterday and today. So far he is tolerating these well. Blood pressures are variable. We will make sure the tizanidine is provided at the appropriate times. 04/02/17 11:34 He is cooperating well with therapies. Muscle spasm is an issue but he is getting his tizanidine on a more scheduled basis now. Blood pressures are improved. Does complain of muscle contraction headache. 04/04/17 12:19 He is cooperating and improving with therapies. Blood pressures remain variable. Muscle spasm continues to be an issue. 04/07/17 11:46 He would like to try some clonidine. I have researched this and cannot find an indication regarding muscle spasm. Have placed a call to his pain management doctor in [place] to get his opinion. Blood pressures are controlled. Continues to work with therapy. 04/08/17 11:19 He continues to progress with therapies. Awaiting phone call back from his painter railroad car. 04/10/17 14:11 He continues to progress. No new symptoms with regard to his spasm. Pain is adequately controlled. Appetite is good. Bowels are moving. 04/11/17 14:43 Continues to progress with therapies. He would like Chloraseptic for sore throat. There is no fever. We will start Catapres -- please see above discussion. 04/14/17 11:46 Continues to improve with therapies. Tolerating Catapres well. No evidence of hypotension He feels as though the Catapres has reduced his spasms a bit. 04/15/17 10:28 Tolerating Catapres well. No evidence of hypotension. Spasms are improved. 04/16/17 12:24 Anders continues to be very cooperative with therapy and is improving. 04/18/17 10:29 Tolerating Catapres well. Spasms are improved. He is cooperative with therapy and improving. Plan to increase Catapres on Friday evening. 04/21/17 11:23 We increased Catapres last night. Denies lightheadedness today and blood pressures are 114 systolic. Continues to work with therapy and feels better after therapy. 04/22/17 11:18 Reduced spasms per patient. Continue Catapres. Team meeting today. 04/23/17 10:59 Continue to work with patient. He believes he is making progress. There is improvement with regard to reduced tone, reduced specificity and improve range of motion as well as improved muscle strength. 04/25/17 13:52 Blood pressures are stable. He has improved with regard to reduced pain in the neck and shoulder area along with improved wheelchair mobility up to 159 feet at modified independent level. 04/28/17 12:08 Continue on current medications. He is improving with therapy. 04/29/17 11:40 Continues to tolerate and improve with therapy. May have what appears to be decorticate posturing although I have not personally evaluated or seen this. 04/30/17 10:51 He is walking better. Tolerating Catapres well. 05/05/17 11:57 No change at present. Continues to tolerate Catapres well. He is improving with therapy. 05/06/17 11:49 Switched from platform walker to regular walker. Occasional headaches as before. 05/07/17 11:18 No change in medical status. Continues to have headaches occasionally. Progressing with therapy. 05/08/17 10:31 Continues to work with therapy and demonstrated improvement. Blood pressures are controlled. 05/12/17 12:13 Blood pressures remain controlled. Continues to cooperate with therapy and work on improvement. 05/13/17 11:45 Progress is variable but has made improvement in some areas as detailed previously. Blood pressure stable. Add on clonidine 0.1 mg every morning. 05/14/17 11:49 Tolerating additional clonidine adequately. Blood pressures are stable. Some transfers are improved. Very cooperative with therapy and making slow progress. 05/19/17 11:21 Blood pressures are stable. Continue working with him over the next couple of days. - Interventions to Obtain Goals PT Treatment Plan: Balance/Proprioception, Functional Activities, Gait Training , Patient/Family Education, Therapeutic Exercise OT Treatment Plan: ADL (Basic Care), Balance Training, Pt./Family Education, Ther. Exercise for ADL
[2017-05-19] MEDS: METHYL SALICYLATE/MENTHOL OINT 28gm TP PRN ×2 (22:21→22:23)
[2017-05-19] MEDS: TAMSULOSIN 0.4 MG CAPSULE PO SCH (22:21)
[2017-05-19] MEDS: IBUPROFEN 200 MG TABLET PO PRN (22:22)
[2017-05-20] MEDS: LACTOBACILLUS (15B cfu) CAPSULE PO SCH (08:40)
[2017-05-20] MEDS: DOCUSATE SODIUM 100 MG CAPSULE PO SCH ×3 (08:40→21:55)
[2017-05-20] MEDS: HYDROCORTISONE 1% CREAM 28.35gm TOP SCH ×3 (08:40→21:58)
--- NOTE | 2017-05-20 11:00 | IRU Progress Note ---
- Subjective/Serverity of Illness Date: 05/20/17 Anders was evaluated in the inpatient rehabilitation unit. He continues to be very cooperative with therapy but is easily fatigued. Unfortunately he has not made progress. We discussed with him dismissal plans. He denies any new symptoms in terms of pains or new spasms. Remains on Catapres twice daily. His blood pressures are stable. Exam Vital Signs: Temperature 97.9 F 05/20/17 08:00 Pulse Rate 74 05/20/17 08:00 Respiratory Rate 16 05/20/17 08:00 Blood Pressure 116/62 05/20/17 08:00 Pulse Oximetry 95 05/20/17 08:00 Height/Weight/BMI: Height 1.78 m Weight 83.5 kg Body Mass Index 25.9 Comments: The patient is awake, alert and oriented and in no acute distress. Chest: Clear to auscultation bilaterally. Cor: RR with no gallop, click nor murmur Abd: soft with normo-active bowel sounds. There are no masses, no tenderness and no guarding. Extremities: No edema is noted. . IRU A/P (1) Cervical myelopathy Current visit: Yes Status: Chronic Patient continues to have residuals from previous cervical injury. He is easily fatigued. Unfortunately he has not made progress over the last several days. He attributes this to discouragement and emotional upset about having to be dismissed. (2) Muscle spasticity Current visit: Yes Status: Chronic (3) Benign essential hypertension Current visit: Yes Status: Chronic Blood pressures remained stable. (4) Muscle contraction headache Current visit: Yes Status: Chronic DVT Prophylaxis: SCD's, Lovenox Resuscitation Status: Full Code - Course Hospital Course: Biju Aponte MD: 04/01/17 11:32 Patient is just getting started with therapies yesterday and today. So far he is tolerating these well. Blood pressures are variable. We will make sure the tizanidine is provided at the appropriate times. 04/02/17 11:34 He is cooperating well with therapies. Muscle spasm is an issue but he is getting his tizanidine on a more scheduled basis now. Blood pressures are improved. Does complain of muscle contraction headache. 04/04/17 12:19 He is cooperating and improving with therapies. Blood pressures remain variable. Muscle spasm continues to be an issue. 04/07/17 11:46 He would like to try some clonidine. I have researched this and cannot find an indication regarding muscle spasm. Have placed a call to his pain management doctor in [place] to get his opinion. Blood pressures are controlled. Continues to work with therapy. 04/08/17 11:19 He continues to progress with therapies. Awaiting phone call back from his painter decorator. 04/10/17 14:11 He continues to progress. No new symptoms with regard to his spasm. Pain is adequately controlled. Appetite is good. Bowels are moving. 04/11/17 14:43 Continues to progress with therapies. He would like Chloraseptic for sore throat. There is no fever. We will start Catapres -- please see above discussion. 04/14/17 11:46 Continues to improve with therapies. Tolerating Catapres well. No evidence of hypotension He feels as though the Catapres has reduced his spasms a bit. 04/15/17 10:28 Tolerating Catapres well. No evidence of hypotension. Spasms are improved. 04/16/17 12:24 Anders continues to be very cooperative with therapy and is improving. 04/18/17 10:29 Tolerating Catapres well. Spasms are improved. He is cooperative with therapy and improving. Plan to increase Catapres on Friday evening. 04/21/17 11:23 We increased Catapres last night. Denies lightheadedness today and blood pressures are 114 systolic. Continues to work with therapy and feels better after therapy. 04/22/17 11:18 Reduced spasms per patient. Continue Catapres. Team meeting today. 04/23/17 10:59 Continue to work with patient. He believes he is making progress. There is improvement with regard to reduced tone, reduced specificity and improve range of motion as well as improved muscle strength. 04/25/17 13:52 Blood pressures are stable. He has improved with regard to reduced pain in the neck and shoulder area along with improved wheelchair mobility up to 159 feet at modified independent level. 04/28/17 12:08 Continue on current medications. He is improving with therapy. 04/29/17 11:40 Continues to tolerate and improve with therapy. May have what appears to be decorticate posturing although I have not personally evaluated or seen this. 04/30/17 10:51 He is walking better. Tolerating Catapres well. 05/05/17 11:57 No change at present. Continues to tolerate Catapres well. He is improving with therapy. 05/06/17 11:49 Switched from platform walker to regular walker. Occasional headaches as before. 05/07/17 11:18 No change in medical status. Continues to have headaches occasionally. Progressing with therapy. 05/08/17 10:31 Continues to work with therapy and demonstrated improvement. Blood pressures are controlled. 05/12/17 12:13 Blood pressures remain controlled. Continues to cooperate with therapy and work on improvement. 05/13/17 11:45 Progress is variable but has made improvement in some areas as detailed previously. Blood pressure stable. Add on clonidine 0.1 mg every morning. 05/14/17 11:49 Tolerating additional clonidine adequately. Blood pressures are stable. Some transfers are improved. Very cooperative with therapy and making slow progress. 05/19/17 11:21 Blood pressures are stable. Continue working with him over the next couple of days. - Interventions to Obtain Goals PT Treatment Plan: Balance/Proprioception, Functional Activities, Gait Training , Patient/Family Education, Therapeutic Exercise OT Treatment Plan: ADL (Basic Care), Balance Training, Pt./Family Education, Ther. Exercise for ADL
[2017-05-20] MEDS: IBUPROFEN 200 MG TABLET PO PRN ×2 (11:47→21:56)
--- NOTE | 2017-05-20 14:01 | IRU Team Meeting ---
IRU Team Meeting - Nursing Bladder Assistive Devices Utilized:: Urinal Bladder Management Level of Assist: Modified Independent Bladder Frequency of Accidents: No accidents Bowel Assistive Devices Utilized:: Medication Bowel Management Level of Assist: Moderate Assistance Bowel Frequency of Accidents: 1 accident in past 7 days Vital Signs: Vital Signs - 24 hr 05/19/17 16:00 05/19/17 20:26 05/20/17 08:00 Temperature 97.6 F 98.1 F 97.9 F Pulse Rate 77 77 74 Respiratory Rate 18 16 16 Blood Pressure 137/71 141/76 H 116/62 Pulse Oximetry 98 99 95 Current Medications: Acetaminophen (Tylenol) 325 - 650 mg PO Q6H PRN PRN Reason: pain Last Admin: 05/14/17 13:28 Dose: 650 mg Acetaminophen/Aspirin/Caffeine (Excedrin Xs) 2 tab PO Q6HR PRN PRN Reason: Headache Last Admin: 05/18/17 16:01 Dose: 2 tab Al Hydroxide/Mg Hydroxide (Maalox Plus) 30 ml PO Q3H PRN PRN Reason: Indigestion Last Admin: 05/16/17 17:16 Dose: 30 ml Clonidine HCl (Catapres) 0.1 mg PO DAILY [facility] Last Admin: 05/20/17 08:40 Dose: 0.1 mg Clonidine HCl (Catapres) 0.2 mg PO HS [facility] Last Admin: 05/19/17 22:21 Dose: 0.2 mg Docusate Sodium (Colace) 100 mg PO BID [facility] Last Admin: 05/20/17 08:41 Dose: Not Given Hydrocortisone (Cortizone-10 Cream) 1 applic TOP TID [facility] Last Admin: 05/20/17 08:40 Dose: Not Given Hydrocortisone (Cortizone-10 Cream) 1 applic TOP TID PRN PRN Reason: redness of face and neck Ibuprofen (Motrin) 200 - 800 mg PO BID PRN PRN Reason: pain Last Admin: 05/20/17 11:47 Dose: 800 mg Lactobacillus Acidophilus (Culturelle) 1 cap PO DAILY [facility] Last Admin: 05/20/17 08:40 Dose: 1 cap Multi-Ingredient Ointment (Analgesic [place]) 1 applic TP PRN PRN Last Admin: 05/19/17 22:23 Dose: 1 applic Polyethylene Glycol (Miralax) 17 gm PO DAILY PRN Last Admin: 05/14/17 08:25 Dose: 17 gm Tamsulosin HCl (Flomax) 0.4 mg PO HS [facility] Last Admin: 05/19/17 22:21 Dose: 0.4 mg Throat Lozenges (Chloraseptic [place]) 3 spray PO Q2H PRN PRN Reason: Sore throat Last Admin: 04/12/17 21:46 Dose: 3 spray Tizanidine HCl (Zanaflex) 4 mg PO 0700,1100,1600,2100 [facility] Last Admin: 05/20/17 11:12 Dose: 4 mg Current Medical Issues: Hypertension, neck pain, spasms Comments: I certify that I personally led the interdisciplinary team meeting and agree with comments, barriers and goals indicated. Team meeting was held in the patient's room with the patient and the following family members present: Patient's spouse. Anders was started on an additional dose of Catapres in the morning. He does not believe this has helped his spasms any. He does complain of neck discomfort. His appetite is adequate. Continues to use Excedrin as needed for headaches. Medically he is stable. - Physical Therapy Bed, Chair, Wheelchair Transfer Assist: Maximal Assistance Ambulation Ability: Total Assistance Ambulation Distance: 16 Wheelchair Propulsion Ability: Stand By Assist/Supervision, Household Exception Wheelchair Propulsion Distance: 75 Stair Climbing Ability: Patient Unsafe/Unable Car Transfer Ability: Maximal Assistance, 1 Person Assist Comments: Anders continues to be very cooperative and diligently tries to work with therapies. Unfortunately he has not been able to make additional progress. Was able to ambulate 16 feet with total assistance. Remains at maximal assistance for bed/chair/wheelchair transfers. - Occupational Therapy Eating Ability: Modified Independent Grooming Ability: Stand By Assist/Supervision Bathing Ability: Moderate Assistance Upper Body Dressing Ability: Stand By Assist/Supervision Lower Body Dressing Ability: Maximal Assistance Tub Transfer Assist: Total Assistance, 2 or More Person Assist Toileting Assist: Moderate Assistance Toilet Transfer Assist: Moderate Assistance Comments: Patient continue to be very pleasant and cooperative with occupational therapy as well. He demonstrates various degrees of muscle tone and thus is unable to show consistent progress. Offer has been made for home visit for recommendations. Thus far patient has declined to allow that. - Goals Physical Therapy Goals: 04/10 Toilet hygiene with Min assist. 04/22 Toiet transfer with min assist. Upper body dressing with min assist. Play ball with Keily. Ambulate 15 feet contact guard assist. Pull to standing in parallel bars. 05/13/17 Goals: Sit to stand 4/7 min A - not met, inconsistent. Family training Occupational Therapy Goals: 04/10 Goal: Toilet hygiene with Min assist- MET ( supervision/set-up). 04/22 Goal: Toilet transfer with Min assist -Continue ( Pt. requires max assist for sit to stand). Upper body dressing with min assist - MET (set-up assist). Play ball with Keily. 05/06/17 Goal: Family traning - continue. 05/13/17 Goal: D/c planning; family training on home modifications. 05/20/17 Goal: d/c planning Other Patient Goals: 04/04: Play ball with Keily - Barriers to Discharge Barriers to Attaining Goals: Weakness, Balance, Endurance - Care Plan Anticipated Length of Stay (days): 2 Anticipated DC Destination: Long-Term/Facility I have led this team conference and agree with the plan.
[2017-05-20] MEDS: ACETAMINOPHEN 325 MG TABLET PO PRN ×2 (16:40→21:56)
[2017-05-20] MEDS: TAMSULOSIN 0.4 MG CAPSULE PO SCH (21:57)
[2017-05-21] MEDS: LACTOBACILLUS (15B cfu) CAPSULE PO SCH (08:34)
[2017-05-21] MEDS: APAP/ASA/Caffeine 1 TAB PO PRN (08:34)
[2017-05-21] MEDS: DOCUSATE SODIUM 100 MG CAPSULE PO SCH ×2 (08:34→21:14)
[2017-05-21] MEDS: HYDROCORTISONE 1% CREAM 28.35gm TOP SCH ×3 (10:01→21:13)
[2017-05-21] MEDS: IBUPROFEN 200 MG TABLET PO PRN (21:13)
[2017-05-21] MEDS: TAMSULOSIN 0.4 MG CAPSULE PO SCH (21:14)
[2017-05-22 08:17] VITALS: O2SAT 95
[2017-05-22] MEDS: DOCUSATE SODIUM 100 MG CAPSULE PO SCH (08:49)
[2017-05-22] MEDS: LACTOBACILLUS (15B cfu) CAPSULE PO SCH (08:49)
[2017-05-22] MEDS: HYDROCORTISONE 1% CREAM 28.35gm TOP SCH ×2 (08:49→16:22)
--- NOTE | 2017-05-22 14:13 | IRU Progress Note ---
- Subjective/Serverity of Illness Date: 05/22/17 Anders indicates there is no change in his physical situation. Bowels are moving. Appetite is good. Continues to cooperate with therapy. Exam Vital Signs: Temperature 97.9 F 05/22/17 08:00 Pulse Rate 74 05/22/17 08:00 Respiratory Rate 14 05/22/17 08:00 Blood Pressure 106/61 05/22/17 08:00 Pulse Oximetry 95 05/22/17 08:00 Height/Weight/BMI: Height 1.78 m Weight 83.6 kg Body Mass Index 25.9 Comments: The patient is awake, alert and oriented and in no acute distress. Pupils are equal. The neck is supple. Chest: Clear to auscultation bilaterally. Cor: RR with no gallop, click nor murmur Abd: soft with normo-active bowel sounds. There are no masses, no tenderness and no guarding. Extremities: No edema is noted. Complete neurologic exam was not repeated at this time. IRU A/P (1) Cervical myelopathy Current visit: Yes Status: Chronic He has made significant gains since admission. However he has plateaued at this time. Arrangements in progress for successful and safe discharge planning. (2) Muscle spasticity Current visit: Yes Status: Chronic (3) Benign essential hypertension Current visit: Yes Status: Chronic (4) Muscle contraction headache Current visit: Yes Status: Chronic DVT Prophylaxis: SCD's, Lovenox Resuscitation Status: Full Code - Course Hospital Course: Biju Aponte MD: 04/01/17 11:32 Patient is just getting started with therapies yesterday and today. So far he is tolerating these well. Blood pressures are variable. We will make sure the tizanidine is provided at the appropriate times. 04/02/17 11:34 He is cooperating well with therapies. Muscle spasm is an issue but he is getting his tizanidine on a more scheduled basis now. Blood pressures are improved. Does complain of muscle contraction headache. 04/04/17 12:19 He is cooperating and improving with therapies. Blood pressures remain variable. Muscle spasm continues to be an issue. 04/07/17 11:46 He would like to try some clonidine. I have researched this and cannot find an indication regarding muscle spasm. Have placed a call to his pain management doctor in [place] to get his opinion. Blood pressures are controlled. Continues to work with therapy. 04/08/17 11:19 He continues to progress with therapies. Awaiting phone call back from his barrel painter. 04/10/17 14:11 He continues to progress. No new symptoms with regard to his spasm. Pain is adequately controlled. Appetite is good. Bowels are moving. 04/11/17 14:43 Continues to progress with therapies. He would like Chloraseptic for sore throat. There is no fever. We will start Catapres -- please see above discussion. 04/14/17 11:46 Continues to improve with therapies. Tolerating Catapres well. No evidence of hypotension He feels as though the Catapres has reduced his spasms a bit. 04/15/17 10:28 Tolerating Catapres well. No evidence of hypotension. Spasms are improved. 04/16/17 12:24 Anders continues to be very cooperative with therapy and is improving. 04/18/17 10:29 Tolerating Catapres well. Spasms are improved. He is cooperative with therapy and improving. Plan to increase Catapres on Friday evening. 04/21/17 11:23 We increased Catapres last night. Denies lightheadedness today and blood pressures are 114 systolic. Continues to work with therapy and feels better after therapy. 04/22/17 11:18 Reduced spasms per patient. Continue Catapres. Team meeting today. 04/23/17 10:59 Continue to work with patient. He believes he is making progress. There is improvement with regard to reduced tone, reduced specificity and improve range of motion as well as improved muscle strength. 04/25/17 13:52 Blood pressures are stable. He has improved with regard to reduced pain in the neck and shoulder area along with improved wheelchair mobility up to 159 feet at modified independent level. 04/28/17 12:08 Continue on current medications. He is improving with therapy. 04/29/17 11:40 Continues to tolerate and improve with therapy. May have what appears to be decorticate posturing although I have not personally evaluated or seen this. 04/30/17 10:51 He is walking better. Tolerating Catapres well. 05/05/17 11:57 No change at present. Continues to tolerate Catapres well. He is improving with therapy. 05/06/17 11:49 Switched from platform walker to regular walker. Occasional headaches as before. 05/07/17 11:18 No change in medical status. Continues to have headaches occasionally. Progressing with therapy. 05/08/17 10:31 Continues to work with therapy and demonstrated improvement. Blood pressures are controlled. 05/12/17 12:13 Blood pressures remain controlled. Continues to cooperate with therapy and work on improvement. 05/13/17 11:45 Progress is variable but has made improvement in some areas as detailed previously. Blood pressure stable. Add on clonidine 0.1 mg every morning. 05/14/17 11:49 Tolerating additional clonidine adequately. Blood pressures are stable. Some transfers are improved. Very cooperative with therapy and making slow progress. 05/19/17 11:21 Blood pressures are stable. Continue working with him over the next couple of days. 05/22/17 14:13 Discharge planning in progress. - Interventions to Obtain Goals PT Treatment Plan: Balance/Proprioception, Functional Activities, Gait Training , Patient/Family Education, Therapeutic Exercise OT Treatment Plan: ADL (Basic Care), Balance Training, Pt./Family Education, Ther. Exercise for ADL
[2017-05-22 16:16] VITALS: BP 131/67; PULSE 61; RESP 18; TEMP 98
[2017-05-22] MEDS: ACETAMINOPHEN 325 MG TABLET PO PRN (16:21)
[2017-05-22] MEDS: IBUPROFEN 200 MG TABLET PO PRN (16:22)
--- NOTE | 2017-05-22 16:54 | Progress Note ---
Progress Note: Family conference with Grey Mcnamara, their son and [id number]. Questions were addressed. They stated they were pleased with our care up until one week ago at which time they became displeased. Patient and indicate that we had not offered them a home visit. They wondered why arrangements had not been worked out a week ago. I did advise them that we had offered to make arrangements for skilled care versus a home visit but that they had declined. Patient will be going home tonight. I recommend skilled OT and PT on an inpatient basis at a nursing facility. We are awaiting Worker's Compensation decision regarding coverage for this.
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
--- NOTE | 2017-05-23 17:48 | Letter to Referring Physician ---
Dear Lonnie, This is a brief note to bring you up-to-date on the status of Miky De La Cruz and his stay on the acute inpatient rehabilitation unit at [facility]. He was admitted to inpatient rehabilitation unit at [facility] on March 31, 2017. While on inpatient rehabilitation, this patient was seen by occupational therapy and physical therapy. A summary of his progress on rehabilitation is noted in the discharge summary. Per your suggestion, we did add on clonidine for his muscle spasms. He did feel as though this was beneficial. He is going home on 0.1 mg clonidine every morning and 0.2 mg every evening. Please see a copy of the history and physical examination as well as discharge summary enclosed with this letter for further details. Thank you for allowing us to be involved in this nice patient's care. Please contact me directly should you have any questions regarding their stay on the inpatient rehabilitation unit. Sincerely, Biju Aponte M.D. cc: Dr. Perez
== END 2017-05-22 17:55 | disposition home or self-care (01) | DRG 552 ==
PROVIDERS: ADMIT Internal Medicine; ATTEND Internal Medicine